=== PATIENT | female | born 1975 | race Caucasian/White ===

== ENCOUNTER 2017-09-01 16:58 | Emergency (ER) | payer OTHER, SELFPAY ==
[2017-09-01 17:11] VITALS: BP 154/83; PULSE 86; RESP 18; TEMP 36.7; O2SAT 98; BMI 34.7
--- NOTE | 2017-09-01 17:41 | CT_ITS ---
CT head/brain wo con Ordering Physician: Tavares Carney MD Patient Age: 41 years: Female HISTORY: ITS.REASON: vertigo several days with nausea TECHNIQUE: Standard CT head without contrast. Brain and bone windows performed and submitted to PACS. COMPARISON : No previous studies for comparison. Findings. The brain appears within normal limits with no hemorrhage. No mass. No subdural or extra-axial collection or findings. The ventricles and basal cisterns are clear. The posterior fossa is unremarkable. The CP angles are clear and unremarkable as noncontrast CT study. Sella and parasellar regions unremarkable as well on noncontrast study. Orbits and satisfactory. The bone windows show the skull to be intact with no fracture or lesion. Middle ear is clear. IACs unremarkable. Visualized portions Paranasal sinuses unremarkable. . IMPRESSION: No acute intracranial findings brain within normal limits.
--- NOTE | 2017-09-01 17:50 | HMH.EDGENADL ---
ED Disposition Clinical Impression: Vertigo Disposition: Home, Self-Care Condition on Discharge: Fair Additional Instructions: 1- sleep on a recliner at 30-60 degree angle. 2- add Zyrtec, continue flonase and cingulair. 3- see pcp for an MRI. 4- I will refer you to Dr Cox. 5- to return if worse. Referrals: Nalini Dangelo MD [Primary Care Provider] - Vaughn Cox MD [Physician] - - Critical Care Critical Care Time: No Attestation: On 09/01/17, the high probability of a clinically significant, sudden or life threatening deterioration of the following system(s) required my full and direct attention, intervention and personal management. The time I documented below is in addition to time spent performing reported procedures but includes the following listed in this critical care notation. Medical Decision Making Vital Signs: 09/01/17 17:11 Temperature 98.0 F Temperature Source Oral Pulse Rate [Right Radial] 86 Respiratory Rate 18 Blood Pressure [Right Arm] 154/83 Blood Pressure Mean [Right Arm] 106 Blood Pressure Source [Right Arm] Automatic Cuff Blood Pressure Position [Right Arm] Sitting 02 Sat by Pulse Oximetry 98 Oxygen Delivery Method Room Air - Lab Data Lab Results 09/01/17 18:20: WBC 11.2 H, RBC 4.89, Hgb 14.3, Hct 43.3, MCV 88.7, MCH 29.2, MCHC 32.9, RDW 13.5, Plt Count 329, MPV 8.4, Neut % (Auto) 59.7, Lymph % (Auto) 31.2, Bowie % (Auto) 6.6, Eos % (Auto) 1.6, Baso % (Auto) 0.8, Neut # (Auto) 6.7, Lymph # (Auto) 3.5, Bowie # (Auto) 0.7, Eos # (Auto) 0.2, Baso # (Auto) 0.1 09/01/17 18:20: Sodium 137, Potassium 3.7, Chloride 103, Carbon Dioxide 26, Anion Gap 11.7, BUN 7, Creatinine 0.71, Estimated Creat Clear 172, Estimated GFR 90, Est GFR ( Amer) 109, Glucose 90, Calcium 9.1, Total Bilirubin 0.1 L, AST 21, ALT 27, Alkaline Phosphatase 88, Total Protein 7.6, Albumin 3.9, Globulin 3.7 H, Albumin/Globulin Ratio 1.1 Result diagrams: 09/01/17 18:20 09/01/17 18:20 - Jordy Inquiry Pt receiving controlled substance: No Jordy was queried for this patient: No Medical Decision Making Narrative: The patient remained stable during her ED stay with no further symptoms. No vomiting. No paresthesia, no weakness no diplopia. I discussed her CT results with her. Understands that the next step is an MRI. Discussed this with the primary care physician in the morning. Advised her to add Zyrtec to her combination of Flonase and Singulair. She will sleep in a recliner because laying flat makes her symptoms worse. General Adult HPI - General Chief complaint: Weakness Stated complaint: dizziness, face numb, shaking Mode of Arrival: Ambulatory Limitations: No Limitations Description of Symptoms (Recalled from ER Triage Doc. by RN): symptoms started 8 days ago with nausea, vertigo, shakiness, and generalized weakness. pt seen pcp(anthony) on saturday was given meclizine but no improvement. - History of Present Illness HPI narrative: 41 years old white female status post hysterectomy who has been except experiencing progressive symptoms of vertigo dizziness and nausea for the past year. Symptoms has been worse for the last 8 days and she contacted her primary care physician she is scheduled for a head CT scan. Out of the another episode of dizziness blurry vision and ringing in the ears, took her Antivert and came to the ER requesting CT scan. He has read about her condition she concerned about the CPA angle tumor. Denies having chest pain shortness of breath palpitations or vomiting. She denies having radicular symptoms in the form of numbness tingling weakness loss of urine or bowel control. Onset (ago): year(s) (Progressive symptoms for the past year.) Location: head Radiation: non-radiation Consistency: intermittent Relieving factors: medication Exacerbating factors: movement (Increases by head movement while lying flat.) Treatments prior to arrival: other (She took her Anti
--- NOTE | 2017-09-01 17:53 | ED_ITS ---
ED Disposition Clinical Impression: Vertigo Disposition: Home, Self-Care Condition on Discharge: Fair Additional Instructions: 1- sleep on a recliner at 30-60 degree angle. 2- add Zyrtec, continue flonase and cingulair. 3- see pcp for an MRI. 4- I will refer you to Dr Cox. 5- to return if worse. Referrals: Nalini Dangelo MD [Primary Care Provider] - Vaughn Cox MD [Physician] - - Critical Care Critical Care Time: No Attestation: On 09/01/17, the high probability of a clinically significant, sudden or life threatening deterioration of the following system(s) required my full and direct attention, intervention and personal management. The time I documented below is in addition to time spent performing reported procedures but includes the following listed in this critical care notation. Medical Decision Making Vital Signs: 09/01/17 17:11 Temperature 98.0 F Temperature Source Oral Pulse Rate [Right Radial] 86 Respiratory Rate 18 Blood Pressure [Right Arm] 154/83 Blood Pressure Mean [Right Arm] 106 Blood Pressure Source [Right Arm] Automatic Cuff Blood Pressure Position [Right Arm] Sitting 02 Sat by Pulse Oximetry 98 Oxygen Delivery Method Room Air - Lab Data Lab Results 09/01/17 18:20: WBC 11.2 H, RBC 4.89, Hgb 14.3, Hct 43.3, MCV 88.7, MCH 29.2, MCHC 32.9, RDW 13.5, Plt Count 329, MPV 8.4, Neut % (Auto) 59.7, Lymph % (Auto) 31.2, Clare % (Auto) 6.6, Eos % (Auto) 1.6, Baso % (Auto) 0.8, Neut # (Auto) 6.7 , Lymph # (Auto) 3.5, Clare # (Auto) 0.7, Eos # (Auto) 0.2, Baso # (Auto) 0.1 09/01/17 18:20: Sodium 137, Potassium 3.7, Chloride 103, Carbon Dioxide 26, Anion Gap 11.7, BUN 7, Creatinine 0.71, Estimated Creat Clear 172, Estimated GFR 90, Est GFR ( Amer) 109, Glucose 90, Calcium 9.1, Total Bilirubin 0.1 L, AST 21, ALT 27, Alkaline Phosphatase 88, Total Protein 7.6, Albumin 3.9, Globulin 3.7 H, Albumin/Globulin Ratio 1.1 Result diagrams: 09/01/17 18:20 09/01/17 18:20 - Jordy Inquiry Pt receiving controlled substance: No Jordy was queried for this patient: No Medical Decision Making Narrative: The patient remained stable during her ED stay with no further symptoms. No vomiting. No paresthesia, no weakness no diplopia. I discussed her CT results with her. Understands that the next step is an MRI. Discussed this with the primary care physician in the morning. Advised her to add Zyrtec to her combination of Flonase and Singulair. She will sleep in a recliner because laying flat makes her symptoms worse. General Adult HPI - General Chief complaint: Weakness Stated complaint: dizziness, face numb, shaking Mode of Arrival: Ambulatory Limitations: No Limitations Description of Symptoms (Recalled from ER Triage Doc. by RN): symptoms started 8 days ago with nausea, vertigo, shakiness, and generalized weakness. pt seen pcp(anthony) on saturday was given meclizine but no improvement. - History of Present Illness HPI narrative: 41 years old white female status post hysterectomy who has been except experiencing progressive symptoms of vertigo dizziness and nausea for the past year. Symptoms has been worse for the last 8 days and she contacted her primary care physician she is scheduled for a head CT scan. Out of the another episode of dizziness blurry vision and ringing in the ears, took her Antivert and came to the ER requesting CT scan. He has read about her condition she concerned
[2017-09-01 18:33] LABS: Basophils # 0.1 K/mm3 (0-0.2); Basophils % 0.8 % (0.1-2.0); Eosinophils # 0.2 K/mm3 (0.0-0.4); Eosinophils % 1.6 % (0.1-12.0); Hematocrit 43.3 % (37.0-47.0); Hemoglobin 14.3 g/dL (12.2-16.2); Lymphocytes # 3.5 K/mm3 (0.7-4.5); Lymphocytes % 31.2 K/mm3 (10-50); Mean Corpuscular HGB Conc 32.9 g/dL (31.8-35.4); Mean Corpuscular Hemoglobin 29.2 pg (27.0-31.2); Mean Corpuscular Volume 88.7 fl (81-99); Mean Platelet Volume 8.4 fl (7.4-10.4); Monocytes # 0.7 K/mm3 (0.1-1.0); Monocytes % 6.6 % (1.7-9.3); Neutrophils # 6.7 K/mm3 (1.8-7.8); Neutrophils % 59.7 % (37.0-80.0); Platelet Count 329 K/mm3 (142-424); Red Blood Count 4.89 M/mm3 (4.20-5.40); Red Cell Distribution Width 13.5 % (11.5-17.5); White Blood Count 11.2 K/mm3 (4.8-10.8)
[2017-09-01 18:44] LABS: Alanine Aminotransferase 27 U/L (12-78); Albumin Level 3.9 gm/dL (3.4-5.0); Albumin/Globulin Ratio 1.1 (1.1-1.8); Alkaline Phosphatase 88 U/L (46-116); Anion Gap 11.7 mEq/L (5-15); Aspartate Amino Transferase 21 U/L (15-37); Bilirubin,Total 0.1 mg/dL (0.2-1.0); Blood Urea Nitrogen 7 mg/dL (7-18); Calcium 9.1 mg/dL (8.5-10.1); Carbon Dioxide 26 mmol/L (21.0-32.0); Chloride 103 mmol/L (98-107); Creatinine Clearance Estimated 172 mL/min (0-300); Creatinine,Serum 0.71 mg/dL (0.55-1.02); Estimated Glomerular Filt Rate 90 ml/min (>60); GFR (African American) 109 ML/MIN (>60); Globulin 3.7 gm/dl (1.3-3.2); Glucose 90 mg/dL (74-106); Potassium 3.7 mmoL/L (3.5-5.1); Sodium 137 mmol/L (136-145); Total Protein,Serum 7.6 gm/dL (6.4-8.2)
[2017-09-01 20:15] VITALS: BP 117/79; PULSE 76; RESP 20
== END 2017-09-01 20:14 | disposition home or self-care (01) ==
PROVIDERS: Emergency Provider Emergency Medicine; Family Provider Family Medicine; PCP Family Medicine
DX: R42 Dizziness and giddiness (principal); Z79.899 Other long term (current) drug therapy; Z90.710 Acquired absence of both cervix and uterus
CPT/HCPCS: 70450; 80053; 85025; 99283

== ENCOUNTER → 2018-11-06 11:19 | Outpatient (CLI) | payer OTHER, SELFPAY ==
[2018-11-06 11:44] LABS: Basophils # 0.1 K/mm3 (0-0.2); Basophils % 0.8 % (0.1-2.0); Eosinophils # 0.1 K/mm3 (0.0-0.4); Eosinophils % 1.5 % (0.1-12.0); Hematocrit 39.9 % (37.0-47.0); Hemoglobin 13.1 g/dL (12.2-16.2); Lymphocytes # 2.9 K/mm3 (0.7-4.5); Lymphocytes % 35.3 % (10-50); Mean Corpuscular HGB Conc 32.9 g/dL (31.8-35.4); Mean Corpuscular Hemoglobin 31.2 pg (27.0-31.2); Mean Corpuscular Volume 94.7 fl (81-99); Mean Platelet Volume 8.9 fl (7.4-10.4); Monocytes # 0.4 K/mm3 (0.1-1.0); Monocytes % 5.3 % (1.7-9.3); Neutrophils # 4.7 K/mm3 (1.8-7.8); Platelet Count 275 K/mm3 (142-424); Red Blood Count 4.21 M/mm3 (4.20-5.40); White Blood Count 8.2 K/mm3 (4.8-10.8)
[2018-11-06 13:04] LABS: Alanine Aminotransferase 26 U/L (12-78); Albumin/Globulin Ratio 1.2 (1.1-1.8); Alkaline Phosphatase 67 U/L (46-116); Anion Gap 13.3 mEq/L (5-15); Aspartate Amino Transferase 17 U/L (15-37); Bilirubin,Total 0.3 mg/dL (0.2-1.0); Blood Urea Nitrogen 13 mg/dL (7-18); CKMB Relative Index 0.9 U/L (0-4.0); Calcium 9.4 mg/dL (8.5-10.1); Carbon Dioxide 28 mmol/L (21.0-32.0); Chloride 105 mmol/L (98-107); Creatine Kinase 118 U/L (26-192); Creatine Kinase MB 1.1 ng/ml (0.0-3.6); Creatinine,Serum 0.72 mg/dL (0.55-1.02); Estimated Glomerular Filt Rate 88 ml/min (>60); Free T4 (Free Thyroxine) 0.82 ng/dl (0.76-1.46); GFR (African American) 106 ML/MIN (>60); Globulin 3.3 gm/dl (1.3-3.2); Glucose 96 mg/dL (74-106); Potassium 4.3 mmoL/L (3.5-5.1); Sodium 142 mmol/L (136-145); Thyroid Stimulating Hormone 1.88 uIU/ml (0.358-3.740); Total Protein,Serum 7.3 gm/dL (6.4-8.2); Troponin I 0.02 ng/ml (0.00-0.06)
[2018-11-07 07:28] LABS: Vitamin B12 879 pg/mL (232-1245); Vitamin D 25 Hydroxy 44.5 ng/mL (30.0-100.0)
== END ==
PROVIDERS: PCP Family Medicine; Visit Provider Physician Assistant
DX: R07.9 Chest pain, unspecified (principal); R00.2 Palpitations; R06.02 Shortness of breath; E03.9 Hypothyroidism, unspecified; E55.9 Vitamin D deficiency, unspecified; I10 Essential (primary) hypertension
CPT/HCPCS: 36415; 80053; 82550; 82553; 82607; 82652; 84439; 84443; 84484; 85025; 93005; 93225; 93226

== ENCOUNTER → 2018-11-17 10:55 | Outpatient (CLI) | payer OTHER, SELFPAY ==
--- NOTE | 2018-11-17 11:09 | US_ITS ---
US spinal canal content CLINICAL INDICATION: ITS.REASON: MASS ON BACK ORDERING PHYSICIAN: MELIDA Flores PATIENT AGE: 43 years Comparison: None FINDINGS: Palpable area of the inferior aspect of the left scapula was scanned demonstrating a 3.8 x 1.1 x 3 cm area of isoechogenicity in the subcutaneous tissues which may represent a lipoma. This does not represent a simple cyst IMPRESSION: Possible lipoma over the inferior aspect of left scapula. This can be confirmed with CT if clinically warranted
== END ==
PROVIDERS: PCP Family Medicine; Visit Provider Physician Assistant
DX: R22.2 Localized swelling, mass and lump, trunk (principal)
CPT/HCPCS: 76800

== ENCOUNTER → 2018-11-25 15:20 | Outpatient (POV) | payer OTHER, SELFPAY | PROVIDERS: Visit Provider Dermatology | DX: Z00.00 Encounter for general adult medical examination without abnormal findings (principal) ==

== ENCOUNTER 2018-12-05 10:04 | Day surgery (SDC) | payer OTHER, SELFPAY ==
[2018-12-05] VITALS (11 sets, daily range): BP systolic 120–140; BP diastolic 70–91; PULSE 60–82; RESP 16–20; TEMP 36.1–36.6; O2SAT 98–99; BMI 34.7
--- NOTE | 2018-12-05 11:19 | P.PN_ITS ---
[facility] Anesthesia Checklist - Patient Identification Patient Identification: Arm Band, Verbal (Name & ) - Structural Data Admitted From: Home Planned Operative Procedure/s: Excision of lipoma Left back Consent for Planned Operative Procedure(s) Verified: Yes Verified Documents: Surgical Consent, History and Physical - NPO Status Verified Time NPO: 21:00 - Additional verifications Anesthesia Reactions: No - Airway Assessment C-Spine Mobility Assessed: Yes TMJ Mobility Assessed: Yes Dentition: Good Dentition - Neurological Assessment Level of Consciousness: Awake Hx Seizures: No Numbness or tingling in extremities: No - Anesthesia Plan Anesthesia Risk discussed: Yes ASA Class: III Anesthesia Type: General [facility] History I have reviewed the patient's past medical history: Yes Medical History: Reports:: Depression, Hypertension Denies:: Cancer, Diabetes Mellitus Type 1, Diabetes Mellitus Type 2, Internal Pacemaker, MRSA, Seizures *Have you ever received a pneumonia vaccine?: No *Have you received a flu vaccine this season?: No Other Medical History: Reports: Other. Denies: Blood Transfusion Reaction Comment:: Obesity Other Surgeries: Yes: Cholecystectomy, Hysterectomy-Total, Other. No: Pacemaker Amputation: No - *Social History Smoking Status: Never smoker Alcohol Intake: never *Occupational Status:: employed Housing: house Household Members: spouse *Travel in the last 8 weeks: None - Psychiatric History Expresses thoughts of harming self/others: None Suicide Plan Description: No Plan Pschychiatric History:: Reports:: Anxiety Family Hx:: Cancer, Hypertension
--- NOTE | 2018-12-05 12:13 | HMH.OPNOTE ---
Date of procedure: 12/05/18 Pre-op Diagnosis:: Left posterior shoulder/upper back lipoma (5 cm) Post-op Diagnosis:: Left posterior shoulder/upper back vascular lesion/encapsulated hematoma with overlying lipomatous lesions Procedure performed:: Excision of left posterior shoulder/upper back lesion (5 cm) Surgeon:: Biju Cody MD WEB SEARCH EVALUATOR:: Mahad Alexander Anesthesia: LMA Estimated blood loss (mL): 15 Operative findings:: Multiple small lipomatous lesions within subcutaneous tissue Encapsulated hematoma versus vascular lesion (intramuscular) Operative note:: After informed consent was obtained the patient was taken to the operating room and placed in the supine position. General anesthesia was induced and she was transferred to a right lateral decubitus position. After infiltration local anesthetic and incision was made overlying the palpable lesion. Multiple small lipomatous growths were excised from the subcutaneous tissue. These were somewhat diffuse. Once they were excised a palpable lesion was still noticeable under the fascial margin. This intramuscular lesion was felt to most likely be customer care representative of the positive palpation/pain. The fascia was carefully opened with electrocautery. What appeared to be an encapsulated hematoma versus vascular lesion was then excised from surrounding tissue and passed off for pathologic evaluation. No ongoing bleeding noted. Hemostasis of the entire bed was achieved with electrocautery. The fascia was reapproximated with running Vicryl. The deep subcutaneous tissue was reapproximated in a similar manner and skin was then closed with interrupted 4-0 nylon. Dressings were applied and the patient was transferred to recovery in stable condition after reversal of anesthetic agents. Condition: stable Disposition: PACU Specimens:: 1) left posterior shoulder/upper back vascular lesion/encapsulated hematoma 2) left posterior shoulder/upper back lipomatous lesions Complications:: No immediate
--- NOTE | 2018-12-05 12:17 | XR_ITS ---
XR chest portable HISTORY: Status post thoracic surgery, evaluate for possible pneumothorax ITS.REASON: possible left PTX ORDERING PHYSICIAN: Biju Cody MD PATIENT AGE: 43 years COMPARISON: 06/14/2017 FINDINGS: The cardiomediastinal silhouette and pulmonary vascularity are within normal limits. The lungs are clear without infiltrates, suspicious nodules, or pleural effusions. No acute bony abnormalities. IMPRESSION: Negative chest, no acute finding No evidence of pneumothorax
--- NOTE | 2018-12-05 12:17 | P.OP_ITS ---
Date of procedure: 12/05/18 Pre-op Diagnosis:: Left posterior shoulder/upper back lipoma (5 cm) Post-op Diagnosis:: Left posterior shoulder/upper back vascular lesion/encapsulated hematoma with overlying lipomatous lesions Procedure performed:: Excision of left posterior shoulder/upper back lesion (5 cm) Surgeon:: Biju Cody MD BIT TAPPER:: Mahad Alexander Anesthesia: LMA Estimated blood loss (mL): 15 Operative findings:: Multiple small lipomatous lesions within subcutaneous tissue Encapsulated hematoma versus vascular lesion (intramuscular) Operative note:: After informed consent was obtained the patient was taken to the operating room and placed in the supine position. General anesthesia was induced and she was transferred to a right lateral decubitus position. After infiltration local anesthetic and incision was made overlying the palpable lesion. Multiple small lipomatous growths were excised from the subcutaneous tissue. These were somewhat diffuse. Once they were excised a palpable lesion was still noticeable under the fascial margin. This intramuscular lesion was felt to most likely be signs sales representative of the positive palpation/pain. The fascia was carefully opened with electrocautery. What appeared to be an encapsulated hematoma versus vascular lesion was then excised from surrounding tissue and passed off for pathologic evaluation. No ongoing bleeding noted. Hemostasis of the entire bed was achieved with electrocautery. The fascia was reapproximated with running Vicryl. The deep subcutaneous tissue was reapproximated in a similar manner and skin was then closed with interrupted 4-0 nylon. Dressings were applied and the patient was transferred to recovery in stable condition after reversal of anesthetic agents. Condition: stable Disposition: PACU Specimens:: 1) left posterior shoulder/upper back vascular lesion/encapsulated hematoma 2) left posterior shoulder/upper back lipomatous lesions Complications:: No immediate
--- NOTE | 2018-12-05 12:20 | HMH.ANESI ---
[facility] Anesthesia Record Part I Intake, IV Amount: 700 Estimated blood loss (mL): 20 Urine output (mL): 0 (NM) Blood Products used (#): none Blood Pressure: 140/87 SaO2: 98 Pulse Rate: 82 Respiratory Rate: 16 Temperature: 97.8 F Patient is:: Awake, Stable Stable to PACU at:: 12:15
--- NOTE | 2018-12-05 12:21 | P.PN_ITS ---
[facility] Anesthesia Record Part II Discharge Time: 12:45 Destination: Surgical Day Care (OP Surgery) PACU nurse assessment reviewed?: Yes Patient Condition:: Good Anesthesia Complications:: None Swallowing reflex intact?: Yes Cyanosis?: No
== END 2018-12-05 13:40 | disposition home or self-care (01) ==
LOC: OR 10:05
PROVIDERS: PCP Family Medicine; Visit Provider Surgery
PROC: (CPT 11406; principal; 2018-12-05 11:30)
DX: D17.1 Benign lipomatous neoplasm of skin and subcutaneous tissue of trunk (principal); D18.01 Hemangioma of skin and subcutaneous tissue
CPT/HCPCS: 11406; 71045; 96374; J2405

== ENCOUNTER → 2019-07-29 12:25 | Outpatient (CLI) | payer OTHER, SELFPAY ==
--- NOTE | 2019-07-29 12:36 | ECG_ITS ---
APPROVED REPORT Exam: Resting ECG HR:61 bpm ECG Measurements Heart Rate 61 AXES DC 150 P 35 QRSd 76 QRS 50 QT 392 T 24 QTc 394 <Conclusion> Normal sinus rhythm Normal ECG Electronically signed by : Ayan Fairchild, 07/30/2019 09:16:17
== END ==
PROVIDERS: PCP Nurse Practitioner Family; Visit Provider Nurse Practitioner Family
DX: R00.2 Palpitations (principal)
CPT/HCPCS: 93005

== ENCOUNTER → 2019-09-28 09:28 | Outpatient (CLI) | payer OTHER, SELFPAY ==
--- NOTE | 2019-09-28 09:30 | CA_ITS ---
APPROVED REPORT EXAM: Comprehensive 2D, Doppler, and color-flow Echocardiogram Zinc Plating Machine Operator: Janice Elliott RDCS Ht: 5 ft 9 in Wt: 240lbs BSA: 2.23 BP: 130/80 mmHg Indications: Murmur, Hypertension/HDD 2D Dimensions LVOT 2.11 cm (M/F) 1.5-2.5 M-Mode Dimensions RVDd 3.00 cm (0.9-2.6) LVDd 5.61 cm (3.5-5.7) LVDs 3.94 cm (3.5-5.7) IVSd 0.76 cm (0.6-1.1) PWd 0.91 cm (0.6-1.1) EF (Teich) 56.30% FS 29.80% EDV (Teich) 154.30 mL ESV (Teich) 67.50 mL LV Diastology E/A Ratio 1.13 Aortic Valve LVOT Max 86.00 (70-110 cm/s) LVOT VTI 21.03 cm Mitral Valve MV A Velocity 64.00 (40-130 cm/s) Left Ventricle Left atrium is mildly enlarged, left ventricle is normal size, mild concentric left ventricular hypertrophy, visually estimated ejection fraction 55% with no regional wall motion abnormality, grade 1 diastolic dysfunction seen without tissue Doppler evidence of raise left atrial pressure. Right Ventricle Right atrium and right ventricular normal size and contractility. Aortic Valve Aortic valve is thickened and calcified with mild restriction in the leaflet mobility, the mean gradient across aortic valve is 13 mmHg, valve area is 1.4 cm, represents mild aortic stenosis, there is mild aortic insufficiency. Mitral Valve Mitral inflow velocity within normal range, there is no mitral stenosis, there is mild mitral regurgitation. Tricuspid Valve Tricuspid valve is grossly normal, there is no tricuspid stenosis, there is mild tricuspid regurgitation, tricuspid regurgitation jet velocity is inadequate for calculation of the right ventricular systolic pressure. Pulmonic Valve Pulmonic valve is poorly visualized. Great Vessels Aortic root is normal size. Pericardium No significant pericardial effusion noted. Conclusion 1. Mildly enlarged left atrium, normal left ventricular size, mild concentric left ventricular hypertrophy, visually estimated ejection fraction 55% with no regional wall motion abnormality, grade 1 diastolic dysfunction seen without tissue Doppler evidence of raise left atrial pressure. 2. Thickened and calcified aortic valve with mean gradient across valve of 13 mmHg, valve area 1.4 cm??? represents mild aortic stenosis, there is mild aortic insufficiency. 3. Mild mitral and tricuspid regurgitation. 4. No significant pericardial effusion noted. Electronically signed by : Jeffry White, 09/28/2019 18:52:00
[2019-09-28 12:18] LABS: Alanine Aminotransferase 22 U/L (9-52); Albumin Level 3.8 g/dL (3.4-5.0); Albumin/Globulin Ratio 1.2 (1.1-1.8); Alkaline Phosphatase 65 U/L (46-116); Anion Gap 12.7 mEq/L (5-15); Aspartate Amino Transferase 19 U/L (15-37); Bilirubin,Total 0.2 mg/dL (0.2-1.0); Blood Urea Nitrogen 14 mg/dL (7-18); Calcium 9.1 mg/dL (8.5-10.1); Carbon Dioxide 27 mmol/L (21.0-32.0); Chloride 109 mmol/L (98-107); Chol/HDL Ratio 4.6 (1-3.5); Cholesterol 217 mg/dL (140-200); Estimated Glomerular Filt Rate 78 ml/min (>60); Free T4 (Free Thyroxine) 0.83 ng/dl (0.76-1.46); GFR (African American) 94 ML/MIN (>60); Globulin 3.3 gm/dl (1.3-3.2); Glucose 96 mg/dL (74-106); HDL Cholesterol 47 mg/dL (29-89); LDL Cholesterol 145 mg/dL (0-130); Potassium 4.7 mmoL/L (3.5-5.1); Sodium 144 mmol/L (137-145); Thyroid Stimulating Hormone 1.96 uIU/ml (0.358-3.740); Total Protein,Serum 7.1 g/dL (6.4-8.2); Triglycerides 124 mg/dL (30-200); VLDL Cholesterol 25 mg/dL (0-40)
== END ==
LOC: RT 09:28
PROVIDERS: PCP Physician Assistant; Visit Provider Physician Assistant
DX: R01.1 Cardiac murmur, unspecified (principal); R00.2 Palpitations; Z13.220 Encounter for screening for lipoid disorders
CPT/HCPCS: 36415; 80053; 80061; 84439; 84443; 93306

== ENCOUNTER → 2019-09-29 09:44 | Outpatient (CLI) | payer OTHER, SELFPAY | LOC: RT 09:46 | PROVIDERS: PCP Family Medicine; Visit Provider Physician Assistant | DX: R00.2 Palpitations (principal); R07.9 Chest pain, unspecified; I10 Essential (primary) hypertension; R94.31 Abnormal electrocardiogram [ECG] [EKG] | CPT/HCPCS: 93225; 93226 ==

== ENCOUNTER → 2019-10-05 14:59 | Outpatient (CLI) | payer OTHER, SELFPAY ==
--- NOTE | 2019-10-05 15:00 | CA_ITS ---
APPROVED REPORT Exam: Exercise Treadmill Technologist: Kristy Willis Ht: 5 ft 9 in Wt: 239 lbs BSA: 2.23 m2 Indications: Chest pain, Palpitations Medical History Medications: Sertraline,,,,, NeBivolol,,,,, Stress Test Details Test: Jamie HR Resting HR: 83 bpm Max Heart Rate (APMHR): 175 bpm Max HR Achieved: 156 bpm Target HR (85% APMHR): 148 bpm % of APMHR: 89 Recovery HR: 84 bpm BP Resting BP: 131.0/69.0 mmHg Max BP: 168.0/85.0 mmHg Recovery BP: 141.0/75.0 mmHg ECG Clinical Exercise duration: 06:53 min Highest Stage Achieved: Exercise capacity: 10.1 METs Stress ECG Conclusion Resting ECG: Sinus rhythm Jamie protocol completed. Patient exercised 06:53. Test stopped due to shortness of breath. Symptoms: Shortness of breath at peak exercise. Resolved in recovery. No chest pain. Arrhythmias/Ectopy: Occasional PVC ST-T Changes: Less than 1.[address] depression Conclusion: GXT only. Less than 1.[address] depression. Appropriate blood pressure response. Good exercise capacity. Electronically signed by : Jeffry White, 10/05/2019 20:12:02
== END ==
PROVIDERS: PCP Family Medicine; Visit Provider Physician Assistant
DX: R07.9 Chest pain, unspecified (principal); R00.2 Palpitations; R94.31 Abnormal electrocardiogram [ECG] [EKG]; I35.0 Nonrheumatic aortic (valve) stenosis; I35.1 Nonrheumatic aortic (valve) insufficiency; E78.5 Hyperlipidemia, unspecified; I10 Essential (primary) hypertension
CPT/HCPCS: 93017

== ENCOUNTER → 2019-10-20 14:49 | Outpatient (CLI) | payer OTHER, SELFPAY ==
--- NOTE | 2019-10-20 14:49 | US_ITS ---
PROCEDURE: US THYROID CLINICAL INDICATION: palps COMPARISON: No exams were available for comparison FINDINGS: Right lobe: 4.3 x 1.6 x 1.6 cm Left lobe: 4.4 x 1.4 x 2 cm Isthmus: Unremarkable Additional findings: Homogeneous echogenicity noted of the thyroid gland on both sides. No discrete nodule. IMPRESSION: Unremarkable thyroid ultrasound Dictated by: Madhu Ernandez MD 10/20/2019 15:50 Electronically signed by Madhu Ernandez MD in [place] 10/20/2019 15:50
== END ==
PROVIDERS: PCP Family Medicine; Visit Provider Urology
DX: R00.2 Palpitations (principal)
CPT/HCPCS: 76536

== ENCOUNTER → 2019-11-20 10:05 | Outpatient (CLI) | payer OTHER, SELFPAY ==
--- NOTE | 2019-11-20 10:06 | MM_ITS ---
PROCEDURE: MM DIG MAMM BI DX W/CAD Digital Breast Tomosynthesis Included CLINICAL INDICATION: abnormal xmg and pt. found lump in her Rt. breast COMPARISON: US BREAST RT COMPLETE from 11/20/2019 TECHNIQUE: Standard CC and MLO images and 3D Tomosynthesis was obtained. R2 CAD reviewed. Right breast ultrasound complete with axilla FINDINGS: There is average fibroglandular tissue. There is a large right lipoma involving the upper outer aspect of the right breast. This measures approximately 13x 9x 9.8 cm. Benign-appearing calcifications are present. A marker is placed along the lower inner aspect of the right breast denoting the area of palpable concern. There is an area of increased density at the inferior mammary fold probably due to overlap the tissues just posterior to the placed area of palpable concern. No malignant appearing mass or malignant-appearing microcalcification. There are probably benign calcifications in the outer aspect of the right breast. A Right breast ultrasound: There is a 4 mm cyst at 1 o'clock and 5 mm cyst at 3 o'clock near the nipple. No sonographic abnormality evident at the area of palpable concern. IMPRESSION: Probably benign findings. No convincing evidence of malignancy. Large right breast lipoma with scattered calcifications in the outer aspect of the right breast. Recommend six-month mammographic and sonographic follow-up BI-RAD Category: 3 Probably Benign Finding Short Term Follow-up FOLLOW-UP: 6M 6Month Follow-up (A letter has been sent to the patient regarding results of the study.) Dictated by: Madhu Ernandez MD 12/02/2019 09:44 Electronically signed by Madhu Ernandez MD in [place] 12/02/2019 09:44
--- NOTE | 2019-11-20 11:19 | US_ITS ---
PROCEDURE: US BREAST RT COMPLETE CLINICAL INDICATION: abnormal xmg and pt. found lump in her Rt. breast COMPARISON: US BREAST RT COMPLETE from 11/20/2019 TECHNIQUE: Standard CC and MLO images and 3D Tomosynthesis was obtained. R2 CAD reviewed. Right breast ultrasound complete with axilla FINDINGS: There is average fibroglandular tissue. There is a large right lipoma involving the upper outer aspect of the right breast. This measures approximately 13x 9x 9.8 cm. Benign-appearing calcifications are present. A marker is placed along the lower inner aspect of the right breast denoting the area of palpable concern. There is an area of increased density at the inferior mammary fold probably due to overlap the tissues just posterior to the placed area of palpable concern. No malignant appearing mass or malignant-appearing microcalcification. There are probably benign calcifications in the outer aspect of the right breast. A Right breast ultrasound: There is a 4 mm cyst at 1 o'clock and 5 mm cyst at 3 o'clock near the nipple. No sonographic abnormality evident at the area of palpable concern. IMPRESSION: Probably benign findings. No convincing evidence of malignancy. Large right breast lipoma with scattered calcifications in the outer aspect of the right breast. Recommend six-month mammographic and sonographic follow-up BI-RAD Category: 3 Probably Benign Finding Short Term Follow-up FOLLOW-UP: 6M 6Month Follow-up (A letter has been sent to the patient regarding results of the study.) The Dictated by: Madhu Ernandez MD 12/02/2019 09:45 Electronically signed by Madhu Ernandez MD in [place] 12/02/2019 09:45
== END ==
PROVIDERS: PCP Psychiatry & Neurology Sleep Medicine; Visit Provider Nurse Practitioner Obstetrics & Gynecology
DX: R92.8 Other abnormal and inconclusive findings on diagnostic imaging of breast (principal)
CPT/HCPCS: 76641; 77062; 77066; G0279

== ENCOUNTER → 2020-05-09 13:53 | Outpatient (CLI) | payer OTHER, SELFPAY ==
--- NOTE | 2020-05-09 13:56 | MM_ITS ---
PROCEDURE: MM DIG MAMM DX UNILAT RT CAD Digital Breast Tomosynthesis Included CLINICAL INDICATION: 6 mo. follow up Six-month follow-up, bloody discharge COMPARISON: MG MM DIG MAMM BI DX W/CAD from 11/20/2019 US US BREAST RT COMPLETE from 11/20/2019 US US BREAST RT COMPLETE from 05/09/2020 TECHNIQUE: Standard CC and MLO images and 3D Tomosynthesis was obtained. R2 CAD reviewed. 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 There are scattered benign-appearing calcifications. No malignant appearing mass or malignant-appearing microcalcification is evident. There remains an area of increased density in the inframammary fold which may be due to summation artifact from overlying skin folds Right breast ultrasound: A 5 mm cyst is present at 1 o'clock. 4 mm cyst at 2 o'clock. 7 mm complicated cyst at 3 o'clock IMPRESSION: Benign findings. Recommend return to screening October 2020 BI-RAD Category: 2 Benign Finding(s) FOLLOW-UP: 6M 6Month Follow-up (A letter has been sent to the patient regarding results of the study.) Dictated by: Madhu Ernandez MD 05/11/2020 17:35 Madhu Ernandez MD in [place] 05/11/2020 17:35
== END ==
PROVIDERS: PCP Family Medicine; Visit Provider Nurse Practitioner Obstetrics & Gynecology
DX: R92.8 Other abnormal and inconclusive findings on diagnostic imaging of breast (principal)
CPT/HCPCS: 76641; 77061; 77065; G0279

== ENCOUNTER 2020-08-08 14:51 | Emergency (ER) | payer OTHER, SELFPAY ==
--- NOTE | 2020-08-08 15:23 | HMH.EDUTC ---
[facility] Disposition Clinical Impression: Viral syndrome Disposition: Home, Self-Care Condition on Discharge: Good Instructions: Preventing the Spread of Coronavirus Discharge Instructions Additional Instructions: Drink plenty of fluids. Take tylenol for pain or fever. Return if you begin to have difficulty breathing. Follow up with your regular doctor. GO TO THE ER FOR ANY WORSENING SYMPTOMS Prescriptions: Ondansetron [Zofran 4mg ODT] 4 mg PO Q8HP PRN #12 tab.rapdis PRN Reason: Nausea Transmission Status: Received by [id number] Referrals: Yuni Xie MD [Primary Care Provider] - Time of Disposition: 15:49 Medical Decision Making - Medical Records Medical records reviewed: No: I reviewed the patient's medical records. - Jordy Inquiry Pt receiving controlled substance: No Vital Signs: 08/08/20 15:28 08/08/20 15:51 Temperature 98.2 F 98.2 F Temperature Source Oral Pulse Rate 58 L Pulse Rate [Left] 58 L Respiratory Rate 16 17 Blood Pressure 127/84 Blood Pressure [Right Arm] 127/84 Blood Pressure Mean [Right Arm] 98 Blood Pressure Source [Right Arm] Automatic Cuff Blood Pressure Position [Right Arm] Sitting 02 Sat by Pulse Oximetry 98 Oxygen Delivery Method Room Air Orders (Tests/Meds): ORDERS Category Date Time Status Covid-19 Nasal PCR Sendout P&C Routine Lab 08/08/20 15:15 Received [facility] HPI - General Stated complaint: covid exposure Time Seen by Provider: 08/08/20 15:23 - History of Present Illness Provider Complaint: Her son has covid. She states that since yesteday she has had body aches and sore throat. - Related Data Home Medications Medication Instructions Recorded Confirmed sertraline 100 mg tablet 100 mg PO DAILY tab 11/26/18 06/29/20 nebivolol 5 mg tablet 5 mg PO BID tab 09/29/19 06/29/20 Previous Rx's Medication Instructions Recorded Ondansetron [Zofran 4mg ODT] 4 mg PO Q8HP PRN #12 tab.rapdis 08/08/20 Allergies Allergy/AdvReac Type Severity Reaction Status Date / Time No Known Drug Intolerances Allergy Unknown NA Verified 08/08/20 15:47 [facility] History - Hepatitis A Screen Attestation statement:: This patient has been screened for Hepatitis A risk factors. I have reviewed the patient's past medical history: Yes Medical History: Reports:: Anxiety, Depression, Heart Murmur, Hypertension Denies:: Cancer, Diabetes Mellitus Type 1, Diabetes Mellitus Type 2, Internal Pacemaker, MRSA, Seizures Other Medical History: Reports: Thyroid Disease, Other. Denies: Blood Transfusion Reaction Comment: Obesity Other Surgeries: Yes: Cholecystectomy, Colonoscopy, Diagnostic Lap, Hysterectomy-Total, Other. No: Pacemaker Amputation: No Comment: shoulder lipoma removed, ganglion cyst partial removal - Social History Smoking Status: Never smoker Alcohol Intake: never Occupational Status: employed Housing: house Household Members: spouse - Psychiatric History Pschychiatric History:: Reports:: Anxiety, Depression Family Hx:: Cancer, Hypertension ROS Obtained: Yes All systems reviewed & no additional complaints - Constitutional Constitutional: Reports system reviewed and no additional complaints, except as docu - Eyes Eyes: Reports system reviewed and no additional complaints, except as docu - ENT Ears, Nose, Mouth, and Throat: Reports system reviewed and no additional complaints, except as docu - Cardiovascular Cardiovascular: Reports system reviewed and no additional complaints, except as docu - Respiratory Respiratory: Yes system reviewed and no additional complaints, except as docu - Gastrointestinal Gastrointestingal: Reports: system reviewed and no additional complaints, except as docu Physical Exam - General General appearance: alert, in no apparent distress - Head Head exam: atraumatic, normocephalic, normal inspection - Eye Eye exam: Present: normal appearance, PERRL, EOMI -
[2020-08-08 15:28] VITALS: BP 127/84; PULSE 58; RESP 16; TEMP 36.8; O2SAT 98; BMI 18.4
[2020-08-08 15:51] VITALS: BP 127/84; PULSE 58; RESP 17; TEMP 36.8; O2SAT 98
[2020-08-10 10:01] LABS: Covid-19 Nasal PCR Sendout P&C Negative
== END 2020-08-08 15:51 | disposition home or self-care (01) ==
PROVIDERS: Emergency Provider Nurse Practitioner Family; PCP Family Medicine
DX: Z20.828 Contact with and (suspected) exposure to other viral communicable diseases (principal); B34.9 Viral infection, unspecified; F41.8 Other specified anxiety disorders; I10 Essential (primary) hypertension; R01.1 Cardiac murmur, unspecified; Z79.899 Other long term (current) drug therapy
CPT/HCPCS: 99201; U0004

== ENCOUNTER 2020-11-26 06:59 | Emergency (ER) | payer OTHER, SELFPAY ==
[2020-11-26] VITALS (7 sets, daily range): BP systolic 111–132; BP diastolic 69–80; PULSE 59–78; RESP 12–16; TEMP 36.6–36.9; O2SAT 96–98; BMI 38.0; BMI 39.7
--- NOTE | 2020-11-26 06:47 | ECG_ITS ---
APPROVED REPORT Exam: Resting ECG HR:63 bpm ECG Measurements Heart Rate [address] 146 P 35 QRSd 86 QRS 1 QT 408 T 81 QTc 417 Conclusion Normal sinus rhythm Normal ECG Electronically signed by : Ayan Fairchild, 11/27/2020 07:26:07
--- NOTE | 2020-11-26 07:07 | XR_ITS ---
PROCEDURE: XR CHEST 2V CLINICAL HISTORY: chest pain COMPARISON: CR CXR CHEST(2 VIEWS-NOT PORTABLE) from 06/14/2017 FINDINGS: The cardiomediastinal silhouette and pulmonary vascularity are within normal limits. The lungs are clear without infiltrates, suspicious nodules, or pleural effusions. No acute bony abnormalities. IMPRESSION: No acute findings. Dictated by: Madhu Ernandez MD 11/26/2020 09:07 Madhu Ernandez MD in [place] 11/26/2020 09:07
--- NOTE | 2020-11-26 07:07 | CT_ITS ---
PROCEDURE: CT ABDOMEN PELVIS W CON CLINICAL INDICATION: Abd Pain Abdominal pain COMPARISON: No exams were available for comparison TECHNIQUE: IV Contrast: 75ML Isovue 370 Oral Contrast None Axial images obtained with sagittal and coronal reformats. All CT scans at the facility use one or more dose reduction, viz: automated exposure control, ma/kV adjustment per patient size (including targeted exams where dose is matched to indication, i.e. head), or iterative reconstruction technique. FINDINGS: LOWER THORAX: No acute finding ABDOMEN & PELVIS: Fatty liver. No focal liver lesion evident. Borderline splenomegaly at 13 cm. The adrenal glands, pancreas, and kidneys have an unremarkable appearance. Prior cholecystectomy. Mild amount retained colonic feces. No intestinal obstruction or free air. No evidence of appendicitis or diverticulitis. Tiny umbilical hernia containing fat. Prior hysterectomy. Mild degenerative disc disease L5-S1. IMPRESSION: No acute finding Dictated by: Madhu Ernandez MD 11/26/2020 08:25 Madhu Ernandez MD in [place] 11/26/2020 08:25
[2020-11-26 07:24] LABS: Basophils # 0.1 K/mm3 (0-0.2); Basophils % 0.8 % (0.1-2.0); Eosinophils # 0.2 K/mm3 (0.0-0.4); Eosinophils % 2.6 % (0.1-12.0); Hematocrit 40.4 % (37.0-47.0); Hemoglobin 13.5 g/dL (12.2-16.2); Lymphocytes # 3.2 K/mm3 (0.7-4.5); Lymphocytes % 35.3 % (10-50); Mean Corpuscular HGB Conc 33.4 g/dL (31.8-35.4); Mean Corpuscular Hemoglobin 30.6 pg (27.0-31.2); Mean Corpuscular Volume 91.8 fl (81-99); Mean Platelet Volume 8.4 fl (7.4-10.4); Monocytes # 0.5 K/mm3 (0.1-1.0); Monocytes % 5.5 % (1.7-9.3); Neutrophils % 55.8 % (37.0-80.0); Platelet Count 244 K/mm3 (142-424); Red Cell Distribution Width 13.2 % (11.5-17.5)
[2020-11-26 07:33] LABS: Alanine Aminotransferase 20 U/L (12-78); Albumin Level 4.3 g/dl (3.5-5.0); Alkaline Phosphatase 76 U/L (38-126); Amylase 48 U/L (30-110); Anion Gap 13.8 mEq/L (5-15); Aspartate Amino Transferase 28 U/L (14-36); Bilirubin,Indirect 0.4 mg/dL (0.0-0.9); Bilirubin,Total 0.4 mg/dl (0.2-1.3); Bilirubin,Unconjugated 0.4 mg/dL (0.0-1.1); Blood Urea Nitrogen 12 mg/dl (7-17); Calcium 9.5 mg/dl (8.4-10.2); Carbon Dioxide 20 mmol/L (22.0-30.0); Chloride 108 mmol/L (98-107); Creatinine Clearance Estimated 181 mL/min (50-200); Estimated Glomerular Filt Rate 90 ml/min (>60); GFR (African American) 109 ML/MIN (>60); Glucose 117 mg/dl (74-100); Lipase 136 U/L (23-300); Potassium 3.8 mmoL/L (3.5-5.1); Sodium 138 mmol/L (136-145); Total Protein,Serum 7.3 g/dl (6.3-8.2)
[2020-11-26 07:38] LABS: C-Reactive Protein 8.7 mg/L (0-4)
[2020-11-26 07:49] LABS: Troponin I < 0.01 ng/ml (0.00-0.034)
[2020-11-26 07:51] LABS: Erythrocyte Sedimentation Rate 23 mm/hr (0-20)
[2020-11-26 07:52] LABS: Procalcitonin 0.031 ng/mL (0.0-2.0)
--- NOTE | 2020-11-26 07:58 | HMH.EDGENADL ---
ED Disposition Clinical Impression: Atypical chest pain, Globus sensation Disposition: Home, Self-Care Condition on Discharge: Fair Instructions: Esophageal Dysphagia, DI for Gastroesophageal Reflux Disease (GERD), DI for Atypical Chest Pain Additional Instructions: You have been evaluated for atypical chest pain, throat pain, pain with swallowing. This is concerning for esophageal pathology, globus. Please follow-up with your primary care doctor in 24 to 48 hours. Take omeprazole. Take Carafate as needed for symptoms. Follow bland diet. Do not eat before bedtime. Follow-up with gastroenterology when available. Return to the emergency department at once for any new or worsening chest pain, shortness of breath, other concerns. Prescriptions: Sucralfate [Carafate 1gm/10mL Susp] 1 gm PO ACHS #500 ml Transmission Status: Pending to [facility] Omeprazole [Omeprazole 20mg Capsule] 20 mg PO DAILY #30 cap Transmission Status: Pending to [facility] Referrals: Yuni Xie MD [Primary Care Provider] - Patrick Zaidi MD [Staff Physician] - Time of Disposition: 10:34 - Critical Care Critical Care Time: No Attestation: On 11/26/20, the high probability of a clinically significant, sudden or life threatening deterioration of the following system(s) required my full and direct attention, intervention and personal management. The time I documented below is in addition to time spent performing reported procedures but includes the following listed in this critical care notation. Medical Decision Making - Medical Records Medical records reviewed: Yes: I reviewed the patient's medical records. - Jordy Inquiry Pt receiving controlled substance: No Vital Signs: 11/26/20 07:00 11/26/20 07:31 11/26/20 07:45 Temperature 98.4 F Temperature Source Oral Pulse Rate 74 63 Pulse Rate [Radial] 66 Respiratory Rate 16 12 15 Blood Pressure 122/74 111/69 Blood Pressure [Right Arm] 129/74 Blood Pressure Mean [Right Arm] 92 Blood Pressure Position [Right Arm] Sitting 02 Sat by Pulse Oximetry 98 96 97 Oxygen Delivery Method Room Air 11/26/20 07:52 11/26/20 08:30 11/26/20 09:00 Temperature Temperature Source Pulse Rate 66 59 L 62 Pulse Rate [Radial] Respiratory Rate 12 16 12 Blood Pressure 111/69 118/75 126/80 Blood Pressure [Right Arm] Blood Pressure Mean [Right Arm] Blood Pressure Position [Right Arm] 02 Sat by Pulse Oximetry 97 98 98 Oxygen Delivery Method - Lab Data Lab Results 11/26/20 07:10: WBC 9.0, RBC 4.40, Hgb 13.5, Hct 40.4, MCV 91.8, MCH 30.6, MCHC 33.4, RDW 13.2, Plt Count 244, MPV 8.4, Neut % (Auto) 55.8, Lymph % (Auto) 35.3, Meade % (Auto) 5.5, Eos % (Auto) 2.6, Baso % (Auto) 0.8, Neut # (Auto) 5.0, Lymph # (Auto) 3.2, Meade # (Auto) 0.5, Eos # (Auto) 0.2, Baso # (Auto) 0.1, ESR 23 H 11/26/20 07:10: Sodium 138, Potassium 3.8, Chloride 108 H, Carbon Dioxide 20 L, Anion Gap 13.8, BUN 12, Creatinine 0.70, Estimated Creat Clear 181, Estimated GFR 90, Est GFR ( Amer) 109, Glucose 117 H, Calcium 9.5, Total Bilirubin 0.4, Direct Bilirubin 0.0, Conjugated Bilirubin 0.0, Indirect Bilirubin 0.4, Unconjugated Bilirubin 0.4, AST 28, ALT 20, Alkaline Phosphatase 76, Troponin I < 0.01, C-Reactive Protein 8.7 H, Total Protein 7.3, Albumin 4.3, Amylase 48, Lipase 136, Procalcitonin 0.031 11/26/20 09:00: Troponin I < 0.01 Result diagrams: 11/26/20 07:10 11/26/20 07:10 Orders (Tests/Meds): ED MEDICATIONS Generic Name Dose Route Start Last Admin Trade Name Freq PRN Reason Stop Dose Admin Sodium Chloride 8 ml 11/26/20 07:07 11/26/20 07:17 Sodium Chloride 0.9% 10ml Vial IV 12/26/20 07:06 8 ml NEEDED PRN Administration dilute pepcid Discontinued Medications Generic Name Dose Route Start Last Admin Trade Name Freq PRN Reason Stop Dose Admin Famotidine 20 mg 11/26/20 07:07 11/26/20 07:17 Famotidine 20mg/2ml V
--- NOTE | 2020-11-26 08:56 | PC.NURSE ---
PT GIVEN PO CHALLENGE
[2020-11-26 10:07] LABS: Troponin I < 0.01 ng/ml (0.00-0.034)
== END 2020-11-26 10:54 | disposition home or self-care (01) ==
PROVIDERS: Emergency Provider Emergency Medicine; PCP Family Medicine
DX: R07.89 Other chest pain (principal); R09.89 Other specified symptoms and signs involving the circulatory and respiratory systems; I10 Essential (primary) hypertension; R01.1 Cardiac murmur, unspecified; F41.8 Other specified anxiety disorders; F17.210 Nicotine dependence, cigarettes, uncomplicated; Z79.899 Other long term (current) drug therapy
CPT/HCPCS: 71046; 74177; 80048; 80076; 82150; 83690; 84145; 84484; 85025; 85651; 86140; 93005; 96365; 96375; 99282; J2405; Q9967

== ENCOUNTER → 2020-12-08 13:41 | Outpatient (CLI) | payer OTHER, SELFPAY ==
--- NOTE | 2020-12-08 13:44 | XR_ITS ---
PROCEDURE: XR ANKLE RT MIN 3V CLINICAL INDICATION: RT ANKLE PAIN COMPARISON: No exams were available for comparison FINDINGS: No fracture or dislocation. No lytic or blastic change. There is normal mineralization. The joint spaces are well-preserved. No significant degenerative/arthritic changes. No erosive changes evident. Other findings:None. IMPRESSION: No acute findings. Dictated by: Madhu Ernandez MD 12/08/2020 17:55 Madhu Ernandez MD in [place] 12/08/2020 17:55
== END ==
PROVIDERS: PCP Physician Assistant; Visit Provider Physician Assistant
DX: M25.571 Pain in right ankle and joints of right foot (principal)
CPT/HCPCS: 73610

== ENCOUNTER → 2020-12-12 10:32 | Outpatient (CLI) | payer OTHER, SELFPAY ==
--- NOTE | 2020-12-12 10:34 | MM_ITS ---
PROCEDURE INFORMATION: Exam: MG Screening 3D Mammography Exam date and time: 12/12/2020 10:34 AM Age: 45 years old Clinical indication: Screening mammogram TECHNIQUE: Imaging protocol: Screening tomosynthesis and 2D mammography including computer-aided detection (CAD) when performed. COMPARISON: 1. MG MM DIG MAMM DX UNILAT RT CAD 05/09/2020 2:17 PM 2. MG MM DIG MAMM BI DX W/CAD 11/20/2019 10:14 AM 3. US BREAST RT COMPLETE 05/09/2020 2:49 PM 4. US BREAST RT COMPLETE 11/20/2019 11:13 AM FINDINGS: MAMMOGRAPHY: Breast composition: The breast tissue is heterogeneously dense, which may obscure small masses. Mass: None. Architectural distortion: No new or suspicious architectural distortion. Calcifications: No new or suspicious calcifications are present Asymmetric density: No new or suspicious asymmetric density is present Skin thickening: None. Axillary adenopathy: None. IMPRESSION: No mammographic evidence of malignancy. Recommend annual screening mammography unless otherwise clinically indicated. ASSESSMENT: BI-RADS category 1: Negative
== END ==
PROVIDERS: PCP Family Medicine; Visit Provider Nurse Practitioner Obstetrics & Gynecology
DX: Z12.31 Encounter for screening mammogram for malignant neoplasm of breast (principal)
CPT/HCPCS: 77063; 77067

== ENCOUNTER 2021-03-07 10:44 | Emergency (ER) | payer OTHER, SELFPAY ==
[2021-03-07 10:44] VITALS: BP 159/89; PULSE 77; RESP 18; TEMP 36.2; O2SAT 99; BMI 37.6
--- NOTE | 2021-03-07 11:39 | XR_ITS ---
PROCEDURE: XR CHEST 2V CLINICAL HISTORY: cough, fever COMPARISON: CR CXR CHEST(2 VIEWS-NOT PORTABLE) from 06/14/2017 CR XR CHEST 2V from 11/26/2020 FINDINGS: The cardiomediastinal silhouette and pulmonary vascularity are within normal limits. The lungs are clear without infiltrates, suspicious nodules, or pleural effusions. No acute bony abnormalities. IMPRESSION: No acute findings. Dictated by: Madhu Ernandez MD 03/07/2021 12:30 Madhu Ernandez MD in [place] 03/07/2021 12:30
--- NOTE | 2021-03-07 11:40 | HMH.EDUTC ---
[facility] [place] Disposition Clinical Impression: Viral syndrome, Exposure to COVID-19 virus, Bronchitis Disposition: Home, Self-Care Condition on Discharge: Good Instructions: DI for Acute Bronchitis, DI for COVID-19 (Suspected or Confirmed ), Preventing the Spread of Coronavirus Discharge Instructions Additional Instructions: Drink plenty of fluids. Take tylenol for pain or fever. Return if you begin to have difficulty breathing. Follow up with your regular doctor. GO TO THE ER FOR ANY WORSENING SYMPTOMS Prescriptions: dexAMETHasone [Dexamethasone] 6 mg PO DAILY 6 Days #6 tab Transmission Status: Received by [email or web address] Benzonatate [Tessalon Perle 100mg Cap] 100 mg PO TIDP PRN #30 cap PRN Reason: Cough Transmission Status: Received by [email or web address] Azithromycin [Z-Jim 250mg Tab*] 250 mg PO UD DOSE PK #6 tab Transmission Status: Received by [email or web address] Referrals: Yuni Xie MD [Primary Care Provider] - Forms: Work/School Release Time of Disposition: 12:19 Medical Decision Making - Medical Records Medical records reviewed: No: I reviewed the patient's medical records. - Jordy Inquiry Pt receiving controlled substance: No Vital Signs: 03/07/21 10:44 03/07/21 12:20 Temperature 97.2 F L 97.2 F L Temperature Source Oral Pulse Rate 77 Pulse Rate [Left Radial] 77 Respiratory Rate 18 18 Blood Pressure 159/89 H Blood Pressure [Right Arm] 159/89 H Blood Pressure Mean [Right Arm] 112 Blood Pressure Source [Right Arm] Automatic Cuff Blood Pressure Position [Right Arm] Sitting 02 Sat by Pulse Oximetry 99 Oxygen Delivery Method Room Air - Lab Data Lab results reviewed: Yes: I reviewed the patient's lab results. [facility] [place] HPI - General Stated complaint: covid test Time Seen by Provider: 03/07/21 10:45 Mode of Arrival: Ambulatory Source of Information: Patient Limitations: No Limitations Description of Symptoms (Recalled from Triage Doc. by RN): c/o fever, cough, soa, congested, sore throat and body aches. tested positive for covid Saturday HE Symptoms (Recalled from RN notes): No Resp Symptoms (Recalled from RN notes): Yes Skin Symptoms (Recalled from RN notes): No MS Symptoms (Recalled from RN notes): No Functional Status (Recalled from RN notes): wnl - History of Present Illness Provider Complaint: She states that she has had a dry cough, sinus pressure, nasal drainage, fever, chills and body aches that have progressively worsened for the past 2 days. Her currently has covid. - Related Data Home Medications Medication Instructions Recorded Confirmed sertraline 100 mg tablet 100 mg PO DAILY tab 11/26/18 06/29/20 nebivolol 5 mg tablet 5 mg PO BID tab 09/29/19 06/29/20 estradiol 0.5 mg/0.5 gram (0.1 %) 1 packet TRANSDERMA DAILY 12/28/20 12/28/20 transdermal gel packet Previous Rx's Medication Instructions Recorded Omeprazole [Omeprazole 20mg 20 mg PO DAILY #30 cap 11/26/20 Capsule] Azithromycin [Z-Jim 250mg Tab*] 250 mg PO UD DOSE PK #6 tab 03/07/21 Benzonatate [Tessalon Perle 100mg 100 mg PO TIDP PRN #30 cap 03/07/21 Cap] dexAMETHasone [Dexamethasone] 6 mg PO DAILY 6 Days #6 tab 03/07/21 Allergies Allergy/AdvReac Type Severity Reaction Status Date / Time No Known Drug Intolerances Allergy Unknown NA Verified 12/28/20 09:59 - Worker's Comp Is this a Worker's Comp case?: No [facility] History - Hepatitis A Screen Drug use history?: No High risk sexual behaviors?: No History of sexually transmitted infection?: No Currently employed?: No Childcare worker?: No Do you have indoor plumbing?: Yes Do you have electricity?: Yes Attestation statement:: This patient has been screened for Hepatitis A risk factors. I have reviewed the patient's past medical history: Yes Medical History: Reports:: Anxiety, Depression, Heart Murmur, Hypertension Denies:: Cancer, Diabetes Mellitus Type 1, Diabetes Mellitus Type 2
[2021-03-07 12:20] VITALS: BP 159/89; PULSE 77; RESP 18; TEMP 36.2; O2SAT 99
--- NOTE | 2021-03-07 16:37 | PC.NURSE ---
Pt aware of positive covid test
== END 2021-03-07 12:23 | disposition home or self-care (01) ==
PROVIDERS: Emergency Provider Nurse Practitioner Family; PCP Family Medicine
DX: U07.1 COVID-19 (principal); B34.9 Viral infection, unspecified; J20.9 Acute bronchitis, unspecified; F41.8 Other specified anxiety disorders; I10 Essential (primary) hypertension; F17.210 Nicotine dependence, cigarettes, uncomplicated
CPT/HCPCS: 71046; 99202; G0463; U0003

== ENCOUNTER 2021-03-19 10:20 | Emergency (ER) | payer OTHER, SELFPAY ==
[2021-03-19 11:05] VITALS: BP 123/78; PULSE 74; RESP 19; TEMP 36.7; O2SAT 96; BMI 36.9
--- NOTE | 2021-03-19 11:37 | HMH.EDUTC ---
[facility] [place] Clinical Impression: COVID-19 Disposition: Home, Self-Care Condition on Discharge: Good Instructions: DI for COVID-19 (Suspected or Confirmed ), COVID-19: Protecting Yourself When You're at High Risk, Preventing the Spread of Coronavirus Discharge Instructions Additional Instructions: covid swab was sent to lab, call later today for results. self isolate until test results are known to be negative No sign of a bacterial infection. Likely viral. Viruses can take 7-14 days to run their course. Nasal saline and bulb syringe or nose Leidy to remove nasal drainage to help with nasal congestion. Hard to eat, drink, sleep with nasal congestion so important to keep this cleaned out. Monitor temp. Tylenol or Motrin as needed for pain or fever Encourage fluids, water, Gatorade, Powerade, Pedialyte if infant/toddler/child Warm salt water gargles Warm fluids Sore throat lozenges Sleep elevated Humidifier/vaporizer Follow-up immediately for new or worsening symptoms or no noticeable improvement over the next 48-72 hours. Referrals: Yuni Xie MD [Primary Care Provider] - Time of Disposition: 11:40 Medical Decision Making - Jordy Inquiry Pt receiving controlled substance: No Vital Signs: 03/19/21 11:05 Temperature 98.0 F Temperature Source Oral Pulse Rate [Right Brachial] 74 Respiratory Rate 19 Blood Pressure [Right Arm] 123/78 Blood Pressure Mean [Right Arm] 93 Blood Pressure Source [Right Arm] Automatic Cuff Blood Pressure Position [Right Arm] Sitting 02 Sat by Pulse Oximetry 96 Oxygen Delivery Method Room Air Orders (Tests/Meds): ORDERS Category Date Time Status Covid-19 Nasal PCR ([facility]) Routine Lab 03/19/21 11:13 Ordered [facility] [place] - General Chief complaint: [facility]gent [facility] Stated complaint: covid test Time Seen by Provider: 03/19/21 11:37 Mode of Arrival: Ambulatory Source of Information: Patient Limitations: No Limitations Description of Symptoms (Recalled from Triage Doc. by RN): PATIENT TESTED POSITIVE ON 03/07, WANTS RE-TESTED HEENT Symptoms (Recalled from RN notes): No Resp Symptoms (Recalled from RN notes): No Skin Symptoms (Recalled from RN notes): No MS Symptoms (Recalled from RN notes): No Functional Status (Recalled from RN notes): WNL - History of Present Illness Provider Complaint: 45 yr old male presents for covid test. pt tested post on 03/07 and wants retested. - Related Data Home Medications Medication Instructions Recorded Confirmed sertraline 100 mg tablet 100 mg PO DAILY tab 11/26/18 06/29/20 nebivolol 5 mg tablet 5 mg PO BID tab 09/29/19 06/29/20 estradiol 0.5 mg/0.5 gram (0.1 %) 1 packet TRANSDERMA DAILY 12/28/20 12/28/20 transdermal gel packet Previous Rx's Medication Instructions Recorded Omeprazole [Omeprazole 20mg 20 mg PO DAILY #30 cap 11/26/20 Capsule] Azithromycin [Z-Jim 250mg Tab*] 250 mg PO UD DOSE PK #6 tab 03/07/21 Benzonatate [Tessalon Perle 100mg 100 mg PO TIDP PRN #30 cap 03/07/21 Cap] dexAMETHasone [Dexamethasone] 6 mg PO DAILY 6 Days #6 tab 03/07/21 Allergies Allergy/AdvReac Type Severity Reaction Status Date / Time No Known Drug Intolerances Allergy Unknown NA Verified 12/28/20 09:59 - Worker's Comp Is this a Worker's Comp case?: No [facility] History - Hepatitis A Screen Drug use history?: No High risk sexual behaviors?: No History of sexually transmitted infection?: No Currently employed?: No Childcare worker?: No Do you have indoor plumbing?: Yes Do you have electricity?: Yes Attestation statement:: This patient has been screened for Hepatitis A risk factors. I have reviewed the patient's past medical history: Yes Medical History: Reports:: Anxiety, Depression, Heart Murmur, Hypertension Denies:: Cancer, Diabetes Mellitus Type 1, Diabetes Mellitus Type 2, Internal Pacemaker, MRSA, Seizures Other Medical History: Reports: Thyroid Disease, Other. Denies: Blood Transfusion [place]
[2021-03-19 11:46] VITALS: BP 123/78; PULSE 74; RESP 19; TEMP 36.7; O2SAT 96
--- NOTE | 2021-03-19 21:35 | PC.NURSE ---
CALLED PT ABOUT COVID TEST RESULTS
== END 2021-03-19 11:53 | disposition home or self-care (01) ==
PROVIDERS: Emergency Provider Nurse Practitioner Family; PCP Family Medicine
DX: U07.1 COVID-19 (principal); I10 Essential (primary) hypertension; F41.8 Other specified anxiety disorders; Z79.899 Other long term (current) drug therapy
CPT/HCPCS: 99202; G0463; U0003

== ENCOUNTER 2021-04-25 17:13 | Emergency (ER) | payer OTHER, SELFPAY ==
[2021-04-25 17:14] VITALS: BP 132/84; PULSE 64; RESP 20; TEMP 36.7; O2SAT 97; BMI 37.6
--- NOTE | 2021-04-25 17:20 | XR_ITS ---
PROCEDURE INFORMATION: Exam: XR Chest Exam date and time: 04/25/2021 5:20 PM Age: 45 years old Clinical indication: Chest pressure; Patient HX: Chest pain; Obesity; Non-smoker; Additional info: Cp TECHNIQUE: Imaging protocol: XR of the chest. Views: 1 view. COMPARISON: CR XR CHEST 2V 03/07/2021 11:50 AM FINDINGS: Lungs: Unremarkable. No consolidation. Pleural spaces: Unremarkable. No pleural effusion. No pneumothorax. Heart/Mediastinum: Unremarkable. No cardiomegaly. Bones/joints: Unremarkable. No evidence of acute displaced fracture. IMPRESSION: No acute findings.
--- NOTE | 2021-04-25 17:20 | ECG_ITS ---
APPROVED REPORT Exam: Resting ECG HR:63 bpm ECG Measurements Heart Rate 63 AXES FL 130 P 0 QRSd 82 QRS 4 QT 406 T 76 QTc 415 Conclusion Normal sinus rhythm Possible Anterior infarct, age undetermined Abnormal ECG Electronically signed by : Ayan Fairchild MD 04/26/2021 07:29:26
[2021-04-25 17:21] VITALS: BMI 32.5
--- NOTE | 2021-04-25 17:21 | HMH.EDCP ---
ED Disposition Clinical Impression: Elevated lipase Abdominal pain Qualifiers: Abdominal location: epigastric Qualified Code(s): R10.13 - Epigastric pain Nausea and vomiting Qualifiers: Vomiting type: unspecified Vomiting Intractability: non-intractable Qualified Code(s): R11.2 - Nausea with vomiting, unspecified Disposition: Home, Self-Care Condition on Discharge: Good Additional Instructions: Return to the emergency department for worsening pain, nausea and vomiting. Prescriptions: Ondansetron [Zofran 4mg ODT] 4 mg PO TIDP PRN #10 tab PRN Reason: Nausea Transmission Status: Pending to [id number] Referrals: Provider,Referral, [Referring] - 3 days Time of Disposition: 19:22 - Critical Care Critical Care Time: No Attestation: On , the high probability of a clinically significant, sudden or life threatening deterioration of the following system(s) required my full and direct attention, intervention and personal management. The time I documented below is in addition to time spent performing reported procedures but includes the following listed in this critical care notation. Medical Decision Making - Medical Records Medical records reviewed: Yes: I reviewed the patient's medical records. - Jordy Inquiry Pt receiving controlled substance: No Vital Signs: 04/25/21 17:14 Temperature 98.1 F Temperature Source Oral Pulse Rate [Left Radial] 64 Respiratory Rate 20 Blood Pressure [Right Arm] 132/84 Blood Pressure Mean [Right Arm] 100 Blood Pressure Source [Right Arm] Automatic Cuff Blood Pressure Position [Right Arm] Sitting 02 Sat by Pulse Oximetry 97 Oxygen Delivery Method Room Air - Lab Data Lab Results 04/25/21 17:15: WBC 12.3 H, RBC 4.39, Hgb 13.8, Hct 41.7, MCV 95.1, MCH 31.5 H, MCHC 33.1, RDW 13.0, Plt Count 285, MPV 8.9, Neut % (Auto) 70.0, Lymph % (Auto) 21.1, [place] % (Auto) 4.8, Eos % (Auto) 3.2, Baso % (Auto) 0.8, Neut # (Auto) 8.6 H, Lymph # (Auto) 2.6, [place] # (Auto) 0.6, Eos # (Auto) 0.4, Baso # (Auto) 0.1 04/25/21 17:15: Sodium 141, Potassium 4.2, Chloride 107, Carbon Dioxide 23, Anion Gap 15.2 H, BUN 12, Creatinine 0.70, Estimated Creat Clear 157, Estimated GFR 90, Est GFR ( Amer) 109, Glucose 127 H, Calcium 9.6, Total Bilirubin 0.5, AST 59 H, ALT 34, Alkaline Phosphatase 85, Troponin I < 0.01, Total Protein 7.5, Albumin 4.3, Globulin 3.2, Albumin/Globulin Ratio 1.3 04/25/21 17:15: Lipase 375 H Result diagrams: 04/25/21 17:15 04/25/21 17:15 Orders (Tests/Meds): ED MEDICATIONS Generic Name Dose Route Start Last Admin Trade Name Freq PRN Reason Stop Dose Admin Lactated Ringer's 1,000 mls @ 999 mls/hr 04/25/21 19:00 04/25/21 18:59 Lactated Ringer's 1000 Ml Bag IV 04/25/21 20:00 999 mls/hr .Q1H1M NBA Administration Nitroglycerin 0.4 mg 04/25/21 17:20 Nitroglycerin 0.4mg Sl Tablet SL 04/26/21 17:20 Q5MINP PRN Chest Pain Discontinued Medications Generic Name Dose Route Start Last Admin Trade Name Freq PRN Reason Stop Dose Admin Aspirin 324 mg 04/25/21 17:20 04/25/21 17:38 Aspirin 81mg Chewable Tablet PO 04/25/21 17:21 324 mg ONCE ONE Administration Belladonna Alkaloids 60 ml 04/25/21 17:31 04/25/21 17:38 Gi Cocktail 60ml Udc PO 04/25/21 17:32 60 ml ONCE ONE Administration ORDERS Category Date Time Status Troponin I Q3H Lab 04/25/21 20:30 Ordered Troponin I Q3H Lab 04/25/21 23:30 Ordered - ECG Data Tracing #1 I reviewed this ECG and interpreted as documented below: 63 bpm, normal sinus rhythm, no ST elevation or depression, no ectopy, normal intervals. ECG initial impression date: 04/25/21 ECG initial impression time: 17:15 - DEBBY Score for Non-Stemi Age of Patient: 40-49 years old Heart Rate: 50-69 bpm Systolic Blood Pressure: 120-139 mmhg Medical Decision Narrative: 45yo F evaluated for epigastric pain radiating into her chest. Differential diagnosis includes but not li
[2021-04-25 17:33] LABS: Basophils # 0.1 K/mm3 (0-0.2); Basophils % 0.8 % (0.1-2.0); Eosinophils # 0.4 K/mm3 (0.0-0.4); Eosinophils % 3.2 % (0.1-12.0); Hematocrit 41.7 % (37.0-47.0); Hemoglobin 13.8 g/dL (12.2-16.2); Lymphocytes # 2.6 K/mm3 (0.7-4.5); Lymphocytes % 21.1 % (10-50); Mean Corpuscular HGB Conc 33.1 g/dL (31.8-35.4); Mean Corpuscular Hemoglobin 31.5 pg (27.0-31.2); Mean Corpuscular Volume 95.1 fl (81-99); Mean Platelet Volume 8.9 fl (7.4-10.4); Monocytes # 0.6 K/mm3 (0.1-1.0); Monocytes % 4.8 % (1.7-9.3); Neutrophils # 8.6 K/mm3 (1.8-7.8); Platelet Count 285 K/mm3 (142-424); Red Blood Count 4.39 M/mm3 (4.20-5.40); White Blood Count 12.3 K/mm3 (4.8-10.8)
[2021-04-25 17:34] LABS: Chloride 107 mmol/L (98-107); Sodium 141 mmol/L (136-145)
[2021-04-25 17:35] LABS: Potassium 4.2 mmoL/L (3.5-5.1)
[2021-04-25 17:37] LABS: Alanine Aminotransferase 34 U/L (12-78); Albumin Level 4.3 g/dl (3.5-5.0); Albumin/Globulin Ratio 1.3 (1.1-1.8); Alkaline Phosphatase 85 U/L (38-126); Anion Gap 15.2 mEq/L (5-15); Aspartate Amino Transferase 59 U/L (14-36); Bilirubin,Total 0.5 mg/dl (0.2-1.3); Blood Urea Nitrogen 12 mg/dl (7-17); Carbon Dioxide 23 mmol/L (22.0-30.0); Creatinine Clearance Estimated 157 mL/min (50-200); Estimated Glomerular Filt Rate 90 ml/min (>60); GFR (African American) 109 ML/MIN (>60); Globulin 3.2 g/dL (1.3-3.2); Total Protein,Serum 7.5 g/dl (6.3-8.2)
[2021-04-25 17:38] LABS: Calcium 9.6 mg/dl (8.4-10.2); Glucose 127 mg/dl (74-100)
[2021-04-25 17:57] LABS: Troponin I < 0.01 ng/ml (0.00-0.034)
[2021-04-25 18:21] LABS: Lipase 375 U/L (23-300)
--- NOTE | 2021-04-25 18:29 | CT_ITS ---
PROCEDURE INFORMATION: Exam: CT Abdomen And Pelvis With Contrast Exam date and time: 04/25/2021 6:29 PM Age: 45 years old Clinical indication: Abdominal pain; Acute; Prior surgery; Surgery date: 6+ months; Surgery type: Gb, hysterectomy; Additional info: Epigastric pain, elevated lipase TECHNIQUE: Imaging protocol: Computed tomography of the abdomen and pelvis with contrast. Radiation optimization: All CT scans at this facility use at least one of these dose optimization techniques: automated exposure control; mA and/or kV adjustment per patient size (includes targeted exams where dose is matched to clinical indication); or iterative reconstruction. Contrast material: ISOVUE; Contrast volume: 75 ml; Contrast route: IV; COMPARISON: CT ABDOMEN PELVIS W CON 11/26/2020 8:01 AM FINDINGS: Lungs: Scattered linear opacities in the visualized lung bases likely represent subsegmental atelectasis and/or scarring. Liver: No evidence of focal liver lesion on this single phase exam. Gallbladder and bile ducts: There is no biliary ductal dilatation status post cholecystectomy. Pancreas: No evidence of focal lesion or ductal dilatation. Spleen: No splenomegaly. Adrenal glands: No adrenal nodule. Kidneys and ureters: No hydronephrosis, calculus or enhancing lesion. Stomach and bowel: No distention or wall thickening. Appendix: The appendix is normal. Intraperitoneal space: No free air or fluid. No focal fluid collection. Vasculature: The abdominal aorta is normal in caliber. Lymph nodes: No lymphadenopathy. Urinary bladder: Unremarkable as visualized. Reproductive: Status post hysterectomy. The adnexa are unremarkable. Bones/joints: No acute fracture. Soft tissues: There is a small fat containing umbilical hernia. IMPRESSION: No acute inflammatory process in the abdomen or pelvis.
[2021-04-25 19:46] VITALS: BP 129/81; PULSE 67; RESP 20; TEMP 36.7; O2SAT 97
== END 2021-04-25 19:48 | disposition home or self-care (01) ==
PROVIDERS: Emergency Provider Family Medicine; PCP Family Medicine
DX: R10.13 Epigastric pain (principal); R11.2 Nausea with vomiting, unspecified; I10 Essential (primary) hypertension; F41.8 Other specified anxiety disorders
CPT/HCPCS: 71045; 74177; 80053; 83690; 84484; 85025; 93005; 96365; 99283

== ENCOUNTER → 2021-05-05 08:18 | Outpatient (CLI) | payer OTHER, SELFPAY ==
--- NOTE | 2021-05-05 08:22 | US_ITS ---
PROCEDURE: US ABDOMEN LIMITED CLINICAL INDICATION: ELEVATED LFT Right upper quadrant pain COMPARISON: No exams were available for comparison FINDINGS: PANCREAS: Unremarkable. No obvious mass or abnormal fluid collection. No ductal dilatation LIVER: No focal liver lesions demonstrated. Homogeneous echogenicity. No intrahepatic biliary ductal dilatation evident. There is appropriate direction of blood flow within a non dilated portal vein RIGHT KIDNEY: Unremarkable. Normal size and echogenicity. No hydronephrosis GALLBLADDER: Prior cholecystectomy. Common bile duct normal at 3 mm. IMPRESSION: Status post cholecystectomy otherwise negative right upper quadrant ultrasound Dictated by: Madhu Ernandez MD 05/05/2021 13:29 Madhu Ernandez MD in [place] 05/05/2021 13:29
[2021-05-05 11:20] LABS: Vitamin B12 837 pg/mL (239-931)
[2021-05-06 09:19] LABS: Hep A Ab, IgM Negative (Negative); Hepatitis B Core Antibody IgM Negative (Negative); Hepatitis B Surface Antigen Negative (Negative); Hepatitis C Antibody <0.1 s/co ratio (0.0-0.9)
== END ==
LOC: RAD 08:19
PROVIDERS: PCP Family Medicine; Visit Provider Physician Assistant
DX: R79.89 Other specified abnormal findings of blood chemistry (principal); R20.2 Paresthesia of skin
CPT/HCPCS: 36415; 76705; 80074; 82607

== ENCOUNTER → 2021-05-22 08:48 | Outpatient (CLI) | payer OTHER, SELFPAY ==
--- NOTE | 2021-05-22 08:57 | FL_ITS ---
PROCEDURE: FL SMALL BOWEL FOLLOW THROUGH CLINICAL INDICATION: ALTERED BOWEL FUNCTION, CONSTIPATION, BLOATING SYMPTOM COMPARISON: No exams were available for comparison FINDINGS: This rf microwave engineer exam demonstrates surgical clips in the pelvic region and right upper quadrant. The small bowel has an unremarkable appearance. No obstructing lesions, bowel distension, or masses are evident. Spot views of the terminal ileum are unremarkable. There is normal transit time. Fluoroscopy time: 57 seconds IMPRESSION: Negative small-bowel follow-through Dictated by: Madhu Ernandez MD 05/23/2021 07:33 Madhu Ernandez MD in [place] 05/23/2021 07:33
[2021-05-22 12:28] LABS: Alanine Aminotransferase 16 U/L (12-78); Albumin Level 3.9 g/dl (3.5-5.0); Albumin/Globulin Ratio 1.3 (1.1-1.8); Alkaline Phosphatase 64 U/L (38-126); Anion Gap 10.3 mEq/L (5-15); Aspartate Amino Transferase 25 U/L (14-36); Bilirubin,Total 0.2 mg/dl (0.2-1.3); Blood Urea Nitrogen 7 mg/dl (7-17); Calcium 9.2 mg/dl (8.4-10.2); Carbon Dioxide 25 mmol/L (22.0-30.0); Chloride 108 mmol/L (98-107); Estimated Glomerular Filt Rate 107 ml/min (>60); GFR (African American) 130 ML/MIN (>60); Globulin 2.9 g/dL (1.3-3.2); Glucose 99 mg/dl (74-100); Lipase 162 U/L (23-300); Potassium 4.3 mmoL/L (3.5-5.1); Sodium 139 mmol/L (136-145); Total Protein,Serum 6.8 g/dl (6.3-8.2)
[2021-05-23 16:12] LABS: Deamidated Gliadin Abs, IgA 4 units (0-19); Deamidated Gliadin Abs, IgG 1 units (0-19); Endomysial IgA Antibody Negative (Negative); Tissue Transglutaminase IgA Ab <2 U/mL (0-3); Tissue Transglutaminase IgG Ab <2 U/mL (0-5)
[2021-05-24 06:24] LABS: Reticulin IgA Antibody Negative titer (Neg:<1:2.5)
[2021-05-24 16:12] LABS: Saccharomyces cerevisiae, IgA <20.0 Units (0.0-24.9); Saccharomyces cerevisiae, IgG <20.0 Units (0.0-24.9)
== END ==
PROVIDERS: Nurse Practitioner Family; PCP Family Medicine; Visit Provider Internal Medicine Gastroenterology
DX: R10.13 Epigastric pain (principal); R10.11 Right upper quadrant pain; R74.8 Abnormal levels of other serum enzymes; R94.5 Abnormal results of liver function studies; R19.4 Change in bowel habit; R14.0 Abdominal distension (gaseous); R07.81 Pleurodynia
CPT/HCPCS: 36415; 74250; 80053; 83516; 83690; 86255; 86256; 86671

== ENCOUNTER → 2021-08-10 10:14 | Outpatient (CLI) | payer OTHER, SELFPAY | PROVIDERS: PCP Family Medicine; Visit Provider Physician Assistant | DX: R07.9 Chest pain, unspecified (principal); I35.0 Nonrheumatic aortic (valve) stenosis; I35.1 Nonrheumatic aortic (valve) insufficiency; I10 Essential (primary) hypertension; I51.89 Other ill-defined heart diseases; E78.2 Mixed hyperlipidemia | CPT/HCPCS: 93306 ==

== ENCOUNTER 2021-09-12 12:13 | Emergency (ER) | payer OTHER, SELFPAY ==
[2021-09-12 13:00] VITALS: BP 151/92; PULSE 78; RESP 18; TEMP 36.9; O2SAT 100; BMI 37.4
--- NOTE | 2021-09-12 14:32 | HMH.EDUTC ---
[facility] [place] Clinical Impression: URI (upper respiratory infection) Qualifiers: URI type: unspecified URI Qualified Code(s): J06.9 - Acute upper respiratory infection, unspecified Disposition: Home, Self-Care Condition on Discharge: Good Instructions: DI for Strep Throat, Strep Throat, Sinusitis Additional Instructions: *Monitor Temp, Over the counter Motrin or Tylenol as directed/as needed Tylenol every 4 hours and Motrin every 6 hours (as long as your family doctor has told you that you can take it) for fever or pain. and straight to ER if unable to lower temp less than 101.0 after medication given *Warm salt water gargles may help to soothe the throat *Throat Lozenges *Warm fluids like tea with honey may help to soothe the throat *Sleep elevated *Humidifier/Vaporizer Your throat swab was sent for culture. Those results are typically sent to your primary care. Be sure to follow up in 2-3 days with your family doctor/primary care physician if no improvement so they can review those result and treat if necessary. If you don?t have a primary care doctor, I recommend you get one but in the mean time, you will have to return to a walk in clinic Follow up IMMEDIATELY for new or worsening symptoms or no Noticeable improvement over the next 48-72 hours. 911 for difficulty breathing or swallowing You were tested for today for COVID19 your test result should be back in the next 24-72 hours, you may check your results on the [facility] portal if you have trouble logging on you may call support to help you If you are positive someone from the hospital will be calling you Make sure to take your Vitamins Vit. C Vit D and Zinc if you can take them Prescriptions: Amoxicillin [Amoxicillin 875MG Tab] 875 mg PO Q12H #20 tab Transmission Status: Pending to [id number] Referrals: Zunilda Ross PA [Primary Care Provider] - As needed Forms: Work/School Release Medical Decision Making - Jordy Inquiry Pt receiving controlled substance: No Jordy was queried for this patient: No Vital Signs: 09/12/21 13:00 Temperature 98.4 F Temperature Source Oral Pulse Rate [Right Brachial] 78 Respiratory Rate 18 Blood Pressure [Right Arm] 151/92 H Blood Pressure Mean [Right Arm] 111 Blood Pressure Source [Right Arm] Automatic Cuff Blood Pressure Position [Right Arm] Sitting 02 Sat by Pulse Oximetry 100 Oxygen Delivery Method Room Air - Lab Data Lab results reviewed: Yes: I reviewed the patient's lab results. Lab Results 09/12/21 14:18: Group A Strep Rapid Negative Orders (Tests/Meds): ORDERS Category Date Time Status Strep Screen Confirmation Stat Micro 09/12/21 14:18 Received [facility] [place] - General Stated complaint: sore throat, drainage Time Seen by Provider: 09/12/21 14:32 Mode of Arrival: Ambulatory Source of Information: Patient Limitations: No Limitations Description of Symptoms (Recalled from Triage Doc. by RN): PATIENT C/O SORE THROAT AND SINUS DRAINAGE X 3 DAYS HEENT Symptoms (Recalled from RN notes): Yes Resp Symptoms (Recalled from RN notes): No Skin Symptoms (Recalled from RN notes): No MS Symptoms (Recalled from RN notes): No Functional Status (Recalled from RN notes): WNL - History of Present Illness Provider Complaint: Patient state that she has been having sore throat and sinus congestion and pressure for about 3 days State today her throat was hurting worse so she came in worried that she may have strep throat - Related Data Home Medications Medication Instructions Recorded Confirmed sertraline 100 mg tablet 100 mg PO DAILY tab 11/26/18 07/31/21 nebivolol 5 mg tablet 5 mg PO BID tab 09/29/19 07/31/21 bupropion HCl 75 mg tablet 75 mg PO DAILY tab 07/31/21 07/31/21 paroxetine HCl 40 mg tablet 40 mg PO DAILY tab 07/31/21 07/31/21 Previous Rx's Medication Instructions Recorded Omeprazole [Omeprazole 20mg 20 mg PO DAILY #30 cap 11/26/20 Capsule] Amoxicillin [
[2021-09-12 14:48] LABS: Strep Scrn Group A (Rapid) Negative (Negative)
[2021-09-12 15:19] VITALS: BP 151/92; PULSE 78; RESP 18; TEMP 36.9; O2SAT 100
== END 2021-09-12 15:23 | disposition home or self-care (01) ==
PROVIDERS: Emergency Provider Nurse Practitioner; PCP Physician Assistant
DX: J06.9 Acute upper respiratory infection, unspecified (principal); Z20.822 Contact with and (suspected) exposure to COVID-19; I10 Essential (primary) hypertension; F32.A Depression, unspecified; F41.9 Anxiety disorder, unspecified
CPT/HCPCS: 87430; 99203; C9803; G0463; U0003; U0005

== ENCOUNTER → 2022-05-18 14:39 | Outpatient (CLI) | payer OTHER, SELFPAY ==
[2022-05-18 15:31] LABS: Basophils # 0.1 K/mm3 (0-0.2); Basophils % 1.1 % (0.1-2.0); Eosinophils # 0.2 K/mm3 (0.0-0.4); Eosinophils % 2.7 % (0.1-12.0); Hematocrit 38.1 % (37.0-47.0); Hemoglobin 12.8 g/dL (12.2-16.2); Lymphocytes # 2.8 K/mm3 (0.7-4.5); Lymphocytes % 37.9 % (10-50); Mean Corpuscular HGB Conc 33.7 g/dL (31.8-35.4); Mean Corpuscular Hemoglobin 32.1 pg (27.0-31.2); Mean Corpuscular Volume 95.2 fl (81-99); Mean Platelet Volume 9.1 fl (7.4-10.4); Monocytes # 0.4 K/mm3 (0.1-1.0); Monocytes % 5.4 % (1.7-9.3); Neutrophils # 3.9 K/mm3 (1.8-7.8); Platelet Count 254 K/mm3 (142-424); White Blood Count 7.4 K/mm3 (4.8-10.8)
[2022-05-18 16:28] LABS: Chloride 106 mmol/L (98-107); Potassium 3.6 mmoL/L (3.5-5.1); Sodium 142 mmol/L (136-145)
[2022-05-18 16:30] LABS: Alanine Aminotransferase 73 U/L (12-78); Aspartate Amino Transferase 45 U/L (14-36); Blood Urea Nitrogen 6 mg/dl (7-17); Estimated Glomerular Filt Rate 107 ml/min (>60); GFR (African American) 129 ML/MIN (>60)
[2022-05-18 16:31] LABS: Albumin Level 3.9 g/dl (3.5-5.0); Albumin/Globulin Ratio 1.6 (1.1-1.8); Alkaline Phosphatase 123 U/L (38-126); Anion Gap 13.6 mEq/L (5-15); Calcium 8.5 mg/dl (8.4-10.2); Carbon Dioxide 26 mmol/L (22.0-30.0); Globulin 2.4 g/dL (1.3-3.2); Glucose 107 mg/dl (74-100); Total Protein,Serum 6.3 g/dl (6.3-8.2)
[2022-05-18 16:37] LABS: Bilirubin,Total < 0.1 mg/dl (0.2-1.3)
== END ==
PROVIDERS: PCP Family Medicine; Visit Provider Physician Assistant
DX: Z20.822 Contact with and (suspected) exposure to COVID-19 (principal)
CPT/HCPCS: 36415; 80053; 85025; C9803; U0003; U0005

== ENCOUNTER → 2022-05-28 07:30 | Outpatient (CLI) | payer OTHER, SELFPAY ==
--- NOTE | 2022-05-28 07:37 | CT_ITS ---
FINAL REPORT CLINICAL HISTORY: ABD PAIN,ELEVATED LFT. Right sided pain. nausea x 3 weeks. COMPARISON: April 25, 2021 FINDINGS: Axial CT images of the abdomen and pelvis were obtained without intravenous contrast. Coronal reformatted images were also obtained.This study was performed with techniques to keep radiation doses as low as reasonably achievable (ALARA). Individualized dose reduction techniques using automated exposure control or adjustment of mA and/or kV according to the patient's size were employed. Abdomen: The lung bases are clear. There is no evidence of renal stone or hydronephrosis. There are postoperative changes from cholecystectomy. The liver, spleen and pancreas have an unremarkable, unenhanced appearance. No inflammatory process is identified. There are multiple new enlarged mesenteric lymph nodes measuring up to 16 mm. There are several enlarged right lower quadrant mesenteric lymph nodes seen that are also new and may be reactive or neoplastic. Pelvis: Images of the pelvis reveal no evidence of ureteral dilation or ureteral stone.No mass or abnormal fluid collection is identified. The appendix is normal. There are postoperative changes from hysterectomy. IMPRESSION: No renal or ureteral stone, or hydronephrosis. Multiple new enlarged mesenteric lymph nodes measuring up to 16 mm with several enlarged right lower quadrant mesenteric lymph nodes. May be reactive or neoplastic. Reviewed, Interpreted and Dictated by Stefan Spain III, MD Transcribed by Melba Cochran Authenticated and [facility]
== END ==
LOC: RAD 07:31
PROVIDERS: PCP Family Medicine; Visit Provider Physician Assistant
DX: R10.11 Right upper quadrant pain (principal); R10.13 Epigastric pain; K52.9 Noninfective gastroenteritis and colitis, unspecified; R79.89 Other specified abnormal findings of blood chemistry
CPT/HCPCS: 74176

== ENCOUNTER → 2022-06-28 09:05 | Outpatient (CLI) | payer OTHER, SELFPAY ==
[2022-06-28 09:29] LABS: MANUAL DIFFERENTIAL MANUAL DIFFERENTIAL (MANUAL DIFF)
[2022-06-28 10:02] LABS: Basophils # 0.1 K/mm3 (0-0.2); Basophils % 1.2 % (0.1-2.0); Eosinophils # 0.2 K/mm3 (0.0-0.4); Eosinophils % 1.8 % (0.1-12.0); Hematocrit 43.5 % (37.0-47.0); Hemoglobin 13.9 g/dL (12.2-16.2); Lymphocytes # 2.9 K/mm3 (0.7-4.5); Lymphocytes % 31.5 % (10-50); Mean Corpuscular HGB Conc 32.1 g/dL (31.8-35.4); Mean Corpuscular Hemoglobin 30.4 pg (27.0-31.2); Mean Corpuscular Volume 94.8 fl (81-99); Mean Platelet Volume 9.5 fl (7.4-10.4); Monocytes # 0.5 K/mm3 (0.1-1.0); Monocytes % 5.6 % (1.7-9.3); Neutrophils # 5.4 K/mm3 (1.8-7.8); Neutrophils % 59.9 % (37.0-80.0); Platelet Count 359 K/mm3 (142-424); Red Blood Count 4.58 M/mm3 (4.20-5.40); Red Cell Distribution Width 13.9 % (11.5-17.5)
[2022-06-28 10:29] LABS: Anion Gap 15.8 mEq/L (5-15); Blood Urea Nitrogen 12 mg/dl (7-17); Calcium 10.1 mg/dl (8.4-10.2); Carbon Dioxide 24 mmol/L (22.0-30.0); Chloride 105 mmol/L (98-107); Estimated Glomerular Filt Rate 67 ml/min (>60); GFR (African American) 81 ML/MIN (>60); Glucose 101 mg/dl (74-100); Potassium 4.8 mmoL/L (3.5-5.1); Sodium 140 mmol/L (136-145)
[2022-06-28 10:47] LABS: Free Thyroxine Index 2.2 ug/dL (5.93-13.13); T4 (Thyroxine) 6.8 ug/dl (5.53-11.0); Triiodothryronine (T3) Uptake 33 % (23.5-40.5)
[2022-06-28 11:01] LABS: Thyroid Stimulating Hormone 2.35 uIU/mL (0.465-4.68)
[2022-06-28 11:45] LABS: Eosinophils % 4 % (0-3); Lymphocytes % 31 % (10-50); Monocytes % 2 % (2-9); Neutrophils % 62 % (42-76); Platelet Estimate Normal; RBC Morphology Normal; Total Cells Counted 100
== END ==
PROVIDERS: PCP Family Medicine; Visit Provider Physician Assistant
DX: R00.2 Palpitations (principal); E78.2 Mixed hyperlipidemia; I10 Essential (primary) hypertension; I35.0 Nonrheumatic aortic (valve) stenosis; I35.1 Nonrheumatic aortic (valve) insufficiency; I51.89 Other ill-defined heart diseases; K21.9 Gastro-esophageal reflux disease without esophagitis; Z86.39 Personal history of other endocrine, nutritional and metabolic disease; Z86.79 Personal history of other diseases of the circulatory system
CPT/HCPCS: 36415; 80048; 84436; 84443; 84479; 85007; 85014; 85018; 85048; 85049; 93225

== ENCOUNTER → 2022-07-09 11:19 | Outpatient (CLI) | payer OTHER, SELFPAY ==
--- NOTE | 2022-07-09 11:24 | CA_ITS ---
APPROVED REPORT EXAM: Comprehensive 2D, Doppler, and color-flow Echocardiogram Dye House Helper: Liberty Florentino RVT Ht: 5 ft 9 in Wt: 253lbs BSA: 2.28 BP: 136/88 mmHg Indications: MOD AI,PALPS, MILD ,HTN,MURMUR,HLD 2D Dimensions LVOT 2.01 cm (M/F) 1.5-2.5 LA Volume 46.60 mL LA Volume Index 20.43 mL/m2 (M/F) 16-34 M-Mode Dimensions RVDd 3.21 cm (0.9-2.6) LA Diam 3.86 cm (1.9-4.0) LVDd 5.77 cm (3.5-5.7) Ao Diam 3.02 cm (2.0-3.7) LVDs 3.66 cm (3.5-5.7) IVSd 0.79 cm (0.6-1.1) PWd 0.79 cm (0.6-1.1) EF (Teich) 65.60% FS 36.60% EDV (Teich) 164.60 mL ESV (Teich) 56.60 mL LV Diastology E Decel Time 313.00 (160-240 msec) E/A Ratio 1.5 MED E' 3.20 (< 7 cm/sec) E'/MED E' Ratio 30.34 (>14) LAT E' 4.30 (<10 cm/sec) E/LAT E' Ratio 22.58 (>14) Aortic Valve LVOT Max 100.00 (70-110 cm/s) LVOT VTI 23.20 cm AoV Peak Tonio. 258.00 (50-130 cm/s) AI PHT 825.00 ms AO Peak GR. 26.60 mmHg AO Mean GR. 15.20 (<5 mmHg) AO VTI 62.63 (18-25 cm) KENDELL (VTI) 1.18 (2.5-4.5 cm2) Mitral Valve MV E Max Tonio. 97.00 (40-130 cm/s) MV A Velocity 63.00 (40-130 cm/s) E/A Ratio 1.53 MV Decel. Time 313.00 (160-240 ms) MV PHT 92.00 ms Pulmonary Valve PV Peak Velocity 78.00 (50-150 cm/s) Left Ventricle Left atrium is mildly enlarged, left ventricle is normal size, estimated ejection fraction 55% with no regional wall motion abnormality, diastolic parameters are inconclusive in the study. Right Ventricle Right atrium and right ventricle are normal size and contractility. Aortic Valve Aortic valve is thickened and calcified morphology is not well visualized, mean gradient across aortic valve is 17 mmHg, represents mild aortic stenosis, there is moderate aortic insufficiency. Mitral Valve Mitral valve leaflets are minimally thickened, there is mild mitral regurgitation. Tricuspid Valve Tricuspid valve grossly normal, there is mild tricuspid regurgitation, tricuspid regurgitation jet velocity is inadequate for calculation of the right ventricular systolic pressure. Pulmonic Valve Pulmonic valve is poorly visualized. Great Vessels Aortic root is normal size. Inferior vena cava is poorly visualized. Pericardium No significant pericardial effusion noted. Conclusion 1. Normal left ventricular size preserved left ventricular systolic function, estimated ejection fraction 55% with no regional wall motion abnormality, diastolic parameters are inconclusive. 2. Thickened and calcified aortic valve with mild aortic stenosis, there is moderate aortic insufficiency. 3. No significant pericardial effusion noted. 4. Inferior vena cava is poorly visualized. Electronically signed by : Jeffry White MD 07/10/2022 06:40:41
== END ==
LOC: RT 11:19
PROVIDERS: PCP Family Medicine; Visit Provider Physician Assistant
DX: R00.2 Palpitations (principal); I35.0 Nonrheumatic aortic (valve) stenosis; I35.1 Nonrheumatic aortic (valve) insufficiency; E78.2 Mixed hyperlipidemia; I10 Essential (primary) hypertension; K21.9 Gastro-esophageal reflux disease without esophagitis; Z86.39 Personal history of other endocrine, nutritional and metabolic disease; Z86.79 Personal history of other diseases of the circulatory system
CPT/HCPCS: 93306

== ENCOUNTER → 2022-10-31 13:14 | Outpatient (CLI) | payer OTHER, SELFPAY ==
--- NOTE | 2022-10-31 13:26 | XR_ITS ---
FINAL REPORT CLINICAL HISTORY: .ankle sprain with foot pain COMPARISON: none FINDINGS: RIGHT FOOT 3 views of the right foot were obtained. There is no acute fracture or dislocation. Visualized joint spaces are normally aligned. Soft tissues are unremarkable. IMPRESSION: No acute bony abnormality. Reviewed, Interpreted and Dictated by Carlos Valerio MD Transcribed by Mirella Austin Authenticated and [facility]
--- NOTE | 2022-10-31 13:26 | XR_ITS ---
FINAL REPORT CLINICAL HISTORY: SPRAIN, recurrent sprains, most recent 5 days ago COMPARISON: 12/08/2020 FINDINGS: RIGHT ANKLE 3 views of the right ankle were obtained. There is no acute fracture or dislocation. The mortise is intact. Visualized joint spaces are normally aligned. Soft tissues are unremarkable. IMPRESSION: No acute bony abnormality. Reviewed, Interpreted and Dictated by Carlos Valerio MD Transcribed by Mirella Austin Authenticated and . [facility]
== END ==
LOC: RAD 13:20
PROVIDERS: PCP Family Medicine; Visit Provider Nurse Practitioner Family
DX: M25.571 Pain in right ankle and joints of right foot (principal); M79.671 Pain in right foot; S93.401A Sprain of unspecified ligament of right ankle, initial encounter
CPT/HCPCS: 73610; 73630

== ENCOUNTER → 2022-11-13 12:55 | Outpatient (CLI) | payer OTHER, SELFPAY ==
--- NOTE | 2022-11-13 13:04 | MR_ITS ---
FINAL REPORT CLINICAL HISTORY: RIGHT ANKLE SPRAIN WITH PAIN 2 years ago twisted then again 2-3 weeks ago gives out and swelling FINDINGS: Multiplanar MR imaging of the right ankle was performed without contrast. The Achilles tendon is intact. The plantar fascia is intact. The bony structures are intact without evidence of fracture, bone bruise or marrow edema. No osteochondral lesion is identified. The ligaments are intact without evidence of injury. The flexor and extensor tendons are intact. No significant joint effusion is seen. The musculature is intact. There is mild subcutaneous soft tissue edema about the ankle. IMPRESSION: No significant internal derangement. Reviewed, Interpreted and Dictated by Carlos Valerio MD Transcribed by Bird Gould Authenticated and [facility]
== END ==
LOC: RAD 12:56
PROVIDERS: PCP Family Medicine; Visit Provider Nurse Practitioner Family
DX: S93.401A Sprain of unspecified ligament of right ankle, initial encounter (principal)
CPT/HCPCS: 73721

== ENCOUNTER → 2022-12-04 08:35 | Outpatient (POV) | payer OTHER, SELFPAY | PROVIDERS: Visit Provider Dermatology | DX: Z00.00 Encounter for general adult medical examination without abnormal findings (principal) ==

== ENCOUNTER 2023-01-09 17:42 | Emergency (ER) | payer OTHER, SELFPAY ==
[2023-01-09 17:43] VITALS: BP 138/67; PULSE 69; RESP 18; TEMP 36.4; O2SAT 98; BMI 37.6
[2023-01-09 17:49] VITALS: BP 138/67; PULSE 69; O2SAT 98
[2023-01-09 18:01] VITALS: BP 131/63; PULSE 69; O2SAT 97
--- NOTE | 2023-01-09 18:09 | HMH.EDGENADL ---
Discharge Plan Disposition Patient Disposition: Home, Self-Care Prescriptions Prescriptions: New ondansetron 4 mg tablet,disintegrating 4 mg PO Q6H PRN (Reason: nausea and vomiting) 5 Days Qty: 20 0RF promethazine 25 mg tablet 25 mg PO TID PRN (Reason: nausea and vomiting) 7 Days Qty: 20 0RF No Action paroxetine HCl 40 mg tablet 40 mg PO DAILY Bystolic 5 mg tablet 5 mg PO BID omeprazole 20 MG capsule,delayed release(DR/EC) 20 mg PO DAILY Qty: 30 0RF Referrals Follow up/Referrals: Yuni Xie MD [Primary Care Provider] - See instructions Clinical Impressions Clinical Impression: Chronic abdominal pain, Nausea & vomiting Instructions Patient Instructions: DI for Acute Abdominal Pain Discharge ED Provider: Mukul Obrien General Adult HPI General Chief complaint: Abdominal Pain Stated complaint: nausea,vomiting, ABD pain Time Seen by Provider: 01/09/23 18:09 Mode of Arrival: Ambulatory Source of Information: Patient Limitations: No Limitations Description of Symptoms (Recalled from ER Triage Doc. by RN): 47 yo F presents to ED with c/o abdominal pain that began while pt was at grocery store shopping. pt states that she has been having gastro issue for the past few days, but today the pain has become unbearable. pt states pain is located in the epigastric area. pt does have appendix but does not have gallbladder. History of Present Illness HPI narrative: 47-year-old female presenting today with acute on chronic abdominal pain. This is epigastric in nature this is been going on intermittently for 22 years if not longer. She has had extensive work-ups including cholecystectomy. She has not seen a GI doctor in over 6 months and that was when her last CAT scan was. She states this is not out of the ordinary to what she is experienced in the past. She has not had any hematemesis coffee-ground emesis melena or any other GI or symptoms. She states that in the past normally pain medicine nausea medicine and GI cocktail make her symptoms feel better. Related Data Home Medications Medication Instructions Recorded Confirmed nebivolol 5 mg tablet (Bystolic) 5 mg PO BID 09/29/19 07/12/22 paroxetine HCl 40 mg tablet 40 mg PO DAILY 07/31/21 07/12/22 Previous Rx's Medication Instructions Recorded omeprazole 20 mg capsule,delayed 20 mg PO DAILY #30 caps 11/26/20 release ondansetron 4 mg disintegrating 4 mg PO Q6H PRN nausea and 01/09/23 tablet vomiting 5 days #20 tabs promethazine 25 mg tablet 25 mg PO TID PRN nausea and 01/09/23 vomiting 7 days #20 tabs Allergies Allergy/AdvReac Type Severity Reaction Status Date / Time No Known Drug Intolerances Allergy Unknown NA Verified 07/12/22 10:51 [facility] Disclaimer: The information contained in this section may have been updated after the patient was seen, as this information can be updated by other users. Medical History Gastroesophageal reflux disease Social History Smoking Status: Never smoker second hand exposure: No alcohol intake: never current occupational status: other Travel in the last 8 weeks: Inside the [place] household members: spouse housing: house current occupational exposures/hazards: No caffeine: No ROS Obtained: Yes All systems reviewed & no additional complaints except as documented Physical Exam General General appearance: alert and other (Diaphoresis and pain) Respiratory Respiratory exam: Present normal lung sounds bilaterally; Absent wheezes Cardiovascular Cardiovascular exam: Present regular rate; Absent tachycardia Abdominal Exam Abdominal exam: Present soft and tenderness Neurological Exam Neurological exam: Present alert and oriented X3 Medical Decision Making Jordy Inquiry Pt receiving controlled substance: No Vital Signs: 01/09/23 17:43 0
[2023-01-09 18:24] LABS: Basophils % 0.3 % (0.1-2.0); Eosinophils # 0.7 K/mm3 (0.0-0.4); Eosinophils % 4.5 % (0.1-12.0); Hematocrit 43.2 % (37.0-47.0); Hemoglobin 13.7 g/dL (12.2-16.2); Lymphocytes # 4.5 K/mm3 (0.7-4.5); Lymphocytes % 30.9 % (10-50); Mean Corpuscular HGB Conc 31.7 g/dL (31.8-35.4); Mean Corpuscular Hemoglobin 30.1 pg (27.0-31.2); Mean Corpuscular Volume 95.2 fl (81-99); Mean Platelet Volume 9.3 fl (7.4-10.4); Monocytes # 0.9 K/mm3 (0.1-1.0); Neutrophils # 8.5 K/mm3 (1.8-7.8); Neutrophils % 58.3 % (37.0-80.0); Platelet Count 312 K/mm3 (142-424); Red Blood Count 4.54 M/mm3 (4.20-5.40); Red Cell Distribution Width 12.7 % (11.5-17.5); White Blood Count 14.6 K/mm3 (4.8-10.8)
[2023-01-09 18:28] LABS: Alanine Aminotransferase 28 U/L (12-78); Albumin/Globulin Ratio 1.3 (1.1-1.8); Alkaline Phosphatase 94 U/L (38-126); Anion Gap 14.9 mEq/L (5-15); Aspartate Amino Transferase 54 U/L (14-36); Bilirubin,Total 0.4 mg/dl (0.2-1.3); Blood Urea Nitrogen 12 mg/dl (7-17); Calcium 9.1 mg/dl (8.4-10.2); Carbon Dioxide 25 mmol/L (22.0-30.0); Chloride 104 mmol/L (98-107); Creatinine Clearance Estimated 155 mL/min (50-200); Estimated Glomerular Filt Rate 76 ml/min (>60); GFR (African American) 92 ML/MIN (>60); Glucose 115 mg/dl (74-100); Lipase 144 U/L (23-300); Potassium 3.9 mmoL/L (3.5-5.1); Sodium 140 mmol/L (136-145)
[2023-01-09 19:51] VITALS: BP 132/70; PULSE 79; RESP 19; TEMP 36.8; O2SAT 98
== END 2023-01-09 19:57 | disposition home or self-care (01) ==
PROVIDERS: Emergency Provider Student in an Organized Health Care Education/Training Program; PCP Family Medicine
DX: R11.2 Nausea with vomiting, unspecified (principal); R10.13 Epigastric pain; K21.9 Gastro-esophageal reflux disease without esophagitis
CPT/HCPCS: 80053; 83690; 85025; 96361; 96374; 96375; 99285; J2405

== ENCOUNTER → 2023-01-23 08:55 | Outpatient (CLI) | payer OTHER, SELFPAY ==
--- NOTE | 2023-01-23 09:01 | CT_ITS ---
FINAL REPORT TECHNIQUE: Axial CT images of the abdomen and pelvis were obtained before and after the administration of IV contrast. Oral contrast was administered.This study was performed with techniques to keep radiation doses as low as reasonably achievable (ALARA). Individualized dose reduction techniques using automated exposure control or adjustment of mA and/or kV according to the patient''s size were employed. CLINICAL HISTORY: IRB WITH CONSTIPATION AND DIARRHEA, NAUSEA, VOMITING, UPPER ABD PAIN COMPARISON: 05/28/2022 FINDINGS: Abdomen: Mild atelectasis and/or scar present in the lung bases. The heart is normal in size. The liver has an unremarkable appearance, without evidence of mass or biliary duct dilatation. The gallbladder has been surgically removed.. The spleen is unremarkable. No adrenal masses present. The pancreas has an unremarkable appearance. The kidneys enhance normally. The aorta is normal in caliber. There has been interval improvement in the mesenteric adenopathy noted on the prior CT exam of May 2022. No mass or abnormal fluid collection is seen. Pelvis: The appendix is normal. The urinary bladder is unremarkable. No inflammatory process is seen. There is no evidence of mass or adenopathy. There is a large amount of stool present in the colon. The patient has undergone a hysterectomy. IMPRESSION: Interval improvement in mesenteric adenopathy since the prior CT exam of May 2022. No evidence of acute intra-abdominal process. Reviewed, Interpreted and Dictated by Stefan Spain III, MD Transcribed by Birgit Ramirez Authenticated and [facility]
== END ==
LOC: RAD 08:56
PROVIDERS: PCP Family Medicine; Visit Provider Family Medicine
DX: K58.2 Mixed irritable bowel syndrome (principal)
CPT/HCPCS: 74178; Q9967

== ENCOUNTER → 2023-01-30 14:55 | Outpatient (CLI) | payer OTHER, SELFPAY | PROVIDERS: PCP Family Medicine; Visit Provider Nurse Practitioner Family | DX: R19.7 Diarrhea, unspecified (principal) ==

== ENCOUNTER → 2023-04-04 09:27 | Outpatient (CLI) | payer OTHER, SELFPAY ==
--- NOTE | 2023-04-04 09:28 | CA_ITS ---
APPROVED REPORT EXAM: Comprehensive 2D, Doppler, and color-flow Echocardiogram Bakery Machine Mechanic Supervisor: Dalila Cox, FAVIOLA, RVS Ht: 5 ft 9 in Wt: 253lbs BSA: 2.28 BP: 128/74 mmHg Indications: Aortic insufficiency, , HTN, HLD, Edema 2D Dimensions Aortic Root 3.14 cm F: 2.7 - 3.3 LA Volume 71.20 mL Left Atrium 3.72 cm F: 2.7 - 3.8 LA Volume Index 31.23 mL/m2 (M/F) 16-34 LVOT 2.20 cm (M/F) 1.5-2.5 M-Mode Dimensions RVDd 2.80 cm (0.9-2.6) LA Diam 4.12 cm (1.9-4.0) LVDd 5.52 cm (3.5-5.7) Ao Diam 3.34 cm (2.0-3.7) LVDs 3.73 cm (3.5-5.7) IVSd 1.16 cm (0.6-1.1) PWd 1.08 cm (0.6-1.1) EF (Teich) 60.10% EPSs 1.52 cm FS 32.40% EDV (Teich) 148.70 mL TAPSE 1.88 (<1.7) ESV (Teich) 59.30 mL LV Diastology E Decel Time 327.00 (160-240 msec) E/A Ratio 1.00 MED E' 4.40 (< 7 cm/sec) MED A' 8.80 cm/s E'/MED E' Ratio 20.27 (>14) LAT E' 3.40 (<10 cm/sec) LAT A' 4.60 cm/s E/LAT E' Ratio 26.24 (>14) Aortic Valve LVOT Max 78.00 (70-110 cm/s) LVOT VTI 19.38 cm AoV Peak Tonio. 263.00 (50-130 cm/s) AI PHT 503.00 ms AO Peak GR. 27.70 mmHg AO Mean GR. 14.90 (<5 mmHg) AO VTI 60.17 (18-25 cm) KENDELL (VTI) 1.04 (2.5-4.5 cm2) Mitral Valve MV A Velocity 89.00 (40-130 cm/s) E/A Ratio 1.00 MV Decel. Time 327.00 (160-240 ms) MV Mean Gr. 4.70 (<2mmHg) Pulmonary Valve PV Peak Velocity 85.00 (50-150 cm/s) Left Ventricle Left ventricle is severely dilated (DTFNDm=175 ml/m2). Left ventricular systolic function is mildly decreased. There is increased LV wall thickness. There is mild global hypokinesis. There is grade I diastolic dysfunction. LVEF is 40-45%. Right Ventricle The right ventricle is normal size. The right ventricular systolic function is normal. Atria The left atrium size is normal. The right atrium size is normal. Aortic Valve The aortic valve is mildly thickened. The excursion of the AV leaflets is not well visualized. Mild to moderate aortic stenosis. Mean AV gradient 13 mmHg. Max AV gradient 28 mmHg. Peak velocity 2.7 m/s. KENDELL by continuity equation is 1.2 cm2. SVi=35 mL/m2, DI=0.32 (LVOT diameter 2.2 cm, LVOT VTI 19.3 cm, AV VTI 61.0 cm). Moderate aortic regurgitation. Mitral Valve The mitral valve is normal in structure. No evidence of mitral valve stenosis. Mean MV gradient is 4 mmHg (HR 60 bpm). Trace mitral regurgitation. Tricuspid Valve The tricuspid valve leafets are thin and pliable. Trace tricuspid regurgitation. There is insufficient TR jet to estimate RVSP. Pulmonic Valve The pulmonary valve is normal in structure. Trace pulmonic regurgitation. Great Vessels The aortic root is normal in size. The ascending aorta is mildly dilated. Ascending aorta diameter measures 4.0 cm. IVC is normal in size and collapses >50% with inspiration. Pericardium There is no pericardial effusion. Other Information Study Quality: Fair Conclusion Severely dilated LV (OGFFCp=634 ml/m2) with mild reduction in LV systolic function (LVEF 40-45%) Grade I diastolic dysfunction. Moderate AI Mild to moderate [Mean AV gradient 13 mmHg. Max AV gradient 28 mmHg. Peak velocity 2.7 m/s. KENDELL by continuity equation is 1.2 cm2. SVi=35 mL/m2, DI=0.32 (LVOT diameter 2.2 cm, LVOT VTI 19.3 cm, AV VTI 61.0 cm)]. Mildly dilated ascending aorta. The severity of aortic valvular disease may be underestimated in the setting of borderline SVi. Further evaluation with Dobutamine stress transesophageal echo (dobutamine stress BAILEY) is recommended to evaluate LV volumes, AV area, and severity of AI. Electronically signed by :
== END ==
PROVIDERS: PCP Family Medicine; Visit Provider Nurse Practitioner Family
DX: R06.00 Dyspnea, unspecified (principal); I35.0 Nonrheumatic aortic (valve) stenosis; I35.1 Nonrheumatic aortic (valve) insufficiency; I10 Essential (primary) hypertension; E78.5 Hyperlipidemia, unspecified; R60.9 Edema, unspecified; K21.9 Gastro-esophageal reflux disease without esophagitis; Z86.79 Personal history of other diseases of the circulatory system
CPT/HCPCS: 93306

== ENCOUNTER → 2023-04-22 06:48 | Outpatient (CLI) | payer OTHER, SELFPAY ==
--- NOTE | 2023-04-22 07:19 | CT_ITS ---
FINAL REPORT CLINICAL HISTORY: rule out aneurysm, dilated aorta COMPARISON: 01/23/2023 FINDINGS: Thin section axial CT images of the chest were obtained with contrast. 3D reformatted images were also obtained. This study was performed with techniques to keep radiation doses as low as reasonably achievable (ALARA). Individualized dose reduction techniques using automated exposure control or adjustment of mA and/or kV according to the patient''s size were employed. There is no evidence of pulmonary embolism. The ascending aorta is ectatic at 40 mm without evidence of thoracic aortic aneurysm or dissection. There is no evidence of mediastinal or hilar mass or adenopathy. There is no evidence of pulmonary mass or nodule. Mild atelectasis or scarring is seen at the lung bases. No localized inflammatory process is seen within the lungs. Limited images of the upper abdomen are unremarkable. IMPRESSION: Ectasia of the ascending aorta without evidence of aneurysm or dissection. No mass or localized inflammatory process. Reviewed, Interpreted and Dictated by Stefan Spain III, MD Transcribed by Carie Moreno Authenticated and [facility]
[2023-04-22 07:23] LABS: Blood Urea Nitrogen 14 mg/dl (7-17); Estimated Glomerular Filt Rate 76 ml/min (>60); GFR (African American) 92 ML/MIN (>60)
== END ==
PROVIDERS: PCP Family Medicine; Visit Provider Nurse Practitioner Family
DX: I35.1 Nonrheumatic aortic (valve) insufficiency (principal); I10 Essential (primary) hypertension; I77.810 Thoracic aortic ectasia; E78.5 Hyperlipidemia, unspecified
CPT/HCPCS: 36415; 71275; 82565; 84520; Q9967

== ENCOUNTER 2023-05-06 08:50 | Day surgery (SDC) | payer OTHER, SELFPAY ==
[2023-05-06] VITALS (7 sets, daily range): BP systolic 108–129; BP diastolic 76–84; PULSE 56–71; RESP 14–18; TEMP 36.1–36.6; O2SAT 95–100; BMI 37.6
--- NOTE | 2023-05-06 08:38 | EXP.ANES.CKL ---
[facility] Disclaimer: The information contained in this section may have been updated after the patient was seen, as this information can be updated by other users. Medical History Aortic insufficiency Aortic stenosis Cardiomyopathy Dyspnea on exertion Exercise-induced asthma Family history of asthma Gastroesophageal reflux disease History of 2019 novel coronavirus disease (COVID-19) HLD (hyperlipidemia) HTN (hypertension) Mild ascending aorta dilatation Palpitations Surgical History History of cholecystectomy History of hysterectomy History of surgical removal of ganglion cyst Social History Smoking Status: Never smoker second hand exposure: No alcohol intake: never current occupational status: other Travel in the last 8 weeks: None household members: spouse housing: house current occupational exposures/hazards: No caffeine: No [facility] Anesthesia Checklist Patient Identification Patient Identification: Arm Band and Verbal (Name & ) Structural Data Admitted From: Home Planned Operative Procedure/s: BAILEY Consent for Planned Operative Procedure(s) Verified: Yes NPO Status Verified Time NPO: 00:00 Additional verifications Anesthesia Reactions: No Hx Blood Transfusions: Yes Blood Transfusion Reaction: No Airway Assessment C-Spine Mobility Assessed: Yes TMJ Mobility Assessed: Yes Dentition: Good Dentition Neurological Assessment Level of Consciousness: Awake Hx Seizures: No Numbness or tingling in extremities: No Anesthesia Plan Anesthesia Risk discussed: Yes Anesthesia Plan: Verified ASA Class: III Anesthesia Type: MAC
--- NOTE | 2023-05-06 08:52 | CA_ITS ---
APPROVED REPORT EXAM: Comprehensive 2D, Doppler, and color-flow Echocardiogram Ballet Soloist: Liberty Florentino RVT Ht: 5 ft 9 in Wt: 256lbs BSA: 2.29 BP: 146/80 mmHg Indications: AI,? ,CM,CP,HTN,HLD,SOA Procedure After obtaining informed consent, patient underwent transesophageal echo in the [facility]. Type of Sedation : MAC Sedation was administered by Ariadna Wells C.R.N.A. Sedation start time: 9:55 Case end Time: 10:15 Sedation was achieved intravenously with: Propofol (300 mg) Transesophageal probe was inserted and advanced into esophagus without difficulty by Dr. Tigre Cortez. The BAILEY was performed without complications. Throughout the procedure, the blood pressure, pulse oximetry, cardiac rhythm, and rate were monitored. The patient tolerated the procedure without adverse effects. Recovery from conscious sedation was uneventful and vital signs were stable. Left Ventricle The left ventricle is normal size (LVEDd=5.5 cm, LVESd=3.7 cm) Left ventricular systolic function is mildly decreased. There is normal left ventricular wall thickness. There is mild global hypokinesis. LVEF is 45% Right Ventricle The right ventricle is normal size. The right ventricular systolic function is normal. Atria The left atrium size is normal. No thrombus is visualized in the left atrium or appendage. The right atrium size is normal. Interatrial septum is intact without evidence of ASD or PFO. Aortic Valve The aortic valve is trileaflet. There is focal nodular thickening on the non-coronary cusp of the aortic valve, resulting in malcoaptation of the leaflets. There is no aortic valvular stenosis. Aortic valve area by 2D planimetry is 3.1 cm2. Moderate aortic regurgitation. Vena contracta width is 0.4 cm. Of note, transgastric views were not obtained during the study as the patient could not tolerate the remainder of the procedure. Mitral Valve The mitral valve is normal in structure. No evidence of mitral valve stenosis. Trace mitral valve regurgitation. Tricuspid Valve The tricuspid valve leaflets are thin and pliable. Trace tricuspid regurgitation. RVSP is 10 mmHg + RA pressure. Pulmonic Valve The pulmonary valve is normal in structure. Trace pulmonic regurgitation. Great Vessels The aortic root is normal in size. The ascending aorta is mildly dilated, measuring 3.9 cm in diameter. Pericardium There is no pericardial effusion. Other Information Study Quality: Fair Conclusion Normal LV size with mild reduction in LV systolic function (LVEF 45%). Trileaflet aortic valve. Nodular thickening of the noncoronary cusp. Moderate aortic regurgitation. No evidence of aortic stenosis. Mild dilation of the ascending aorta, measuring 3.9 cm in diameter. Transgastric views could not be obtained to further evaluate the LVOT gradients, as well as the descending aorta and aortic arch, as the patient was mildly hypoxic and could not tolerate the remainder of the procedure. The BAILEY probe was immediately discontinued, and the patient's oxygen levels normalized. Electronically signed by : Cristy Cortez MD 05/07/2023 19:01:31
--- NOTE | 2023-05-06 09:10 | ECG_ITS ---
APPROVED REPORT Exam: Resting ECG HR:57 bpm ECG Measurements Heart Rate 57 AXES SD 163 P 26 QRSd 94 QRS -8 QT 398 T 88 QTc 392 Conclusion SINUS BRADYCARDIA MODERATE VOLTAGE CRITERIA FOR LVH, CONSIDER NORMAL VARIANT [MEETS CRITERIA IN ONE OF: R(aVL), S(V1), R(V5), R(V5/V6)+S(V1)] POSSIBLE ANTERIOR MYOCARDIAL INFARCTION , OF INDETERMINATE AGE [30 ms Q WAVE IN V3/V4, OR R < 0.2 mV IN V4] ABNORMAL ECG UNCONFIRMED REPORT Electronically signed by : Ayan Fairchild MD 05/07/2023 20:04:39
[2023-05-06 09:23] LABS: Basophils # 0.1 K/mm3 (0-0.2); Basophils % 1.1 % (0.1-2.0); Chloride 106 mmol/L (98-107); Eosinophils # 0.3 K/mm3 (0.0-0.4); Hematocrit 45.4 % (37.0-47.0); Hemoglobin 14.4 g/dL (12.2-16.2); Lymphocytes # 3.7 K/mm3 (0.7-4.5); Lymphocytes % 39.4 % (10-50); Mean Corpuscular HGB Conc 31.8 g/dL (31.8-35.4); Mean Corpuscular Hemoglobin 29.8 pg (27.0-31.2); Mean Corpuscular Volume 93.8 fl (81-99); Mean Platelet Volume 8.9 fl (7.4-10.4); Monocytes # 0.6 K/mm3 (0.1-1.0); Monocytes % 5.9 % (1.7-9.3); Neutrophils # 4.7 K/mm3 (1.8-7.8); Neutrophils % 50.6 % (37.0-80.0); Platelet Count 291 K/mm3 (142-424); Potassium 4.2 mmoL/L (3.5-5.1); Red Blood Count 4.84 M/mm3 (4.20-5.40); Red Cell Distribution Width 13.2 % (11.5-17.5); Sodium 140 mmol/L (136-145); White Blood Count 9.3 K/mm3 (4.8-10.8)
[2023-05-06 09:26] LABS: Anion Gap 12.2 mEq/L (5-15); Blood Urea Nitrogen 14 mg/dl (7-17); Calcium 8.9 mg/dl (8.4-10.2); Carbon Dioxide 26 mmol/L (22.0-30.0); Creatinine Clearance Estimated 138 mL/min (50-200); Estimated Glomerular Filt Rate 67 ml/min (>60); GFR (African American) 81 ML/MIN (>60); Glucose 107 mg/dl (74-100)
--- NOTE | 2023-05-06 09:26 | EXP.ANES.CKL ---
[facility] Disclaimer: The information contained in this section may have been updated after the patient was seen, as this information can be updated by other users. Medical History Aortic insufficiency Aortic stenosis Cardiomyopathy Dyspnea on exertion Exercise-induced asthma Family history of asthma Gastroesophageal reflux disease History of 2019 novel coronavirus disease (COVID-19) HLD (hyperlipidemia) HTN (hypertension) Mild ascending aorta dilatation Palpitations Surgical History History of cholecystectomy History of hysterectomy History of surgical removal of ganglion cyst Family History (Updated 05/06/23 @ 09:04 by Mirella Carcamo RN) Other Family history of cancer Social History (Updated 05/06/23 @ 09:05 by Mirella Carcamo RN) Smoking Status: Never smoker second hand exposure: No alcohol intake: never substance use type: denies use current occupational status: other Travel in the last 8 weeks: None household members: spouse housing: house current occupational exposures/hazards: No caffeine: Yes [facility] Anesthesia Checklist Patient Identification Patient Identification: Arm Band Structural Data Admitted From: Home Planned Operative Procedure/s: BAILEY Consent for Planned Operative Procedure(s) Verified: Yes Verified Documents: Surgical Consent and History and Physical NPO Status Verified Time NPO: 00:00 Additional verifications Anesthesia Reactions: No Hx Blood Transfusions: Yes Blood Transfusion Reaction: No Airway Assessment Mallampati Score:: Class II C-Spine Mobility Assessed: Yes TMJ Mobility Assessed: Yes Dentition: Good Dentition Neurological Assessment Level of Consciousness: Awake and Alert Anesthesia Plan Anesthesia Risk discussed: Yes Anesthesia Plan: Verified ASA Class: III Anesthesia Type: MAC
[2023-05-06 09:28] LABS: INR 0.95 (0.9-1.1); Prothrombin Time 10.3 seconds (10.1-12.5)
--- NOTE | 2023-05-06 10:06 | SUR.PREOP ---
CBC,BMP, coag results normal and given to Dr. Cortez.
== END 2023-05-06 12:05 | disposition home or self-care (01) ==
PROVIDERS: PCP Family Medicine; Visit Provider Internal Medicine
DX: I35.1 Nonrheumatic aortic (valve) insufficiency (principal); E78.5 Hyperlipidemia, unspecified; I10 Essential (primary) hypertension; I77.810 Thoracic aortic ectasia; I42.9 Cardiomyopathy, unspecified; R06.09 Other forms of dyspnea; I35.0 Nonrheumatic aortic (valve) stenosis; Z79.899 Other long term (current) drug therapy
CPT/HCPCS: 80048; 85025; 85610; 93005; 93312

== ENCOUNTER → 2023-05-21 11:31 | Outpatient (CLI) | payer OTHER, SELFPAY ==
--- NOTE | 2023-05-21 11:31 | NM_ITS ---
APPROVED REPORT Exam: Nuclear Stress Test Indication: chest pain..short of breath..palpitations..high bp Patient Location: Outpatient Stress Tech: Kristy Willis [place] Tech:Catherine Rivero SERGIOElvi RT (R)(N)(M) Ht: 5 ft 9 in Wt: 255 lbs Bra Size: 40d HR: 60 bpm BP: 143/86 mmHg BSA: 2.29 m2 Rhythm: NSR TID: 1.10 BMI: 37.6 History: chest pain..short of breath..palpitations..high bp Procedure: Patient exercised on Jamie protocol 7:39 minutes and sec, resting heart rate 60 bpm, resting blood pressure 143/86 mmHg, with exercise maximum heart rate achived was 163 bpm which is 95 % of the maximum predicted heart rate and blood pressure was 168/84 mmHg. Patient denied any complaint of chest pain. Patient has Average exercise capacity, achieved 10.1 METs of workload on treadmill, the blood pressure response to exercise was Normal. Cardiac Stress and Resting SPECT Images: Cardiac Stress and Resting SPECT images were obtained using technetium 99m Myoview 31.1 mCi stress and 10.29 mCi at rest. Raw images demonstrate significant soft tissue overlap with the anterior border of the LV wall. Resting and stress imaging in supine position demonstrate a medium sized, mild, fixed perfusion defect in the anterior LV wall. This is no longer visualized with prone stress imaging. Findings are suggestive of soft tissue attenuation. Gated imaging demonstrates low-normal global and regional LV systolic function. LVEF is calculated at 51%. Conclusion: Soft tissue attenuation is present. No definite evidence of fixed or reversible perfusion defects. Gated imaging demonstrates low-normal global and regional LV systolic function. LVEF is calculated at 51%. Electronically signed by : Cristy Cortez MD 05/26/2023 00:29:16
--- NOTE | 2023-05-21 14:13 | CA_ITS ---
APPROVED REPORT Exam: Exercise Treadmill Technologist: Kristy Willis Ht: 5 ft 9 in Wt: 258 lbs BSA: 2.30 m2 HR: 60 bpm BP: 143/86 mmHg Rhythm: NSR Indications: Cardiomyopathy Medical History Medications: Buspirone,,,,, ProMETHAZINE,,,,, Metoclopramide,,,,, PaROXETINE,,,,, ONdansetron,,,,, EnTRESTO,,,,, NeBivolol,,,,, Stress Test Details Test: Jamie HR Resting HR: 66 bpm Max Heart Rate (APMHR): 171 bpm Max HR Achieved: 163 bpm Target HR (85% APMHR): 145 bpm % of APMHR: 95 Recovery HR: 84 bpm HR response to stress: Normal HR response to stress BP Resting BP: 143.0/86.0 mmHg Max BP: 168.0/84.0 mmHg Recovery BP: 134.0/85.0 mmHg BP response to stress: Normal blood pressure response to stress. ECG Resting ECG: Sinus Rhythm Stress ECG: <0.[address] depression Arrhythmia: None Recovery ECG: Return to baseline within 3 minutes of recovery Recovery Arrhythmia: None Clinical Exercise duration: 07:39 min Highest Stage Achieved: Exercise capacity: 10.1 METs Overall Exercise Capacity for Age: Average Stress ECG Conclusion The patient was able to exercise for a total of 7 minutes, 39 seconds. She achieved a total of 10.1 METS. She has an average exercise capacity compared to age and sex matched peers. She has normal HR and BP response to exercise. Symptoms: Dyspnea, Leg Fatigue Arrhythmias/Ectopy: PVC ST-T Changes: < 0.[address] depression. Conclusion: Normal EKG response to exercise. Myoview images are reported separately. Test Summary REST . . . . . . . Sitting REST 04:05 0.0 0.0 66 . 143/ 86 . . Stage 1 01:00 10.0 1.7 84 . . . . Stage 1 02:00 10.0 1.7 100 . . . . Stage 1 03:00 10.0 1.7 105 . 138/ 90 . . Stage 2 01:00 12.0 2.5 120 . . . . Stage 2 02:00 12.0 2.5 130 . . . . Stage 2 03:00 12.0 2.5 134 . 160/ 94 . . Stage 3 . . . . . . . Myoview Injected Stage 3 01:00 14.0 3.4 161 . . . . Stage 3 01:39 14.0 3.4 138 . . . Stop exercise at 07:39 RECOVERY 01:00 0.0 0.0 126 . 164/ 88 . . RECOVERY 02:00 0.0 0.0 95 . 164/ 88 . . RECOVERY 03:00 0.0 0.0 89 . 168/ 84 . . RECOVERY 04:00 0.0 0.0 85 . 168/ 84 . . RECOVERY 05:00 0.0 0.0 84 . 152/ 82 . . RECOVERY 06:00 0.0 0.0 85 . 134/ 85 . . RECOVERY 06:13 0.0 0.0 84 . 134/ 85 . . Electronically signed by : Cristy Cortez MD 05/26/2023 00:26:31
== END ==
PROVIDERS: PCP Family Medicine; Visit Provider Internal Medicine
DX: I42.9 Cardiomyopathy, unspecified (principal); I10 Essential (primary) hypertension; I35.1 Nonrheumatic aortic (valve) insufficiency; I77.810 Thoracic aortic ectasia; R94.31 Abnormal electrocardiogram [ECG] [EKG]; E78.5 Hyperlipidemia, unspecified
CPT/HCPCS: 78452; 93017; A9502

== ENCOUNTER → 2023-05-28 11:02 | Outpatient (CLI) | payer OTHER, SELFPAY ==
[2023-05-28 11:24] LABS: Basophils # 0.1 K/mm3 (0-0.2); Basophils % 0.9 % (0.1-2.0); Eosinophils # 0.2 K/mm3 (0.0-0.4); Eosinophils % 2.2 % (0.1-12.0); Hematocrit 42.2 % (37.0-47.0); Hemoglobin 14.2 g/dL (12.2-16.2); Lymphocytes # 2.8 K/mm3 (0.7-4.5); Lymphocytes % 32.3 % (10-50); Mean Corpuscular HGB Conc 33.6 g/dL (31.8-35.4); Mean Corpuscular Hemoglobin 31.8 pg (27.0-31.2); Mean Corpuscular Volume 94.6 fl (81-99); Monocytes # 0.4 K/mm3 (0.1-1.0); Monocytes % 5.1 % (1.7-9.3); Neutrophils # 5.1 K/mm3 (1.8-7.8); Neutrophils % 59.4 % (37.0-80.0); Platelet Count 271 K/mm3 (142-424); Red Blood Count 4.47 M/mm3 (4.20-5.40); Red Cell Distribution Width 13.4 % (11.5-17.5); White Blood Count 8.6 K/mm3 (4.8-10.8)
[2023-05-28 12:03] LABS: Alanine Aminotransferase 20 U/L (12-78); Albumin Level 4.3 g/dl (3.5-5.0); Alkaline Phosphatase 74 U/L (38-126); Anion Gap 14.7 mEq/L (5-15); Aspartate Amino Transferase 26 U/L (14-36); Bilirubin,Direct 0.1 mg/dl (0.0-0.4); Bilirubin,Indirect 0.1 mg/dL (0.0-0.9); Bilirubin,Total 0.2 mg/dl (0.2-1.3); Bilirubin,Unconjugated 0.1 mg/dL (0.0-1.1); Blood Urea Nitrogen 14 mg/dl (7-17); Calcium 9.7 mg/dl (8.4-10.2); Carbon Dioxide 21 mmol/L (22.0-30.0); Chloride 108 mmol/L (98-107); Chol/HDL Ratio 4.9 (1-3.5); Cholesterol 232 mg/dl (140-200); Estimated Glomerular Filt Rate 89 ml/min (>60); GFR (African American) 108 ML/MIN (>60); Glucose 98 mg/dl (74-100); HDL Cholesterol 47 mg/dl (40-60); Potassium 4.7 mmoL/L (3.5-5.1); Sodium 139 mmol/L (136-145); Total Protein,Serum 7.3 g/dl (6.3-8.2); Triglycerides 185 mg/dl (30-150); VLDL Cholesterol 37 mg/dL (0-40)
[2023-05-28 12:13] LABS: Direct LDL Cholesterol 142.73 mg/dL (100-129)
[2023-05-28 12:34] LABS: Thyroid Stimulating Hormone 3.01 uIU/mL (0.465-4.68)
[2023-05-28 18:25] LABS: Free T4 (Free Thyroxine) 0.78 ng/dl (0.78-2.19)
== END ==
PROVIDERS: PCP Family Medicine; Visit Provider Internal Medicine
DX: I42.8 Other cardiomyopathies (principal); I35.1 Nonrheumatic aortic (valve) insufficiency; I50.20 Unspecified systolic (congestive) heart failure; I10 Essential (primary) hypertension; E78.5 Hyperlipidemia, unspecified; I77.810 Thoracic aortic ectasia; I51.89 Other ill-defined heart diseases
CPT/HCPCS: 36415; 80048; 80061; 80076; 83735; 84439; 84443; 85025

== ENCOUNTER → 2023-07-29 10:12 | Outpatient (CLI) | payer OTHER, SELFPAY ==
--- NOTE | 2023-07-29 10:13 | CA_ITS ---
FINAL REPORT TECHNIQUE: Color Doppler, duplex Doppler and cristina scale sonography of the bilateral neck arterial vasculature was performed. Velocities were measured in the carotid arteries. Stenosis evaluation based on the validated velocity criteria. CLINICAL HISTORY: palps, ringing in ears, , GERD, HTN, HLD FINDINGS: The peak systolic velocity of the right common carotid artery is 80 cm/s. The peak systolic velocity of the right internal carotid artery is 67 cm/s and end diastolic velocity 32 cm/s. A small amount of plaque is present. The right external carotid artery is patent. The right vertebral artery is patent with antegrade flow. ICA/CCA ratio: 1.17 The peak systolic velocity of the left common carotid artery is 87 cm/s. The peak systolic velocity of the left internal carotid artery is 102 cm/s and end diastolic velocity 49 cm/s. A small amount of plaque is present. The left external carotid artery is patent.The left vertebral artery is patent with antegrade flow. ICA/CCA ratio: 1.37 IMPRESSION: Less than 50% bilateral carotid stenoses. Bilateral patent vertebral arteries with antegrade flow. If indicated, CTA or MRA could further evaluate. Reviewed, Interpreted and Dictated by Carlos Valerio MD Transcribed by Carie Moreno Authenticated and [facility]
--- NOTE | 2023-07-29 10:36 | MR_ITS ---
APPROVED REPORT Patient Liaison: CLINICAL INDICATION Aortic regurgitation, evaluate for AI severity TECHNIQUE Image Acquisition: Cardiac magnetic resonance (CMR) was performed on Siemens Espree MRI 1.5T scanner. Software platform sequences were performed using the Siemens [employer] MR B19 platform. A set of three-plane, low-resolution, large [id number] localizers were initially acquired. Then axial, coronal, sagittal TrueFISP, as well as axial HASTE images, were obtained. These were followed by gated TrueFISP breathold cinematic sequences obtained in the short axis with 8 mm slices and 2 mm gaps, 2-chamber (vertical long axis), 3-chamber, 4-chamber (horizontal long axis). A bolus of contrast was injected intravenously with first-pass sequences obtained in the short axis and four-chamber planes. After approximately 10 minutes, a TI winder hand sequence was performed to determine the optimal TI time. Using the optimized TI time, delayed contrast enhancement segmented inversion???recovery TurboFLASH sequences were obtained in the short axis, 2-chamber, 3-chamber, and 4-chamber projections. 2D-velocity phase mapping was performed. Functional parameters were calculated by offline analysis on an independent workstation ([employer], [employer]). Contrast: ProHance??? (Gadoteridol) FINDINGS MORPHOLOGY AND FUNCTION Left ventricle: The left ventricle is normal in size. The indexed left ventricular end-diastolic volume (LVEDVi) is 84 ml/m2 (reference range 57-105 ml/m2 in males, 56-96 ml/m2 in females). Normal left ventricular systolic function is present. There is normal left ventricular wall thickness. There are no regional wall motion abnormalities noted. LVEF is calculated at 57% (reference range 57-77%). Right ventricle: The right ventricle is normal in size. The indexed right ventricular end-diastolic volume (RVEDVi) is 68 ml/m2 (reference range 61-121 ml/m2 in males, 48-112 ml/m2 in females). Normal right ventricular systolic function is present. RVEF is calculated at 54% (reference range 52-72% in males, 51-71% in females). Atria: The left atrium is normal in size. The maximum indexed left atrial volume is 27 ml/m2 (reference range 26-52 ml/m2 in males, 27-53 ml/m2 in females). The right atrium cavity is small. The maximum indexed right atrial volume is 13 ml/m2 (reference range 18-90 ml/m2). Aorta: The diameter of the aortic annulus is normal, measuring 26 mm (coronal view reference range 21-30 mm in males, 19-27 mm in females). The diameter of the aortic sinus is normal, measuring 35 mm (coronal view reference range 25-42 mm in males, 24-36 mm in females). The diameter of the sinotubular junction is normal, measuring 29 mm (coronal view reference range 18-32 mm in males, 18-28 mm in females). The diameters of the ascending and descending thoracic aorta are normal. Main pulmonary artery: The main pulmonary artery diameter is normal. Pericardium: The pericardial thickness is normal. The pericardial thickness measures 2.0 cm (normal < 4.0 cm). There is no pericardial effusion. VALVES The aortic valve is thickened. Moderate aortic regurgitation is present. Aortic regurgitant volume is 35 mL. Aortic regurgitant fraction is 26%. There is no significant valvular stenosis or regurgitation of the mitral, tricuspid, or pulmonic valve noted visually. Systolic anterior motion of the mitral valve is not visualized. Ratio of pulmonary to systemic flow, Qp:Qs ratio = 1.2 (normal < or = 1.2), demonstrating no evidence of hemodynamically significant shunt. TISSUE CHARACTERIZATION Resting Perfusion: Normal myocardial blood flow at rest. No evidence of resting hypoperfusion. Myocardial Fibrosis and/or edema: Normal gadolinium kinetics are present.
[2023-07-29 11:09] LABS: Blood Urea Nitrogen 11 mg/dl (7-17); Estimated Glomerular Filt Rate 89 ml/min (>60); GFR (African American) 108 ML/MIN (>60)
== END ==
PROVIDERS: PCP Family Medicine; Visit Provider Internal Medicine
DX: I11.0 Hypertensive heart disease with heart failure (principal); I35.1 Nonrheumatic aortic (valve) insufficiency; I42.9 Cardiomyopathy, unspecified; I50.20 Unspecified systolic (congestive) heart failure; R00.2 Palpitations; I77.810 Thoracic aortic ectasia; H93.19 Tinnitus, unspecified ear; E78.5 Hyperlipidemia, unspecified
CPT/HCPCS: 36415; 75561; 82565; 84520; 93880; A9576

== ENCOUNTER 2024-04-28 12:42 | Outpatient (CLI) | payer OTHER, SELFPAY ==
--- NOTE | 2024-04-28 | ECG_ITS ---
APPROVED REPORT Exam: Resting ECG HR:64 bpm ECG Measurements Heart Rate 64 AXES GA 156 P 41 QRSd 89 QRS 55 QT 373 T 89 QTc 383 Conclusion SINUS RHYTHM LOW QRS VOLTAGE IN PRECORDIAL LEADS [QRS DEFLECTION < 1.0 mV IN CHEST LEADS] BORDERLINE ECG UNCONFIRMED REPORT Electronically signed by : Ayan Fairchild MD 04/28/2024 18:17:39
--- OUTSIDE RECORDS SUMMARY | 2024-04-28 12:44 | XMS_ITS ---
Author Organization [facility] Address [address] [facility] [address] [place] [id number] Care Team Providers Care Senior Branch Manager Name Role Phone Dominic Blane Primary Care Provider [phone] Mukul Xie Unavailable [phone] Kalin Ha Unavailable [phone] REASON FOR VISIT needs call back MEDICATIONS Medication SIG (Take, Route, Frequency, Duration) Notes Start Date End Date Status Tamiflu 75 MG 1 capsule Orally Twi ce a day for 5 day(s) 09/26/2023 Active Encounters Encounter Location Date Provider Diagnosis [facility] [address] [place] [id number] 09/26/2023 Kalin Ha PLAN OF TREATMENT Medication Medication Name Sig Start Date Stop Date Notes Tamiflu 75 MG 1 capsule Orally Twice a day for 5 day(s)
--- OUTSIDE RECORDS SUMMARY | 2024-04-28 12:44 | XMS_ITS ---
[facility] Address [address] [place] [id number] Care Team Providers Care Figure Clerk Name Role Phone Dominic Blane Primary Care Provider Mukul Xie Unavailable [phone] Suki Raza Unavailable [phone] ALLERGIES No Known Allergies RESULTS Component Value Reference Range Notes CBC Venipuncture (in house) (Not yet reviewed by provider) Interpretation: Performing Lab: Notes/Report: wbc 10.2 3.5 - 10 lymph 33.0 15 - 50 mid 7.2 2 - 15 gran 59.8 35 - 80 rbc 4.62 3.5 - 5.5 hgb 14.3 11.5 - 16.5 hct 43.4 35 - 55 mcv 93.7 75 - 100 mch 31.0 25 - 35 mchc 33.0 31 - 38 platlet 305 100 - 400 Glycohemoglobin A1c (in hous e) (Not yet reviewed by provider) Interpretation:5.7% Performing Lab: Notes/Report: 5.7% glycohemoglobin 5.7% 5 - 6.5 % P-Comprehensive Metabolic Pa christopher (CMP) (Not yet reviewed by provider) Interpretation:gluc 103, Ca 11.5 Performing Lab: Notes/Report: Test performed by [facility] , [address], [place] [address] Kashmir Covarrubias MD, Trust And Estates Attorney CLIA: [id number] Sodium 136 135-145 mmol/L Potassium 4.7 3.5-5.3 mmol/L Chloride 102 97-108 mmol/L CO2 22 22-32 mmol/L Glucose 103 65-99 mg/dL BUN 15 6-20 mg/dL Creatinine 0.87 0.50-1.00 mg/dL Calcium 11.5 8.6-10.4 mg/dL eGFR by Creatinine 81 >59 mL/min/1.73m2 Protein 7.6 6.0-8.3 g/dL Albumin 4.8 3.5-5.3 g/dL Alkaline Phosphatase 88 35-121 IU/L ALT (SGPT) 19 <5-47 IU/L AST (SGOT) 19 <5-40 IU/L Bilirubin, Total 0.3 <0.2-1.2 mg/dL A/G Ratio 1.7 1.1-2.5 P-TSH (Not yet reviewed by parvez fay) Interpretation:Normal Performing Lab: Notes/Report: Test performed by [facility] , [address], [place] [address] Kashmir Covarrubias MD, Trust And Estates Attorney CLIA: [id number] TSH 3.77 0.43-5.25 mU/L REASON FOR REFERRAL Diagnosis 1 Tachycardia (R00.0) Diagnosis 2 Right shoulder pain, unspecified chronicity (M25.511) Referral Organization [facility] Referring Provider First Name Suki Referring Provider Last Name Luz Marina Referring Provider Speciality [facility] ctice Referred Provider Orthopedics, . Referred Provider Specialty Orthopedic S urgery General Notes Suki Raza 2:09:26 PM > right shoulder pain for 7 months is worseZoraida Shelia 04/27/2024 2:41:46 PM > left message for orthoZoraida Shelia 04/27/2024 2:45:39 PM > Awa Beckwith--Apr 30 at 1:15 pt informed Referral Priority Routine REASON FOR VISIT heart rate elevated MEDICATIONS Medication SIG (Take, Route, Frequency, Duration) Notes Start Date End Date Status Entresto 24-26 MG 1 tablet Orally Twic e a day Active Black Cohosh Extract Active busPIRone HCl 10 MG 1 tablet Orally Twic e a day Active Farxiga 10 MG 1 tablet Orally Once a day Active Spironolactone 25 MG 1 tablet Orally Active Promethazine HCl 25 MG 1 tablet as neede d Orally every 6 hrs Active Bystolic 10 MG 1 tablet Orally Once a day for 90 days Active PARoxetine HCl 40 MG TAKE 1 TABLET BY [facility] ONCE DAILY AT BEDTIME for 30 days Active Ondansetron HCl 4 MG 1 tab(s) orally malini ry 8 hours Active Reglan 10 MG 1 tablet before meal s Orally Twice a day for 30 day(s) 01/18/2023 Active Ventolin HFA 108 (90 Base) MCG/ACT 2 puff(s) inhaled before exercise Active PROBLEMS Problem Type ICD Code Onset Dates Problem Status W/U Status Risk SNOMED Code Notes Problem HFrEF (heart failure with reduced ejection fraction) (I50.20) Active confirmed Systolic heart failure (938398311) VITAL SIGNS Weight 269.4 lbs 04/27/2024 Blood pressure systolic 120 mm Hg 04/27/20 24 Blood pressure diastolic 80 mm Hg 024 Heart Rate 92 /min 04/27/2024 Height 68 in 04/27/2024 BMI 40.96 kg/m2 04/27/2024 Encounters Encounter Location Date Provider Diagnosis [facility] [address] [facility] [address] [place], [place] [id number] 04/27/2024 Suki Raza Tachycardia R00.0 ; Shoulder pain, right M25.511 ; Diabetes mellitus screening Z13.1 and HFrEF (heart failure with reduced ejection fraction) I50.20 ASSESSMENTS Encounter Date Diagnosis Assessment Notes Treatment Notes Treatment Clinical Notes 04/27/2024 Tachycardia (ICD-10 - R00.0) discussed when to go to ER --if symptomatic with rapid HR; even thpugh she just saw Cardiology; encouraged to FU with them this week 04/27/2024 Shoulder pain, right (ICD-10 - M25.511) heat/cold application prn; continue with OTC creams; motrin prn ; to see ortho 04/27/2024 Diabetes mellitus screening (ICD-10 - Z13.1) 04/27/2024 HFrEF (heart failure with reduced ejection fraction) (ICD-10 - I50.20) PLAN OF TREATMENT Medication Medication Name Sig Start Date Stop Date Notes Entresto 24-26 MG 1 tablet Orally Twice a day Farxiga 10 MG 1 tablet Orally Once a day Spironolactone 25 MG 1 tablet Orally Bystolic 10 MG 1 tablet Orally Once a day for 90 days Treatment Notes Assessment Notes Tachycardia discussed when to go to ER --if symptomatic with rapid HR; even thpugh she just saw Cardiology; encouraged to FU with them this week Shoulder pain, right heat/cold applicati on prn; continue with OTC creams; motrin prn ; to see ortho Pending Test Test Name Order Date X ray : Shoulder, right 04/27/2024 EKG 04/27/2024 CBC Venipuncture (in house) 04/27/2024 Glycohemoglobin A1c (in house) Event Recorder 04/27/2024 P-Comprehensive Metabolic Panel (CMP) P-TSH 04/27/2024 Referrals Referral Date Details . Orthopedics Next Appt Details Follow Up: prn, Reason: Progress Notes * Examination Category Sub-Category Detail Notes Cardiology Lungs: CTAB A&P Heart sounds: RRR, 80/min; no ecto pics Extremities: no leg edema General Appearance: pleasant, NAD History and Physical Notes * HPI (History of Present Illness) Category Sub-Category Detail Notes Cardiology Short of Breath Chest Pain Palpitations cannot correlate wit h anything Dizziness Shoulder/Upper arm radiation of pain shoulder pain Pt sts that for 7 mo nths she has been having trouble with her right shoulder and sts that she is now losing mobility in it as well. Pt sts that she has limited ROM in her shoulder. She sts that some times it causes her a lot of pain where she can not stand it Consultation Request Notes Referral Date Referring Provider Referred Provider Not clare 04/27/2024 Suki Raza Orthopedics, .
--- OUTSIDE RECORDS SUMMARY | 2024-04-28 12:44 | XMS_ITS ---
Author Organization [facility] Address [address] [place] [id number] Care Team Providers Care Aircraft Technician Name Role Phone Blane Alfaro Primary Care Provider Mukul Xie Unavailable [phone] Zunilda Ross Unavailable [phone] ALLERGIES No Known Allergies REASON FOR VISIT can hear her heartbeat in one ear Encounters Encounter Location Date Provider Diagnosis [facility] [address] [place] [phone] 06/20/2023 Zunilda Ross PLAN OF TREATMENT No Information
--- OUTSIDE RECORDS SUMMARY | 2024-04-28 12:45 | XMS_ITS | Patient Health Record ---
[facility] Address [address] [place] [phone] Care Team Providers Care Cold Press Operator Name Role Phone Blane Alfaro Primary Care Provider Mukul Xie Unavailable [phone] Kalin Ha Unavailable [phone] Suki Raza Unavailable [phone] Zunilda Ross Unavailable [phone] ALLERGIES No Known Allergies RESULTS Component Value [...] 11.5 Performing Lab: Notes/Report: Test performed by [facility] , [address], [place] [address] Kashmir Covarrubias MD, College Advisor CLIA: [id number] Sodium 136 135-145 mmol/L Potassium 4.7 3.5-5.3 [...] Interpretation:Normal Performing Lab: Notes/Report: Test performed by [facility], [address] , [address], [place] [address] Kashmir Covarrubias MD, College Advisor CLIA: [id number] TSH 3.77 0.43-5.25 mU/L colonoscopy Reviewed date:07/10/2023 09:04:41 AM Interpretation:polyps, hemorrhoids, repeat 7 years Performing Lab: Notes/Report: polyps, hemorrhoids, repeat 7 years result: polyps, hemorrhoids repeat study: 7 years MEDICATIONS Medication SIG (Take, Route, Frequency, Duration) Notes Start Date End Date Status Entresto 24-26 MG 1 tablet Orally Twic e a day Active Promethazine HCl 25 MG 1 tablet as neede d Orally every 6 hrs Active Reglan 10 MG 1 tablet before meal s Orally Twice a day for 30 day(s) 01/18/2023 Active Ventolin HFA 108 (90 Base) MCG/ACT 2 puff(s) inhaled before exercise Active Black Cohosh Extract Active busPIRone HCl 10 MG 1 tablet Orally Twic e a day Active Bystolic 10 MG 1 tablet Orally Once a day for 90 days Active Farxiga 10 MG 1 tablet Orally Once a day Active PARoxetine HCl 40 MG TAKE 1 TABLET BY [facility] ONCE DAILY AT BEDTIME for 30 days Active Spironolactone 25 MG 1 tablet Orally Active Ondansetron HCl 4 MG 1 tab(s) orally malini ry 8 hours Active IMMUNIZATIONS Vaccine Route Administration Date Status Comme nts tuberculin (ppd) IM Intramuscular 12/02/2007 Administered tuberculin (ppd) ID Intradermal 03/30/2009 Administered SOCIAL HISTORY Sex Assigned At : Social History Observation Description Sex Assigned At Unknown PROBLEMS Problem Type ICD Code Onset Dates Problem Status W/U Status Risk SNOMED Code Notes Problem Hypothyroidism (acquired) (E03.9) Active confirmed Hypothyroidism (28756531) Problem Vitamin D deficiency (E55.9) Active confirmed 22937121 Problem Essential hypertension (I10) Active confirmed 67417291 Problem Paresthesia (R20.2) Active confirmed 65147173 Problem Mixed hyperlipidemia (E78.2) Active confirmed 139463765 Problem Hypothyroidism, unspecified type (E03.9) Active confirmed 52907446 Problem Exercise-induced asthma (J45.990) Active confirmed 80777295 Problem Irritable bowel syndrome with both constipation and diarrhea (K58.2) Active confirmed 39487288 Problem Anxiety with depression (F41.8) Active confirmed 37875389 Problem HFrEF (heart failure with reduced ejection fraction) (I50.20) Active confirmed Systolic heart failure (416243828) VITAL SIGNS Heart Rate 92 /min 04/27/2024 Blood pressure diastolic 80 mm Hg 04/27/2024 Height 68 in 04/27/2024 Blood pressure systolic 120 mm Hg 04/27/2024 Weight 269.4 lbs 04/27/2024 BMI 40.96 kg/m2 04/27/2024 Encounters Encounter Location Date Provider Diagnosis [facility] [address] [place], [place] [phone] 06/20/2023 Zunilda Ross [facility] [address] [place], [place] [phone] 09/26/2023 Kalin Ha [facility] [address] [place], [place] [phone] 04/27/2024 Suki Raza Tachycardia R00.0 ; Shoulder [...] fraction) (ICD-10 - I50.20) PLAN OF TREATMENT Pending Test Test Name Order Date X ray : Shoulder, right 04/27/2024 EKG 04/27/2024 CBC Venipuncture (in house) 04/27/2024 Glycohemoglobin A1c (in house) 4 Event Recorder 04/27/2024 P-Comprehensive Metabolic Panel (CMP) P-TSH 04/27/2024 Insurance Providers Payer Name Payer Address Payer Phone Subscriber Number Group Number Insured Name Patient Relationship to Insured Coverage Start Date Coverage End Date [facility] [address] [address] [place] [phone] [id number] CARLOS PICHARDO Self - patient is the insured MEDICAL (GENERAL) HISTORY Medical History History ICD Code Fibromyalgia Arthritis Exercise Induced Asthma Surgical History Surgery Date(Month/Year) Cholecystectomy Hysterectomy 06/2017 Hospitalization History Reason Date(Month/Year)
--- NOTE | 2024-04-28 12:50 | XR_ITS ---
FINAL REPORT CLINICAL HISTORY: PAIN, no injury FINDINGS: Right shoulder Five views were obtained. There is no acute fracture or dislocation. The joint spaces appear normal. No soft tissue abnormality is identified. IMPRESSION: No acute process. Reviewed, Interpreted and Dictated by Carlos Valerio MD Transcribed by Nolvia Hillman Authenticated and [facility]
== END 2024-04-28 23:59 | disposition home or self-care (01) ==
PROVIDERS: PCP Nurse Practitioner Family; Visit Provider Nurse Practitioner Family
DX: R00.0 Tachycardia, unspecified (principal); M25.511 Pain in right shoulder
CPT/HCPCS: 73030; 93005; 93270

== ENCOUNTER 2024-05-29 11:22 | Outpatient (CLI) | payer OTHER, SELFPAY ==
--- NOTE | 2024-05-29 11:25 | CA_ITS ---
APPROVED REPORT EXAM: Comprehensive 2D, Doppler, and color-flow Echocardiogram [facility] Program Director: Janice Elliott RDCS Ht: 5 ft 9 in Wt: 271lbs BSA: 2.35 BP: 104/63 mmHg Indications: DEFINITY,CHF,ABN EKG,CM,AF M-Mode Dimensions RVDd 0.89 cm (0.9-2.6) LA Diam 3.59 cm (1.9-4.0) LVDd 5.73 cm (3.5-5.7) LVDs 3.67 cm (3.5-5.7) IVSd 0.97 cm (0.6-1.1) PWd 1.05 cm (0.6-1.1) EF (Teich) 64.80% FS 36.00% EDV (Teich) 162.00 mL TAPSE 2.06 (<1.7) ESV (Teich) 57.00 mL LV Diastology E Decel Time 320 (160-240 msec) E/A Ratio 0.6 Aortic Valve KENDELL Index 0.40 cm2/m2 AoV Peak Tonio. 261.0 (50-130 cm/s) AI PHT 451.00 ms AO Peak GR. 27.20 mmHg AO Mean GR. 13.30 (<5 mmHg) AO VTI 50.0 (18-25 cm) KENDELL (VTI) 0.97 (2.5-4.5 cm2) Mitral Valve MV E Max Tonio. 61.0 (40-130 cm/s) MV A Velocity 97.0 (40-130 cm/s) E/A Ratio 0.63 MV PHT 94.0 ms Left Ventricle The left ventricle is normal size. The left ventricular systolic function is normal. The left ventricular ejection fraction is within the normal range. There is increased LV wall thickness. There is normal LV segmental wall motion. The left ventricular diastolic function is normal. No left ventricle thrombus noted on this study. LVEF is 55%. Right Ventricle The right ventricle is normal size. The right ventricular systolic function is normal. Atria The left atrium size is normal. The right atrium size is normal. There is no Doppler evidence of interatrial shunt. Aortic Valve The aortic valve is mildly thickened. The aortic valve is known in to be trileaflet (prior BAILEY), but morphologically abnormal. Mild aortic stenosis is present. Peak velocity 2.5 m/s. Mean AV gradient 12 mmHg. Max AV gradient 27 mmHg. Mild to moderate aortic regurgitation. Mitral Valve The mitral valve is normal in structure. No evidence of mitral valve stenosis. Trace Mitral Regurgitation. Tricuspid Valve Tricuspid valve is grossly normal in structure and function. Trace tricuspid regurgitation. There is insufficient TR to estimate RVSP. Pulmonic Valve The pulmonary valve is normal in structure. Trace pulmonic regurgitation. Great Vessels The aortic root is normal in size. The ascending aorta is not well visualized. IVC is normal in size and collapses >50% with inspiration. Pericardium There is no pericardial effusion. Other Information Study Quality: Fair Conclusion Normal biventricular size and systolic function. Trileaflet aortic valve, but morphologically abnormal. Mild (peak velocity 2.5 m/s. Mean AV gradient 12 mmHg. Max AV gradient 27 mmHg). Mild to moderate AI. Compared to prior study, the LVEF has improved and is now normal. Electronically signed by : Cristy Cortez MD 06/04/2024 11:39:56
[2024-05-29] MEDS: DEFINITY US ECHO CONTRAST 2ML INJ 2 MG IV (12:00)
== END 2024-05-29 23:59 | disposition home or self-care (01) ==
LOC: RT 11:22
PROVIDERS: PCP Family Medicine; Visit Provider Internal Medicine
DX: I35.1 Nonrheumatic aortic (valve) insufficiency (principal); I77.810 Thoracic aortic ectasia; I50.20 Unspecified systolic (congestive) heart failure
CPT/HCPCS: 93306; Q9957

== ENCOUNTER 2024-07-14 08:00 | Outpatient (RCR) | payer OTHER, SELFPAY ==
--- NOTE | 2024-06-09 14:46 | HMH.OTOPEV ---
OT Inpatient Evaluation Rehab OT Outpatient Eval Start: 06/09/24 14:15 Freq: Status: Active Protocol: Document 06/09/24 14:15 LAWRENCEDENYS (Rec: 06/09/24 14:41 KENNAALIE [id number]) E-signed By Marjorie Alegria, OT Outpatient Therapy Subjective History Subjective History 48 year old female referred to skilled OP OT services for R shld pain of adhesive capullitis. Patient reported having pain in the R shld for the past 10-11 months with no relief. Chief Complaint Pain Symptom Type Ache Symptoms Relieved By Nothing Symptoms Aggravated By Physical Activity Prior Functional Limitations None Current Functional Limitations Reaching,Lifting,Recreation Activity Symptom Description Constant and Continuous Level of pain today (0-10) 0 Pain scale - at its best (0-10) 0 Pain scale - at its worst (0-10) 10 Shoulder/Elbow Eval Shoulder Objective Measurements Shoulder ROM Right Shoulder Abduction Active Range of 109 Motion (degrees) Shoulder Flexion Active Range of Motion 36 (degrees) Query Text: Shoulder External Rotation Active Range 50 of Motion (degrees) Shoulder Internal Rotation Active Range 42 of Motion (degrees) pain with active ROM shoulder exam right standard Shoulder MMT Shoulder Abduction Strength Grade 3- Fair- Shoulder Extension Strength Grade 3- Fair- Shoulder Flexion Strength Grade 3- Fair- Shoulder Horizontal Abduction Strength 3- Fair- Grade Shoulder Horizontal Adduction Strength 3- Fair- Grade Infraspinatus/Teres Minor Strength Grade 3- Fair- Shoulder External Rotation Strength 3- Fair- Grade Shoulder Internal Rotation Strength 3- Fair- Grade Elbow Objective Measurements QuickDASH Activities Please rate your ability to do the following activities in the last week by selecting the number below the appropriate response. 1. Open a tight or new jar. Moderate difficulty 2. Do heavy blowing weasand (e.g., wash Moderate difficulty martin, floors). 3. Carry a shopping bag or briefcase. Mild difficulty 4. Wash your back. Unable 5. Use a knife to cut food. Mild difficulty 6. Recreational activities in which you Unable take some force or impact through your arm, shoulder, or hand (e.g., golf, hammering, tennis, etc.). 7. During the past week, to what extent Moderately has your arm, shoulder or hand problem interfered with your normal social activities with family, friends, neighbors or groups? 8. During the past week, were you Moderately limited limited in your work or other regular daily activites as a result of your arm, shoulder or hand problem? 9. Arm, shoulder or hand pain. Moderate 10. Tingling (pins and needles) in your None arm, shoulder or hand. 11. During the past week, how much Severe difficulty difficulty have you had sleeping because of the pain in your arm, shoulder or hand? Quick DASH 34 OT Outpatient Assessment Impairments Problems/Impairments Impaired Range of Motion, Impaired Strength,Subjective C /O Pain Prognosis Rehab Potential Good Clinical Impression Consistent with Diagnosis Yes Short Term Goals Number of Weeks 2 Increase Range of Motion Yes: Improve AROM of R UE shld flex: 150; abd: 130; er: 60; ir: 50 Increase Strength Yes: Improve R UE shld strength to 3- to 3+/5 throughout Decrease Subjective C/O Pain Yes: 8/10 pain at worst Patient to be Ind w/ HEP Yes: AAROM Patient to be Ind w/ Advanced HEP Yes: Strengthening Improve Quick Dash Score Yes: 30 Environmental Sampler Goals Number of Weeks 4 Increase Range of Motion Yes: Improve AROM of R UE shld flex: 160; abd: 150; er: 70; ir: 60 Increase Strength Yes: Improve R UE shld strength to 3+/5 to 4-/5 throughout Decrease Subjective C/O Pain Yes: 5/10 pain at worst Patient to be Ind w/ HEP Yes: AROM Patient to be Ind w/ Advanced HEP Yes: Advance strengthening Improve Quick Dash Score Yes: 25 Outpatient Therapy Plan of Care Treatment Plan May Include Therapeutic Exercise Including Home Yes Exercise Program Manual Therapy Techniques Yes Therapeutic Activities to Return to Yes Previous Functional/Work Level Thermal Modalities Yes Electrical Stimulation Yes Ultrasound/Phonophoresis Yes Iontophoresis Yes Eval/Re-Eval Yes Aquatic Therapy Yes Frequency Times per week 2x/wk Duration Number of Weeks 4 weeks Addendums This patient is a candidate for social No or vocational rehab? Patient/Guardian verbally acknowledges Yes understanding of treatment program and consents to further treatment? Patient/Guardian verbally acknowledges Yes understanding of diagnosis, prognosis and goals for treatment? Eval Complexity OT Charge 47811 - Low Complexity PHYSICIAN CERTIFICATION: I certify the specified therapy services for Myrna Holden are required, authorized, and reviewed every 30 days.
== END 2024-07-14 23:59 | disposition home or self-care (01) ==
LOC: OT 08:00
PROVIDERS: Visit Provider Physician Assistant
DX: M75.01 Adhesive capsulitis of right shoulder (principal)
CPT/HCPCS: 97014; 97035; 97110; 97140; 97165; 97530; G0283

== ENCOUNTER 2024-07-14 10:29 | Outpatient (CLI) | payer OTHER, SELFPAY ==
[2024-07-14 11:01] LABS: Blood Urea Nitrogen 13 mg/dl (7-17); Estimated Glomerular Filt Rate 66 ml/min (>60); GFR (African American) 80 ML/MIN (>60)
== END 2024-07-14 23:59 | disposition home or self-care (01) ==
LOC: LAB 10:29
PROVIDERS: PCP Family Medicine; Visit Provider Internal Medicine
DX: E78.2 Mixed hyperlipidemia (principal); I42.9 Cardiomyopathy, unspecified
CPT/HCPCS: 36415; 82565; 84520

== ENCOUNTER 2024-07-16 13:29 | Outpatient (CLI) | payer OTHER, SELFPAY ==
--- NOTE | 2024-07-16 13:30 | CT_ITS ---
FINAL REPORT CLINICAL HISTORY: ectasia of ascending aorta COMPARISON: 04/22/2023 FINDINGS: Thin section axial CT images of the chest were obtained with contrast. 3D reformatted images were also obtained. This study was performed with techniques to keep radiation doses as low as reasonably achievable (ALARA). Individualized dose reduction techniques using automated exposure control or adjustment of mA and/or kV according to the patient's size were employed. There is no evidence of pulmonary embolism. 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 Finding is stable since previous. There is no evidence of mediastinal or hilar mass or adenopathy. There is no evidence of pulmonary mass or nodule. No localized inflammatory process is seen within the lungs. . The patient is status postcholecystectomy IMPRESSION: Ectasia of the ascending aorta, stable. Reviewed, Interpreted and Dictated by Stefan Spain III, MD Transcribed by Nolvia Hillman Authenticated and [facility]
[2024-07-16] MEDS: IOPAMIDOL-370 (76%);100ML BOTTLE 100 ML IV (13:56)
[2024-07-16] MEDS: 0.9 % SODIUM CHLORIDE 50 ML VIAL IV (13:56)
[2024-07-16] MEDS: SODIUM CHLORIDE 0.9% 10ML SYR (RAD ONLY) 10 ML IV (13:56)
== END 2024-07-16 23:59 | disposition home or self-care (01) ==
LOC: RAD 13:30
PROVIDERS: PCP Family Medicine; Visit Provider Internal Medicine
DX: I48.0 Paroxysmal atrial fibrillation (principal); I35.1 Nonrheumatic aortic (valve) insufficiency; I50.20 Unspecified systolic (congestive) heart failure; I77.810 Thoracic aortic ectasia
CPT/HCPCS: 71275; Q9967

== ENCOUNTER 2024-08-27 08:10 | Outpatient (CLI) | payer BC, SELFPAY ==
--- NOTE | 2024-08-27 08:15 | MM_ITS ---
PROCEDURE INFORMATION: Exam: US Left Breast, Complete US Right Breast, Complete MG Bilateral Screening 3D Mammography Exam date and time: 08/27/2024 7:59 AM Age: 48 years old Clinical indication: Screening mammogram. Clinical history are upper inner left breast pain TECHNIQUE: Imaging protocol: Complete ultrasound of all four quadrants of the left breast and the retroareolar regions, including ultrasound of the axilla when performed. Complete ultrasound of all four quadrants of the right breast and the retroareolar regions, including ultrasound of the axilla when performed. Bilateral Screening tomosynthesis and 2D mammography including computer-aided detection (CAD) when performed. COMPARISON: 1. MG MM DIG SCREENING MAMM BI W/CAD 12/12/2020 10:31 AM 2. MG MM DIG MAMM DX UNILAT RT CAD 05/09/2020 2:17 PM 3. MG MM DIG MAMM BI DX W/CAD 11/20/2019 10:14 AM 4. US BREAST RT COMPLETE 05/09/2020 2:49 PM FINDINGS: MAMMOGRAPHY: Breast composition: The breast is heterogeneously dense, which may obscure small masses. No new mass, architectural distortion, or suspicious cluster of calcifications has developed to suggest malignancy. No axillary adenopathy. ULTRASOUND: Bilateral 4 quadrants and retroareolar breast ultrasound and bilateral axilla ultrasound Irregular heterogeneously hypoechoic mass along the 10 o'clock axis 5 cm from the left nipple measures 0.6 x 0.4 x 0.6 cm. This demonstrates suspicious sonographic features Hypoechoic masses with posterior acoustic enhancement are morphologically similar to 1 another as follows: 0.8 x 0.8 x 0.5 cm left 12 o'clock 3 cm from the nipple 0.8 x 0.6 x 0.8 cm left 10 o'clock 7 cm from the nipple 1.1 x 1.0 x 0.5 cm left 10 o'clock 5 cm from the nipple 1.2 x 1.2 x 0.7 cm right 1 o'clock 4 cm from the nipple 1.0 x 1.2 x 0.6 cm right 12 o'clock 3 cm from the nipple No architectural distortion or shadowing is present. No axillary adenopathy is present. IMPRESSION: Ultrasound-guided biopsy is recommended to definitively characterize a left 10 o'clock 5 cm from nipple 0.6 cm irregular mass Numerous additional masses within bilateral breasts demonstrate morphologically similar features to 1 another. Surveillance with targeted ultrasound in 6 months is warranted to assure stability. If 1 of these should change in suspicious way over the short term interval than ultrasound-guided biopsy will be recommended ASSESSMENT: Screening mammogram BIRADS: BI-RADS category 1: Negative Overall BIRADS: BI-RADS category 4: Suspicious
== END 2024-08-27 23:59 | disposition home or self-care (01) ==
LOC: RAD 08:11
PROVIDERS: PCP Family Medicine; Visit Provider Obstetrics & Gynecology
DX: Z12.31 Encounter for screening mammogram for malignant neoplasm of breast (principal); N64.4 Mastodynia
CPT/HCPCS: 76641; 77063; 77067

== ENCOUNTER 2024-09-07 09:02 | Outpatient (CLI) | payer BC, SELFPAY ==
--- NOTE | 2024-09-07 | MM_ITS ---
FINAL REPORT CLINICAL HISTORY: clip placement s/p biopsy FINDINGS: MAMMOGRAM LEFT TECHNIQUE: Standard digital 2-D views COMPARISON: None DENSITY: There are scattered areas of fibroglandular density FINDINGS: 2 separate areas of biopsy are noted. The more anterior focus represents biopsy #1 with a sonographic location at 10:00 5 cm from the nipple. The more posterior location has 2 biopsy marker clips with sonographic location 10:00, 9-10 cm from the nipple. No associated mammographic lesions IMPRESSION: Biopsy marker clips in good position ASSESSMENT: A post-procedure mammogram is used to confirm the position and deployment of a breast tissue marker after a biopsy RECOMMENDATION: 1. The 2 clip, more posterior location was associated with invasive ductal carcinoma. 2. The single anterior clip was associated with focal epithelial atypia without malignancy 3. Surgical consultation is recommended for further management. Excisional biopsy is recommended of the anterior biopsy marker clip unless mastectomy is performed for invasive ductal carcinoma of the more posterior biopsy site Authenticated and ERN
--- NOTE | 2024-09-07 09:06 | US_ITS ---
FINAL REPORT CLINICAL HISTORY: LT breast nodules x 2 -- LT breast biopsy -- dr clarisse donovan -- mammatome x 2 FINDINGS: ULTRASOUND-GUIDED LEFT BREAST CORE BIOPSY, biopsy 1 of 2 Note: This biopsy refers to the more anterior lesion located 5 cm from the nipple at 10:00 TECHNIQUE: Limited images were obtained to localize region of interest. The left was prepped in a routine sterile fashion and locally anesthetized with 1% lidocaine. Standard written informed consent was obtained. An 11-gauge vacuum assisted hand-held device was utilized. The needle was positioned posterior to the lesion. Multiple vacuum assisted core samples were obtained. The lesion was noted to be significantly smaller following biopsy. A biopsy marker clip was deployed in satisfactory position. Postbiopsy mammogram showed postbiopsy changes with clip in satisfactory position. Procedure was well tolerated . CONCLUSION: 1. Technically successful ultrasound guided core vacuum assisted biopsy of left breast lesion as above. 2. Single biopsy marker clip deployed Histopathology results reveal focal flat epithelial atypia with associated sclerosing adenosis. No evidence of malignancy.. Pathology is concordant with mammographic findings. Recommend excisional biopsy given findings of atypia. ULTRASOUND-GUIDED LEFT BREAST CORE BIOPSY, biopsy 2 of 2 Note: This is biopsy of the more posterior lesion located at 10:00 9 cm from the nipple. 2 biopsy marker clips were placed at this site. This lesion was not initially recommended for biopsy but during the initial localization exam and irregular hypoechoic area with shadowing was noted. Decision was made to perform biopsy of this lesion. TECHNIQUE: Limited images were obtained to localize region of interest. The left was prepped in a routine sterile fashion and locally anesthetized with 1% lidocaine. Standard written informed consent was obtained. An 11-gauge vacuum assisted hand-held device was utilized. The needle was positioned posterior to the lesion. Multiple vacuum assisted core samples were obtained. The lesion was noted to be significantly smaller following biopsy. There was only a single shaped biopsy marker clip within the department. For this reason 2 separate biopsy marker clips were placed at this location to distinguish this site from the 1st biopsy site associated with only one biopsy marker clip Postbiopsy mammogram showed postbiopsy changes with clip in satisfactory position. Procedure was well tolerated . CONCLUSION: 1. Technically successful ultrasound guided core vacuum assisted biopsy of left breast lesion as above. 2. 2 separate biopsy marker clips deployed Histopathology results reveal invasive ductal carcinoma. Pathology is concordant with mammographic findings. Recommend oncologic and surgical management Authenticated and ERN
== END 2024-09-07 23:59 | disposition home or self-care (01) ==
LOC: RAD 09:03
PROVIDERS: PCP Family Medicine; Visit Provider Obstetrics & Gynecology
DX: N63.20 Unspecified lump in the left breast, unspecified quadrant (principal)
CPT/HCPCS: 19083; 77065; C2618

== ENCOUNTER 2025-01-19 14:28 | Outpatient (CLI) | payer BC, SELFPAY ==
--- OUTSIDE RECORDS SUMMARY | 2025-01-19 14:33 | XMS_ITS | Clinical Summary ---
Author Organization [facility] Address [address] [place] [address] Care Team Providers Care Narcotics Investigator Name Role Phone Ayan Huggins MD Primary Care Provider [phone] Social History Tobacco Use Types Packs/Day Years Used Date Smoking Tobacco: Never Assessed Comments Unknown Sex and Gender Information Value Date Recorded Sex Assigned at Not on file Legal Sex Female 8:39 PM EDT Gender Identity Not on file Sexual Orientation Not on file Plan of Treatment Health Maintenance Due Date Last Done Comments [facility]-Depression Screening 1975 [facility]-/Child/Adol SDOH Screenings 1975 [facility]- SDOH Screenings 10/19/1991 [facility]-Adult SDOH Screenings 10/19/1991 [facility]-DTaP,Tdap,and Td Vaccine s (1 - Tdap) 1992 [facility]-Hepatitis B Vaccines (1 of 3 - 19+ 3-dose series) 1992 [facility]-Pap Smear 1994 [facility]-Cervical Cancer Screening 10/19/2003 [facility]-HPV/Cotest 10/19/2003 CT Colonography 2018 Colonoscopy 2018 FIT-DNA 2018 FIT 2018 FOBT 2018 Sigmoidoscopy 2018 [facility]-Colorectal Cancer Screening 2018 [facility]-Pneumococcal Vaccine: 50 + Years (1 of 1 - PCV) 10/19/2023 [facility]-Zoster Vaccines (1 of 2) 10/19/2023 [id number] Vaccine (1 - 20 24-25 season) 2024 [facility]-Influenza Vaccine ([place] n Ended) 2025 HPV Vaccines Aged Out No longer eligi ble based on patient's age to complete this topic [facility]-HIB Vaccines Aged Out No longer e ligible based on patient's age to complete this topic [facility]-Hepatitis A Vaccines Aged Out No longer eligible based on patient's age to complete this topic [facility]-IPV Vaccines Aged Out No longer e ligible based on patient's age to complete this topic [facility]-Rotavirus Vaccines Aged Out No lo nger eligible based on patient's age to complete this topic Insurance Care Teams Narcotics Investigator Relationship Specialty Start Date End Date Ayan Huggins MD [address] [place] [address] PCP - General 08/12/20
== END 2025-01-19 23:59 | disposition home or self-care (01) ==
LOC: RT 14:29
PROVIDERS: PCP Family Medicine; Visit Provider Internal Medicine
DX: I49.1 Atrial premature depolarization (principal); I47.19 Other supraventricular tachycardia; I49.3 Ventricular premature depolarization; I47.20 Ventricular tachycardia, unspecified; I48.0 Paroxysmal atrial fibrillation
CPT/HCPCS: 93270

== ENCOUNTER 2025-01-28 08:11 | Outpatient (CLI) | payer BC, SELFPAY ==
--- OUTSIDE RECORDS SUMMARY | 2024-09-18 06:45 | XMS_ITS ---
Author Organization [facility] Address [address] [place] [id number] Care Team Providers Care Oven Loader Name Role Phone Blane Alfaro Primary Care Provider Mukul Xie Unavailable [phone] Zunilda Ross Unavailable [phone] Allergies No Known Allergies Reason For Referral Diagnosis 1 Irritable bowel synd jerilyn with both constipation and diarrhea (K58.2) [facility]erral Organization [facility] Referring Provider First Name Zunilda Referring Provider Last Name Vandana Referring Provider Speciality Physician Social Science Manager Referred Provider Gastroenterology, . Referred Provider Specialty Gastroentero logy General Notes Zunilda Ross 2024 11:32:36 AM > Needs an appt with Delmy Fisher Brynn 09/18/2024 11:33:48 AM > faxed to Dr. Zaidi office, Suzanne Brock 09/23/2024 9:12:34 AM > 10/21/2024 at 10:30am Referral Priority Routine Diagnosis 1 Malignant neoplasm o f unspecified site of left female breast (C50.912) Diagnosis 2 Estrogen receptor po sitive status [ER+] (Z17.0) Diagnosis 3 Adenocarcinoma (C80. 1) Referral Organization [facility] Referring Provider First Name Zunilda Referring Provider Last Name Vandana Referring Provider Speciality Physician Social Science Manager Referred Provider Hematology-Oncology, . Referred Provider Specialty Hematology/O ncology General Notes Zunilda Ross 2024 1:18:21 PM > Patient needs a referral to breast oncology at [facility]. Her daughter will call back with who she would like to see., Suzanne Brock 09/18/2024 1:23:57 PM > patient would like to see Viviane Norris at [facility]; faxed all imaging and office notes, Suzanne Brock 09/21/2024 10:04:30 AM > Dr. Norris does not see breast cancer patients; patient wouldl like to see Dr. Castañeda at [facility]; referral faxed Referral Priority Routine Diagnosis 1 Malignant neoplasm o f unspecified site of left female breast (C50.912) Diagnosis 2 Estrogen receptor po sitive status [ER+] (Z17.0) Diagnosis 3 Adenocarcinoma (C80. 1) Referral Organization [facility] Referring Provider First Name Zunilda Referring Provider Last Name Vandana Referring Provider Speciality Physician Social Science Manager Referred Provider Lashae Johnson Referred Provider Specialty General Surg vance General Notes Zunilda Ross 2024 1:19:38 PM > Pt needs an appt with Delmy Yañez Brynn 09/18/2024 1:36:01 PM > faxed all imaging and office notes to Dr. WALDRON's office, Suzanne Brock 09/22/2024 10:06:39 AM > 09/30/2024 at 02:45pm; patient informed Referral Priority Routine REASON FOR VISIT Discuss Carcinoma Medications Medication SIG (Take, Route, Frequency, Duration) Notes Start Date End Date Status Bystolic 10 MG 1 tablet Orally Once a day for 90 days Active busPIRone HCl 10 MG 1 tablet Orally Twic e a day Active Spironolactone 25 MG 1 tablet Orally Active Farxiga 10 MG 1 tablet Orally Once a day Active Entresto 24-26 MG 1 tablet Orally Twic e a day Active PARoxetine HCl 40 MG TAKE 1 TABLET BY [facility] ONCE DAILY AT BEDTIME for 30 days Active Promethazine HCl 25 MG 1 tablet as neede d Orally every 6 hrs Active Ondansetron HCl 4 MG 1 tab(s) orally malini ry 8 hours Active Ventolin HFA 108 (90 Base) MCG/ACT 2 puff(s) inhaled before exercise Active Reglan 10 MG 1 tablet before meal s Orally Twice a day for 30 day(s) 01/18/2023 Active Black Cohosh Extract Active Problems Problem Type SNOMED Code ICD Code Onset Dates Problem Status W/U Status Risk Notes Problem [id number] Malignant neopla sm of unspecified site of left female breast (C50.912) Active confirmed Problem 891364753 Estrogen recepto r positive status [ER+] (Z17.0) Active confirmed Problem 839893266 Adenocarcinoma (C80.1) Active confirmed Vital Signs Blood pressure systolic 120 mm Hg 09/18/19 25 Blood pressure diastolic 74 mm Hg 025 Heart Rate 74 /min 09/18/2024 Height 68 in 09/18/2024 Weight 267.4 lbs 09/18/2024 BMI 40.65 kg/m2 09/18/2024 Encounters Encounter Location Date Provider Diagnosis [facility] [address] [place], [place] [id number] 09/18/2024 Zunilda Ross Malignant neoplasm o f unspecified site of left female breast C50.912 ; Estrogen receptor positive status [ER+] Z17.0 ; Adenocarcinoma C80.1 and Irritable bowel syndrome with both constipation and diarrhea K58.2 Assessments Encounter Date Diagnosis (ICD Code) Assessment Notes Treatment Notes Treatment Clinical Notes Section Notes 09/18/2024 Malignant neoplasm of unspecified site of left female breast (ICD-10 - C50.912) 09/18/2024 Estrogen receptor positive status [ER+] (ICD-10 - Z17.0) 09/18/2024 Adenocarcinoma (ICD-10 - C80.1) 09/18/2024 Irritable bowel syndrome with both constipation and diarrhea (ICD-10 - K58.2) Plan Of Treatment Referrals Referral Date Details 09/18/2024 09/18/2024, . Gastro enterology 09/18/2024 09/18/2024, . Hemato logy-Oncology 09/18/2024 09/18/2024, Najma Falcon Next Appt Details Follow Up: with oncology, Re ason: Progress Notes * CARLOS HOLDENDOB: 4 (49 yo F)Acc No.[id number]:09/18/2024 Progress Notes Patient: CARLOS OQUENDO Provider: MELIDA Corcoran :1975 A ge:48 Y S ex:Female Date:09/18/2024 Address:[place], [id number] Pcp:Blane Alfaro Subjective: * Chief Complaints: * 1 . Discuss Carcinoma. * HPI: H PI: 48 year old female presents with c/o Patient is here today for?Pt is here today to discuss breast carcinoma. Pt sts she had a left breast biopsy done on the and sts it came cancerous. Patient states she saw the results on her portal and has not heard back from the doctor who ordered the biopsy. Pt would like to discuss this and get a referral to oncology.. G astroenterology: Patient also needs a referral to Dr. Zaidi. She was seeing him in the past. * ROS: A LLERGY: no C ough. n o R unny nose. C ARDIOLOGY: no C hest pain. G ASTROENTEROLOGY: no V omiting. n o D iarrhea. U ROLOGY: no D ifficulty urinating. n o B lood in urine. * Medical History: F ibromyalgia, Arthritis, Exercise Induced Asthma. * Surgical History: C holecystectomy , Hysterectomy 06/2017. * Family History: F ather: alive 62 yrs. M other: alive 60 yrs. P aternal Grand Father: alive. P aternal Grand Mother: . M aternal Grand Father: . M aternal Grand Mother: alive. 4 sister(s) . 3 son(s) , 1 daughter(s) . . * Social History: C URRENT TOBACCO USE S moking Status: Patient does NOT smoke. C affeine: yes, frequency:. Exercise: yes. Home smoke detector use: yes. Marital Status: Single. New since last visit: none. Occupation: yes. Past smoking status: no. Occup. exposure: none. Recreational drug use: no. Alcohol: no. Sexually active: yes. Travel ouside [place]: no. * Medications: T aking Bystolic 10 MG Tablet 1 tablet Orally Once a day , Taking Entresto 24-26 MG Tablet 1 tablet Orally Twice a day , Taking Spironolactone 25 MG Tablet 1 tablet Orally , Taking Farxiga 10 MG Tablet 1 tablet Orally Once a day , Taking busPIRone HCl 10 MG Tablet 1 tablet Orally Twice a day , Taking Black Cohosh Extract , Taking Ventolin HFA 108 (90 Base) MCG/ACT Aerosol Solution 2 puff(s) inhaled before exercise , Taking Reglan 10 MG Tablet 1 tablet before meals Orally Twice a day , Taking Promethazine HCl 25 MG Tablet 1 tablet as needed Orally every 6 hrs , Taking Ondansetron HCl 4 MG Tablet 1 tab(s) orally every 8 hours , Taking PARoxetine HCl 40 MG Tablet TAKE 1 TABLET BY MOUTH ONCE DAILY AT BEDTIME , Medication List reviewed and reconciled with the patient * Allergies: N .K.D.A. Objective: * Vitals: W t:267.4, Temp:97.5, BP:120/74, HR:74, O2 Sat:99% on RA, Nurse:SHAKILA, Ht: 68, BMI:40.65. * Examination: G eneral Examination: General Appearance: N AD. Chest: n ormal shape and expansion. Heart: R SR. Lungs: c lear to auscultation. Abdomen: bowel sounds present, soft and nontender. ? Assessment: * Assessment: 1. M alignant neoplasm of unspecified site of left female breast - C50.912 (Primary) 2 . E strogen receptor positive status [ER+] - Z17.0 3 . A denocarcinoma - C80.1 4 . I rritable bowel syndrome with both constipation and diarrhea - K58.2 Plan: * Treatment: 2. E strogen receptor positive status [ER+] Referral To:. Hematology-Oncology Hematology/Oncology Reason: Referral To:[facility] General Surgery Reason: 3. A denocarcinoma Referral To:. Hematology-Oncology Hematology/Oncology Reason: Referral To:[facility] General Surgery Reason: 4. I rritable bowel syndrome with both constipation and diarrhea Referral To:. Gastroenterology Gastroenterology Reason: * Procedure Codes: 3 074F SYST BP LT 130 MM HG, 3078F DIAST BP < 80 MM HG * Follow Up: w [facility] oncology * Billing Information: * Visit Code: 37569 Office Visit, Est Pt., Level 3. * Procedure Codes: 3074F SYST BP LT 130 MM HG. 3078F DIAST BP < 80 MM HG. * Electronic signature of MELIDA Rodriguez on 01/28/2025 at 08:15 AM EDT Sign off status: Pending * Provider: MELIDA Corcoran Date: 0 09/18/2024 Generated for Katherine rojas/Memo/eTransmitting on: 0 01/28/2025 08:15 AM EDT History and Physical Notes * HPI (History of Present Illness) Category Sub-Category Detail Notes Category Not es Gastroenterology Patient als o needs a referral to Dr. Zaidi. She was seeing him in the past. HPI Patient is here toda y for Pt is here today to discuss breast carcinoma. Pt sts she had a left breast biopsy done on the and sts it came cancerous. Patient states she saw the results on her portal and has not heard back from the doctor who ordered the biopsy. Pt would like to discuss this and get a referral to oncology. Examination Category Sub-Category Detail Notes Category Not es General Examination Heart: RSR Lungs: clear to auscultatio n Abdomen: bowel sounds present , soft and nontender General Appearance: NAD Chest: normal shape and exp ansion Consultation Request Notes Referral Date Referring Provider Referred Provider Not es 09/18/2024 Zunilda Ross Gastroenterology, . 09/18/2024 Zunilda Ross Hematology-Oncology, . 09/18/2024 Zunilda Ross Walid
--- NOTE | 2025-01-28 08:15 | CA_ITS ---
APPROVED REPORT EXAM: Comprehensive 2D, Doppler, and color-flow Echocardiogram Steam Meter Reader: Jimena Patricio, RT(R) Ht: 5 ft 9 in Wt: 257lbs BSA: 2.30 BP: 118/72 mmHg Indications: dyspnea, Aortic stenosis, AFIB 2D Dimensions LA Volume 37.70 mL LA Volume Index 16.39 mL/m2 (M/F) 16-34 EF AP4 52.10 % GL Strain -17.4 % M-Mode Dimensions RVDd 3.26 cm (0.9-2.6) LA Diam 3.27 cm (1.9-4.0) LVDd 5.32 cm (3.5-5.7) LVDs 3.93 cm (3.5-5.7) IVSd 1.12 cm (0.6-1.1) PWd 1.07 cm (0.6-1.1) EF (Teich) 50.80% FS 26.10% EDV (Teich) 136.50 mL ESV (Teich) 67.10 mL LV Diastology E Decel Time 327 (160-240 msec) E/A Ratio 1.2 Aortic Valve KENDELL Index 0.40 cm2/m2 AoV Peak Tonio. 281.0 (50-130 cm/s) AI PHT 769.00 ms AO Peak GR. 31.60 mmHg AO Mean GR. 15.40 (<5 mmHg) AO VTI 69.7 (18-25 cm) KENDELL (VTI) 0.95 (2.5-4.5 cm2) Mitral Valve MV E Max Tonio. 105.0 (40-130 cm/s) MV A Velocity 91.0 (40-130 cm/s) E/A Ratio 1.15 MV PHT 96.0 ms Left Ventricle The left ventricle is normal size. The left ventricular systolic function is normal. The left ventricular ejection fraction is within the normal range. There is normal left ventricular wall thickness. There is normal LV segmental wall motion. LVEF is 55%. Right Ventricle The right ventricle is normal size. The right ventricular systolic function is normal. Atria The left atrium size is normal. The right atrium size is normal. There is no Doppler evidence of interatrial shunt. Aortic Valve The aortic valve is mildly thickened. Mild to moderate aortic stenosis present. KENDELL is 1.5 cm??? by continued equation. Peak velocity is 2.8 m/s. Mean AV gradient 18 mmHg. Max AV gradient 30 mmHg. DI=0.43. Moderate aortic regurgitation is present. Mitral Valve The mitral valve is normal in structure. No evidence of mitral valve stenosis. Trace mitral regurgitation. Tricuspid Valve The tricuspid valve leaflets are thin and pliable. Trace tricuspid regurgitation. There is insufficient TR jet to estimate RVSP. Pulmonic Valve The pulmonary valve is normal in structure. Trace pulmonic regurgitation. Great Vessels The aortic root is normal in size. IVC is normal in size and collapses >50% with inspiration. Pericardium There is no pericardial effusion. Other Information Study Quality: Fair Conclusion Normal biventricular systolic function. Moderate AI. Moderate (KENDELL is 1.5 cm??? by continued equation. Peak velocity is 2.8 m/s. Mean AV gradient 18 mmHg. Max AV gradient 30 mmHg. DI=0.43). When directly compared to prior TTE and BAILEY from 05/29/2024 and 05/06/2023, the AI severity is unchanged. The severity has worsened from mild to moderate. In the setting of progressive aortic valve disease and presence of symptoms, further evaluation with BAILEY is suggested to reevaluate for the mechanism of aortic stenosis/regurgitation, as well as evaluation of true KENDELL and ru alternative etiologies forling out elevated gradients, such as subaortic membrane. Electronically signed by : Cristy Cortez MD 02/09/2025 00:26:01
--- OUTSIDE RECORDS SUMMARY | 2025-01-28 08:15 | XMS_ITS | Clinical Summary ---
Author Organization [facility] Address [address] [place] [address] Care Team Providers Care Artist'S Manager Name Role Phone Ayan Huggins MD Primary Care Provider [phone] Social History Tobacco Use Types Packs/Day Years [...] 10/19/2023 [facility]-Zoster Vaccines (1 of 2) 10/19/2023 [id number] Vaccine (1 - 20 24-25 season) 2024 [...] to complete this topic Insurance Care Teams Artist'S Manager Relationship Specialty Start Date End Date Ayan Huggins MD [address] [place] [address] PCP - General 08/12/20
--- OUTSIDE RECORDS SUMMARY | 2025-01-28 08:15 | XMS_ITS | Patient Health Record ---
[facility] [address] [place] [id number] Care Team Providers Care Sanitation Worker Cleaning Machinery Name Role Phone Blane Alfaro Primary Care Provider Mukul Xie Unavailable [phone] Suki Raza Unavailable [phone] Zunilda Ross Unavailable [phone] Allergies No Known Allergies Results Component Value Reference Range Notes Event Recorder Reviewed date:05/19/2024 12:56:45 PM Interpretation: Performing Lab: Notes/Report: EKG Reviewed date:05/19/2024 12:57:53 PM Interpretation:SR Performing Lab: Notes/Report: SR X ray : Shoulder, right Reviewed date:05/21/2024 11:50:33 AM Interpretation:no acute process Performing Lab: Notes/Report: no acute process P-TSH Reviewed date:05/11/2024 08:57:15 AM Interpretation:Normal Performing Lab: Notes/Report: Test performed by [facility] [address] [place], [place] [address] , [address], [place] [address] Kashmir Covarrubias MD, Body Team Member CLIA: [id number] TSH 3.77 0.43-5.25 mU/L P-Comprehensive Metabolic Pa christopher (CMP) Reviewed date:05/11/2024 08:57:42 AM Interpretation:gluc 103, Ca 11.5 Performing Lab: Notes/Report: Test performed by [facility] [address] [place] [address] [address] Guzmán, [address], [place] [address] Kashmir Covarrubias MD, Body Team Member CLIA: [id number] Sodium 136 135-145 mmol/L Potassium 4.7 3.5-5.3 [...] 0.3 <0.2-1.2 mg/dL A/G Ratio 1.7 1.1-2.5 Glycohemoglobin A1c (in hous e) Reviewed date:05/11/2024 08:56:48 AM Interpretation:5.7% Performing Lab: Notes/Report: 5.7% glycohemoglobin 5.7% 5 - 6.5 % CBC Venipuncture (in house) Reviewed date:05/11/2024 08:56:25 AM Interpretation: Performing Lab: Notes/Report: wbc 10.2 3.5 - 10 lymph 33.0 15 - 50 mid 7.2 2 - 15 gran 59.8 35 - 80 rbc 4.62 3.5 - 5.5 hgb 14.3 11.5 - 16.5 hct 43.4 35 - 55 mcv 93.7 75 - 100 mch 31.0 25 - 35 mchc 33.0 31 - 38 platlet 305 100 - 400 Mammogram Reviewed date:08/31/2024 07:54:32 AM Interpretation:DR MCKENNA Performing Lab: Notes/Report: DR MCKENNA Medications Medication SIG (Take, Route, Frequency, Duration) Notes Start Date End Date Status Bystolic 10 MG 1 tablet Orally Once a day for 90 days Active Promethazine HCl 25 MG 1 tablet as neede d Orally every 6 hrs Active Ondansetron HCl 4 MG 1 tab(s) orally malini ry 8 hours Active Ventolin HFA 108 (90 Base) MCG/ACT 2 puff(s) inhaled before exercise Active Reglan 10 MG 1 tablet before meal s Orally Twice a day for 30 day(s) 01/18/2023 Active busPIRone HCl 10 MG 1 tablet Orally Twic e a day Active Black Cohosh Extract Active PARoxetine HCl 40 MG TAKE 1 TABLET BY [facility] ONCE DAILY AT BEDTIME for 90 Active Spironolactone 25 MG 1 tablet Orally Active Farxiga 10 MG 1 tablet Orally Once a day Active Entresto 24-26 MG 1 tablet Orally Twic e a day Active Immunizations Vaccine Route Administration Date Status Comme nts tuberculin (ppd) IM Intramuscular 12/02/2007 Administered tuberculin (ppd) ID Intradermal 03/30/2009 Administered Problems Problem Type SNOMED Code ICD Code Onset Dates Problem Status W/U Status Risk Notes Problem 254192867 Malignant neoplasm of unspecified site of left female breast (C50.912) Active confirmed Problem Hypothyroidism (71803116) Hypothyroidism (acquired) (E03.9) Active confirmed Problem 09981779 Vitamin D deficiency (E55.9) Active confirmed Problem 99095033 Essential hypertension (I10) Active confirmed Problem 38789296 Paresthesia (R20.2) Active confirmed Problem 451891467 Mixed hyperlipidemia (E78.2) Active confirmed Problem 308856504 Estrogen recepto r positive status [ER+] (Z17.0) Active confirmed Problem 01336449 Hypothyroidism, unspecified type (E03.9) Active confirmed Problem 13660151 Exercise-induced asthma (J45.990) Active confirmed Problem 60114642 Irritable bowel syndrome with both constipation and diarrhea (K58.2) Active confirmed Problem 87147294 Anxiety with depression (F41.8) Active confirmed Problem 015078570 Adenocarcinoma (C80.1) Active confirmed Problem Systolic heart failure (149555433) HFrEF (heart failure with reduced ejection fraction) (I50.20) Active confirmed Vital Signs Heart Rate 74 /min 09/18/2024 Blood pressure diastolic 74 mm Hg 09/18/2024 Height 68 in 09/18/2024 Blood pressure systolic 120 mm Hg 09/18/2024 Weight 267.4 lbs 09/18/2024 BMI 40.65 kg/m2 09/18/2024 Encounters Encounter Location Date Provider Diagnosis [facility] [address] [place] [id number] 04/27/2024 Suki Raza Tachycardia R00.0 ; Shoulder pain, right M25.511 ; Diabetes mellitus screening Z13.1 and HFrEF (heart failure with reduced ejection fraction) I50.20 [facility] [address] [place] [id number] 09/18/2024 Zunilda Vandana Malignant neoplasm o f unspecified site of left female breast C50.912 ; Estrogen receptor positive status [ER+] Z17.0 ; Adenocarcinoma C80.1 and Irritable bowel syndrome with both constipation and diarrhea K58.2 [facility] [address] [place] [id number] 09/21/2024 Zunilda Ross Assessments Encounter Date Diagnosis (ICD Code) Assessment Notes Treatment Notes Treatment Clinical Notes Section Notes 04/27/2024 Tachycardia (ICD-10 - R00.0) discussed when to go to ER --if symptomatic with rapid HR; even thpugh she just saw Cardiology; encouraged to FU with them this week 04/27/2024 Shoulder pain, right (ICD-10 - M25.511) heat/cold application prn; continue with OTC creams; motrin prn ; to see ortho 09/18/2024 Malignant neoplasm of unspecified site of left female breast (ICD-10 - C50.912) 09/18/2024 Estrogen receptor positive status [ER+] (ICD-10 - Z17.0) 09/18/2024 Adenocarcinoma (ICD-10 - C80.1) 04/27/2024 Diabetes mellitus screening (ICD-10 - Z13.1) 04/27/2024 HFrEF (heart failure with reduced ejection fraction) (ICD-10 - I50.20) 09/18/2024 Irritable bowel syndrome with both constipation and diarrhea (ICD-10 - K58.2) Plan Of Treatment No Information Insurance Providers Payer Name Payer Address Payer Phone Subscriber Number Group Number Insured Name Patient Relationship to Insured Coverage Start Date Coverage End Date [employer] [id number] [place] [address] [id number] CARLOS PICHARDO Self - patient is the insured Medical (General) History Medical History History ICD Code Fibromyalgia Arthritis Exercise Induced Asthma Surgical History Surgery Date(Month/Year) Cholecystectomy Hysterectomy 06/2017 Hospitalization History Reason Date(Month/Year)
--- OUTSIDE RECORDS SUMMARY | 2025-01-28 08:15 | XMS_ITS | Data Portability ---
Author Organization [facility] VIGNESH Aronld MARCELLUS CLOSED Address [address] [facility] [address] [place] [address] Assessment Encounter Date Assessment Date Assessment LastModified by Organization Details LastModified Time 11/05/2017 11/05/2017 1. Vertigo, worse on head turn right 2. Impaired balance 3. Headache Plan 1. Referral to ENT 2. For headaches she can use Aleve and caffeine 3. Schedule brain MRI w/wo contrast Follow up after scan [email or web address] Not available 11/06/2017 00:35:17 12/16/2017 12/16/2017 Assessment & Plan 1. Vertigo, worse on head turn right 2. Normal brain MRI scan with and without dye 3. Multiple transient neurological symptoms word finding impairment transient imbalance 4. Headache, non-specific 5. Obesity wt 247 lbs. BMI 36 Plan 1. Referral to ENT 2. For headaches she can use Aleve and caffeine I spent 25 minutes with patient greater than 50% of the time counseling [email or web address] Not available 12/19/2017 19:37:52 Plan of Treatment Reminders Order Date Submit Date Provider Last Modified By Organization Details Last Modified Time Details Appointments None recorded. Lab None recorded. Referral ENT referral 2017 018 [email or web address] Luciano Galavn MD, [address] [place] [address], [phone], 8 07:33:16 Procedures None recorded. Surgeries None recorded. Imaging MRI, brain, w/wo contrast 2017 018 [facility] [place] [facility], [address] [place], [address], 8 13:17:01 Medication Orders None recorded. Patient TargetsNo targets recorded. Patient Instructions Encounter Date Encounter Id Patient Instructions Last Modified By Organization Details Last Modified Time 11/05/2017 [id number] eating healthy foods: care instructions [email or web address] Not available 11/06/2017 16:38:22 elevated blood pressure: care instructions [email or web address] Not available 11/06/2017 16:38:22 hearing loss: care instructions [email or web address] Not available 11/06/2017 16:38:22 headache: care instructions [email or web address] Not available 11/06/2017 16:38:22 12/16/2017 [id number] When You Want to Lose Weight: Care Instructions [email or web address] Not available 12/19/2017 19:38:36 headache: care instructions [email or web address] Not available 12/19/2017 19:38:36 Reason for Referral ENT Referral for Impairment of balance Referring Physician: Ignacia Pitt, Neurology, Encounter Date: 11/05/2017 Results Created Date Observation Date Name Description Value Unit Range Abnormal Flag Note LastModifiedBy Organization Detail LastModifiedTime 12/17/19 18 12/16/2017 MRI, brain , w/wo contr ast [place] [facility] [address] [facility] [place] [address] Patimona summers Name: CARLOS DANIELSNgozi Benavides Tiffany summers : [birth year] 72 Tiffany summers 7 Orderi ng Provid er: IGNACIA PITT EXAM DATE: 2017 EXAM: MR BRAIN W/WO CONTRA ST HISTOR Y: 42-yea r-old female with migrai ne headac hes, dizzin ess, and visual loss. COMPAR LINDA: None. FINDIN GS: The ventri cles are symmet shannon, and normal in size. There is no mass, mass effect , or midlin e shift. There is no abnorm al extra- axial fluid, intrac ranial hemorr tanya, or infarc tion. The diffus ion weight ed sequen edwardo are normal . There are minima l perive ntricu lar white matter change s. After intrav enous admini strati on of [address] ([facility] [address]- 325-02 ), there is no abnorm al enhanc ement in the brain. The advisory intern al caroti d and basila r flow-v oids are normal . There is mild mucosa l thicke rosalie in the maxill nikita sinuse s. There is a left middle turbin ate marilu bullos a and nasal septal deviat ion to the right. There is promin ent mucosa l hypert rophy of the nasal turbin ates. IMPRES KENNEDY: 1. The brain is essent ially normal in appear ance. Interp reted By: Jennifer guerin MD Electr onical ly Signed By: Jennifer guerin MD on 12/17/19 18 1:11 PM [email or web address] [facility] [address], [address], 12/16/2017 13:28:57 Result Notes Documentation Provider Name and Address Organization Details Recorded Time Mri, Brain, W/wo Contrast : [address] [address] Patient Name: CARLOS LEYVA Patient : 1975 Patient Ordering Provider: IGNACIA PITT EXAM DATE: 12/16/2017 EXAM: MR BRAIN W/WO CONTRAST HISTORY: 42-year-old female with migraine headaches, dizziness, and visual loss. COMPARISON: None. FINDINGS: The ventricles are symmetric, and normal in size. There is no mass, mass effect, or midline shift. There is no abnormal extra-axial fluid, intracranial hemorrhage, or infarction. The diffusion weighted sequences are normal. There are minimal periventricular white matter changes. After intravenous administration of 10 cc Gadavist ([facility] [address]-725-18), there is no abnormal enhancement in the brain. The internal carotid and basilar flow-voids are normal. There is mild mucosal thickening in the maxillary sinuses. There is a left middle turbinate marilu bullosa and nasal septal deviation to the right. There is prominent mucosal hypertrophy of the nasal turbinates. IMPRESSION: 1. The brain is essentially normal in appearance. Interpreted By: Renzo Cuello MD [facility] 12/16/2017 13:28:57 Procedures Surgical History Date Name Laterality Status Provider Name and Address Organization Details Recorded Time Hysterectomy completed By[facility]cris Gallo [facility] 11/05/2017 14:05:38 Imaging Results None recorded. Procedure Notes None recorded. Medical Equipment None Reported. Allergies No known drug allergies Medications Name Sig Start Date Stop Date Status Note LastModified by Organization Details LastModified Time Singulair 10 mg tablet Take 1 tablet every day by oral route. active Not Available Not Available No t Available omeprazole 40 mg capsule,al yed release Take 1 capsule every day by oral route. 12/16 completed Not Available Not Available Not Available levothyroxin e 25 mcg tablet Take 1 tablet every day by oral route. active Not Available Not Available No t Available Zoloft 100 mg tablet Take 1 tablet every day by oral route. active Not Available Not Available No t Available Vitamin D 50,000 unit capsule Take 1 capsule twice a week by oral route. active Not Available Not Available No t Available ferrous sulfate active 2x/da y Not Available Not Available Not Available multivitamin active Not Available Not Available Not Available Vitals Date Recorded Body height Body mass index (BMI) Body weight Systolic blood pressure Diastolic blood pressure Provider Name and Address Organization Details Last Updated DateTime 11/05/2017 175.26 cm 36.8 kg/m2 449911.5 g 142 mm[Hg] 88 mm[Hg] [facility] 8 14:43:57 Date Recorded Body height Provider Name an d Address Organization Details Last Updated DateTime 12/16/2017 175.26 cm Francisco Javier Lockhart [facility] 12/16/2017 14:36:07 Date Recorded Body mass index (BMI) Body weight Systolic blood pressure Diastolic blood pressure Provider Name and Address Organization Details Last Updated DateTime 12/16/2017 36.5 kg/m2 028533.32 g 132 mm[Hg] 80 mm[Hg] [facility] 12/16/2017 15:09:35 Social History Question Answer Notes LastModified by Organizat ion Details LastModified Time Tobacco Smoking Status Never Smoker [facility] 11/05/2017 14:05:10 Marital Status [email or web address] Informatio n not available 11/05/2017 What Was The Date Of Your Most Recent Tobacco Screening? 12/16/2017 Information n ot available 09/29/2019 How Much Tobacco Do You Smoke? No Information not available 11/05/2017 Sex: Unknown Functional Status Question Answer Note LastModified by Organization D etails LastModified Time What is your level of alcohol consumption? None [email or web address] Information not available 11/05/2017 What is your occupation? TEACHER [email or web address] Information not available 11/05/2017 Mental Status None recorded. Family History Relationship Description Onset Age of this Age Resolved Age Notes LastModified by Organization Details LastModified Time Sister Hypertensive disorder [email or web address] Not available 2017 14:04:41 Sister Obesity [email or web address] Not available 12/16/2017 14:36:34 Father Hypertensive disorder [email or web address] Not available 2017 14:04:41 Father Family history of malignant neoplasm [email or web address] Not available 2017 14:04:48 Mother Hypertensive disorder [email or web address] Not available 2017 14:04:41 Maternal Grandmother Family history of malignant neoplasm Not available 2017 14:04:48 Medical History Condition Response Anxiety Disorder Y Arthritis Y Gynecological HistoryNo gynecological history recorded. Obstetrics History GPAL:G 0 P 0 0 0 0 Past Encounters Encounter ID Performer Location Encounter Start Date Encounter Closed Date Diagnosis/Indication Diagnosis SNOMED-CT Code Diagnosis ICD10 Code Diagnosis Note [id number] IGNACIA PITT MD NEUROLOGY [facility] [address] [place] [address] 11/05/2017 13:40:09 11/05/2017 16:00:32 Vertigo 057657138 R42 Impairment of balance 38 7658565 R26.89 Headache 55308777 R51 Hearing loss 08471674 H9 1.90 [id number] IGNACIA PITT MD NEUROLOGY [facility] [address] [facility] [place] [address] 12/16/2017 14:33:26 12/16/2017 15:48:03 Vertigo 555998504 R42 Transient neurological symptoms 793250228 R29.90 Headache 42141680 R51 Obesity 106458047 E66.9 Health Concerns Section Related Observation LastModified by Organization Detai ls LastModified Time None Recorded Concern Status LastModified by Organization Details LastModified Time None Recorded Advance Directives Directive None Recorded Payers Insurance Date Sequence Insurance Name Policy Number Policy Chakraborty Covered Member ID Chakraborty Member ID Guarantor Name 07/06/2020 1 [employer] - [facility] Mele Herrerabard [id number] Carlos Makayla Bills-[address] 07/06/2020 1 [employer] - [facility] (O) Mele Gilman Holden [id number] Carlos D Bills-Hubba rd Notes Date Note Type Note Provider Name and Address Organization Details Recorded Time 11/05/2017 text/html 42 year old luba ruff, from [place], seen at request Dr. 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 Is new to wear glasses, since July she is improved with glasses, wears to drive she says near sighted with astigmatism for 1 year intermittent vertigo, worse x 2 months has aura some headache former migraine at 20s and 30s, had nausea, some vomiting lasted several hours had to lay down, had to sleep off formerly tried tylenol and ibuprofen with success new headache does not have aura now has auras and does not have headache headache can be pounding some or no help ibuprofen tried sumatriptan, got rid of headache , but felt medicated never tried daily prevention meds IGNACIA PITT MD [address] [place] [address], [phone], [facility] 11/06/2017 00:35:54 12/16/2017 text/html return visit aft er tody's MRI brain good quality brain scan with and without dye. normal scan. No abnormality no tumor, no stroke, no plaque, no hydrocephalus no enhancing lesion with the dye scan She states she has started feeling better. IGNACIA PITT MD [address] [place] [address], [phone], [facility] 12/19/2017 19:38:38 OBGyn Episode No OBEpisode recorded.
[2025-01-28 09:05] LABS: Basophils # 0.1 K/mm3 (0-0.2); Basophils % 0.8 % (0.1-2.0); Eosinophils # 0.2 Kmm3 (0.0-0.4); Hematocrit 39.3 % (37.0-47.0); Hemoglobin 12.9 g/dL (12.2-16.2); Immature Granulocytes # 0.03 10^3uL; Immature Granulocytes % 0.4 %; Mean Corpuscular HGB Conc 32.8 g/dL (31.8-35.4); Mean Corpuscular Hemoglobin 30.3 pg (27.0-31.2); Mean Corpuscular Volume 92.3 fl (81-99); Mean Platelet Volume 10.8 fl (7.4-10.4); Monocytes # 0.6 K/mm3 (0.1-1.0); Monocytes % 7.2 % (1.7-9.3); Neutrophils # 4.1 K/mm3 (1.8-7.8); Neutrophils % 51.6 % (37.0-80.0); Nucleated Red Blood Cells # 0 10^3/uL; Nucleated Red Blood Cells % 0 %; Platelet Count 249 K/mm3 (142-424); Red Blood Count 4.26 M/mm3 (4.20-5.40); Red Cell Distribution Width 12.6 % (11.5-17.5); Red Cell Distribution Width-SD 42.4 fL
[2025-01-28 09:45] LABS: Alanine Aminotransferase 16 U/L (12-78); Albumin Level 3.9 g/dl (3.5-5.0); Alkaline Phosphatase 57 U/L (38-126); Aspartate Amino Transferase 22 U/L (14-36); Bilirubin,Direct 0.2 mg/dl (0.0-0.4); Bilirubin,Indirect 0.2 mg/dL (0.0-0.9); Bilirubin,Total 0.4 mg/dl (0.2-1.3); Bilirubin,Unconjugated 0.3 mg/dL (0.0-1.1); Blood Urea Nitrogen 15 mg/dl (7-17); Carbon Dioxide 26 mmol/L (22.0-30.0); Cholesterol 172 mg/dl (140-200); Estimated Glomerular Filt Rate 66 ml/min (>60); GFR (African American) 80 ML/MIN (>60); Glucose 95 mg/dl (74-100); HDL Cholesterol 43 mg/dl (40-60); Magnesium 2.2 mg/dl (1.6-2.3); Total Protein,Serum 6.6 g/dl (6.3-8.2); Triglycerides 189 mg/dl (30-150); VLDL Cholesterol 38 mg/dL (0-40)
[2025-01-28 10:01] LABS: Free T4 (Free Thyroxine) 0.95 ng/dl (0.78-2.19)
[2025-01-28 10:15] LABS: Thyroid Stimulating Hormone 1.59 uIU/mL (0.465-4.68)
[2025-01-28 10:25] LABS: Anion Gap 7.6 mEq/L (5-15); Chloride 108 mmol/L (98-107); Potassium 4.6 mmoL/L (3.5-5.1); Sodium 137 mmol/L (136-145)
[2025-01-28 10:40] LABS: Direct LDL Cholesterol 95.62 mg/dL (100-129)
== END 2025-01-28 23:59 | disposition home or self-care (01) ==
LOC: RT 08:13
PROVIDERS: PCP Family Medicine; Visit Provider Internal Medicine
DX: I35.0 Nonrheumatic aortic (valve) stenosis (principal); I35.1 Nonrheumatic aortic (valve) insufficiency; I48.91 Unspecified atrial fibrillation
CPT/HCPCS: 36415; 80048; 80061; 80076; 83735; 84439; 84443; 85025; 93306